=== PATIENT | female | born 1945 | race Caucasian/White ===

== ENCOUNTER → 2017-11-25 09:49 | Outpatient (CLI) | payer MEDICARE, SELFPAY ==
--- NOTE | 2017-11-25 | DI.MG.S_ITS ---
BILATERAL DIGITAL SCREENING MAMMOGRAM 3D/2D WITH CAD: 11/25/2017 CLINICAL: Routine screening. Comparison is made to exams dated: 11/10/2016 mammogram, 10/17/2015 mammogram, and 10/04/2014 mammogram - [facility]. The tissue of both breasts is heterogeneously dense. This may lower the sensitivity of mammography. Current study was also evaluated with a Computer Aided Detection (CAD) system. No significant masses, calcifications, or other findings are seen in either breast. There has been no significant interval change. IMPRESSION: NEGATIVE There is no mammographic evidence of malignancy. A 1 year screening mammogram is recommended. This exam was interpreted at Station ID: [id number]. NOTE: For mammograms, a report in lay terms will be sent to the patient. Approximately 15% of breast malignancies will not be visualized mammographically. In the management of a palpable breast mass, a negative mammogram must not discourage biopsy of a clinically suspicious lesion. Electronically Signed By: Prashanth lawrence/ashley:11/25/2017 10:53:22 letter sent: Normal Exam ACR BI-RADS Category 1: Negative [id number]
== END ==
PROVIDERS: PCP Family Medicine; Visit Provider Family Medicine
DX: Z12.31 Encounter for screening mammogram for malignant neoplasm of breast (principal)
CPT/HCPCS: 77063; 77067

== ENCOUNTER → 2018-03-14 18:38 | Outpatient (CLI) | payer MEDICARE, SELFPAY ==
--- NOTE | 2018-03-14 18:41 | DI.MRI.S_ITS ---
PROCEDURE: MR LUMBAR SPINE WO CON INDICATIONS: Back pain with sciatica TECHNIQUE: Noncontrast sagittal T1 spin echo and T2 fast echo, sagittal STIR, axial T1 and T2 fast spin echo through the lumbar spine. In cases with scoliosis, additional coronal T2 fast spin echo may be performed. COMPARISON: [facility], , L-SPINE WITHOUT CONTRAST, 03/12/2014, 18:11. FINDINGS: Image quality: Excellent. Alignment and Curvature: There is severe levoscoliosis with the apex at L4. There is grade 1 anterolisthesis of L5 on S1. Bone Marrow: Marrow is of normal overall signal. No acute vertebral body compression fractures. Spinal Cord: Conus medullaris terminates at the L1 at L2 level. Visualized cord demonstrates normal signal and size. Paraspinous Soft Tissues: No paravertebral masses. L1-L2: Moderate loss of disc height and disc desiccation. There is mild posterior disc bulge and left posterior lateral disc-osteophyte complex. The central canal is mildly narrowed. Moderate left foraminal stenosis, slightly increased from the last exam. No right foraminal stenosis. L2-L3: Moderate loss of disc height and disc desiccation. There is mild posterior disc bulge. Moderate left facet arthropathy The central canal is mildly narrowed. Moderate bilateral foraminal stenosis, slightly increased from the last exam. L3-L4: Mvoq-xn-vicadbuq loss of disc height and disc desiccation. There is diffuse posterior disc bulge and right posterolateral disc osteophyte complex. Moderate right facet arthropathy The central canal is gbly-qd-sloehxfyyp narrowed. Moderate right and mild left foraminal stenosis, unchanged from the last exam. L4-L5: Mild loss of disc height and disc desiccation. There is diffuse posterior disc bulge and disc osteophyte complex. Moderate right and mild left facet arthropathy The central canal is mildly narrowed. Severe right and mild left foraminal stenosis, increased from the last exam. L5-S1: Preserved disc height and disc desiccation. There is diffuse posterior disc bulge and disc osteophyte complex. Moderate right and moderate left facet arthropathy The central canal is mildly narrowed. Mild bilateral foraminal stenosis, unchanged from the last exam. IMPRESSION: 1. Multilevel degenerative disc disease and facet arthropathy as described. 2. Gaxy-oc-yivspfjo central canal stenosis at L3-L4, and mild central canal stenosis at other levels. 3. Multilevel foraminal stenosis, severe at L4-L5 on the right, moderate to mild at multiple other levels as described. 4. Severe scoliosis. Dictated by: Kit Martinez M.D. on 03/15/2018 at 9:32 Transcribed by: SARAH on 03/15/2018 at 9:49 Approved by: Kit Martinez M.D. on 03/15/2018 at 18:08
== END ==
PROVIDERS: PCP Family Medicine; Visit Provider Family Medicine
DX: M51.16 Intervertebral disc disorders with radiculopathy, lumbar region (principal); M48.061 Spinal stenosis, lumbar region without neurogenic claudication; M41.86 Other forms of scoliosis, lumbar region
CPT/HCPCS: 72148

== ENCOUNTER 2018-03-29 12:16 | Outpatient (CLI) | payer MEDICARE, SELFPAY ==
[2018-03-29] VITALS (8 sets, daily range): BP systolic 133–156; BP diastolic 78–91; PULSE 70–80; RESP 16–18; TEMP 36.2; O2SAT 97–100
--- NOTE | 2018-03-29 12:17 | DI.RAD.S_ITS ---
PROCEDURE: PAIN L/S TRANSFORAMINAL INJECT INDICATIONS: [id number] Right L3/4 Transforaminal Epidural Steroid Injection FINDINGS: Fluoroscopic spot filming was performed to verify placement of spinal needles at the L3-L4 level(s), as labeled on the films. Appropriate location(s) of the needle tip(s) was confirmed by injection of iodinated contrast. IMPRESSION: Fluoroscopy for pain management. Dictated by: Kit Martinez M.D. on 03/29/2018 at 13:38 Approved by: Kit Martinez M.D. on 03/29/2018 at 13:39
[2018-03-29] MEDS: MIDAZOLAM 5 MG/5 ML VIAL IV (13:07)
[2018-03-29] MEDS: IOPAMIDOL 15 ML VIAL 3 ML INJ (13:14)
[2018-03-29] MEDS: DEXAMETHASONE 10 MG/ML VIAL 20 MG INJ (13:15)
[2018-03-29] MEDS: methylPREDNISolone acetate 80 MG/ML VIAL INJ (13:15)
--- NOTE | 2018-03-29 13:25 | P.PCN_ITS ---
Procedures Date/Time Date of procedure: 03/29/18 Time of procedure: 13:24 General Procedure description: PROVIDER: Ramon Payton DO Operative Note PREOP DIAGNOSIS 1. FORAMINAL STENOSIS WITH LE SYMPTOMS, POST OP DIAGNOSIS 1. FORAMINAL STENOSIS WITH LE SYMPTOMS, PROCEDURES 1. FLUOROSCOPICALLY GUIDED CONTRAST CONTROLLED TRANSFORAMINAL EPIDURAL STEROID INJECTION - RIGHT L3/4 TFESI SURGEON: Ramon Payton DO INDICATIONS Naomi is referred by Dr. Pryor for treatment of Foraminal Stenosis with right LE Symptoms FINDINGS Foraminal Nerve Root Compression secondary to disc disease and facet hypertrophy DESCRIPTION OF PROCEDURE Following denial of allergy and review of potential side effects and complications, including, but not necessarily limited to, infection, allergic reaction, local tissue breakdown, stroke, temporary or permanent nerve injury, paralysis, and possible , the patient indicated that the patient understood and agreed to proceed. An informed consent document was signed by the patient, witnessed by a nurse, and placed in the patient's chart. Additionally, other treatment options including medications, modalities, and physical therapy were reviewed with the patient. After review of previous anaesthesic history and IV conscious sedation the patient was deemed safe to proceed with todays procedure with IV conscious sedation as ASA class II designation. Safety time-out was performed to confirm patient ID, procedure to be performed and site of procedure. IV sedation was accomplished with a combination of 3mg was administered by the RN after DO order , titrated to patient comfort during the course of the procedure while the patient remained responsive to all verbal commands In the prone position following sterile prep and drape of the lumbar region, the right L3/4 posterior neuroforamen was identified fluoroscopically. The skin was anesthetized via a 25-gauge 1.5-inch needle with 1% lidocaine solution. At this point, a 25-gauge 3.5-inch spinal needle was atraumatically introduced and advanced under fluoroscopic guidance through the posterior right L3/4 neuroforamen to approximately the anterior aspect of the canal. Depth was confirmed on lateral view. Following negative aspiration, injection of approximately 1.5 cc of Isovue 200 under live fluoroscopy in the AP view confirmed excellent flow along the nerve root, into the epidural space without vascular or intrathecal uptake observed Radiological data, including multiple fluoroscopic views of the lumbosacral spine, reveal a spinal needle at the right L3/4 posterior neuroforamen. Subsequent views show flow of contrast material flowing superiorly and inferiorly along the nerve root confirming epidural flow. Subsequently, a test dose of 1.5 cc of 1% lidocaine solution was administered and patient was observed for two minutes for signs or symptoms of complications , including abdominal pain, shortness of breath, bilateral upper or lower extremity weakness, nausea and vomiting, prior to steroid injection. At this point, a total of 3 cc or 20 mg of dexamethasone and 80mg Depo medrol was injected without incident. The patient tolerated the procedure well without signs or symptoms of complications prior to transfer to the recovery area continued monitoring without incident. The patient was then transferred to the recovery area where they were observed for an appropriate time after the injection. The patient reported a VAS score of 7 prior to the procedure and a post-procedure VAS of 0. Total Fluoroscopy Time: 24.2 seconds Total Conscious Sedation Time: 24min POST OP INSTRUCTIONS The patient was provided a Pain Log to continue to record their response to the target-specific procedure prior to follow-up visit with their referring physician. Additionally, specific post-injection care instructions and a contact number to our office were provided if concerns arise regarding possible complications associated with the procedure are suspected. Ramon Payton, Complications: none
== END 2018-03-29 14:50 | disposition home or self-care (01) ==
LOC: RAD 12:17
PROVIDERS: PCP Family Medicine; Visit Provider Physical Medicine & Rehabilitation
DX: M48.061 Spinal stenosis, lumbar region without neurogenic claudication (principal); M51.16 Intervertebral disc disorders with radiculopathy, lumbar region
CPT/HCPCS: 64483; 99152; J1040; J1100; J2250

== ENCOUNTER → 2018-05-02 10:37 | Outpatient (CLI) | payer MEDICARE, SELFPAY ==
[2018-05-02 11:34] LABS: Add Manual Diff / Slide Review NO; Basophils Percent Auto 0.6 % (0-2); Eosinophils Percent Auto 1.2 % (2-4); Hematocrit 44.2 % (36-46); Lymphocytes Percent Auto 24.1 % (25-40); Mean Corpuscular HGB Conc 33.9 % (30-36); Mean Corpuscular Hemoglobin 30.7 PG (26-34); Mean Corpuscular Volume 90.6 fL (80-100); Neutrophils Absolute Auto 3900 /uL (3000-5900); Neutrophils Percent Auto 67.1 % (50-75); Platelet Count 201 X10^3/uL (150-400); Red Blood Cell Count 4.87 X10^6/uL (4.0-5.2); White Blood Cell Count 5.8 X10^3/uL (4.5-11.0)
[2018-05-02 11:43] LABS: Alanine Aminotransferase 30 IU/L (9-52); Albumin 4.8 g/dL (3.5-5.0); Albumin Globulin Ratio 1.7 (1.0-2.8); Alkaline Phosphatase 78 U/L (38-126); Aspartate Aminotransferase 24 IU/L (14-36); Bilirubin Total 0.9 mg/dL (0.2-1.3); Blood Urea Nitrogen 15 mg/dL (7-17); Calcium 9.7 mg/dL (8.4-10.2); Carbon Dioxide 28 mmol/L (22-32); Chloride 105 mmol/L (98-107); Cholesterol 257 mg/dL (140-199); Estimated Glomerular Filt Rate 54.1 mL/min (>60); Globulin 2.9 g/dL (1.7-4.1); Glucose 113 mg/dL (80-110); HDL Cholesterol 101 mg/dL (40-60); HEMOLYSIS < 15 (0-50); LDL Cholesterol Calculated 111 mg/dL (<100); Potassium 4.3 mmol/L (3.4-5.1); Sodium 144 mmol/L (137-145); Total Protein 7.7 g/dL (6.3-8.2); Triglycerides 223 mg/dL (35-150)
[2018-05-02 12:24] LABS: TSH w/ Reflex to FT4 1.04 uIU/mL (0.47-4.68)
== END ==
PROVIDERS: PCP Family Medicine; Visit Provider Family Medicine
DX: E03.9 Hypothyroidism, unspecified (principal); E78.5 Hyperlipidemia, unspecified
CPT/HCPCS: 36415; 80053; 80061; 84443; 85025

== ENCOUNTER → 2018-05-04 11:03 | Outpatient (CLI) | payer MEDICARE, SELFPAY ==
[2018-05-04 11:37] LABS: INR 1.1 (0.9-1.3); Prothrombin Time 11.3 SECONDS (10.1-12.7)
[2018-05-04 11:44] LABS: Hemoglobin A1C% w Est Avg Glu 5.1 % (4.0-6.0)
== END ==
PROVIDERS: PCP Family Medicine; Visit Provider Family Medicine
DX: R23.8 Other skin changes (principal); R73.09 Other abnormal glucose
CPT/HCPCS: 36415; 83036; 85610

== ENCOUNTER 2018-06-07 10:30 | Outpatient (RCR) | payer MEDICARE, SELFPAY ==
--- NOTE | 2018-05-18 17:53 | PT.OIE ---
Current Diagnoses Scoliosis, unspecified (05/18/18) Spinal stenosis, lumbar region without neurogenic claudication (05/18/18) Difficulty in walking, not elsewhere classified (05/18/18) Abnormal posture (05/18/18) Weakness (05/18/18) Past Medical History (Last Reviewed 04/29/18 @ 10:01 by Ramon Payton DO) Actinic keratosis (Chronic) Constipation (Chronic) Depression (Chronic) Fibromyalgia (Chronic) Hemorrhoids (Chronic) Hyperlipidemia (Chronic) Hypothyroidism (Chronic) Osteoporosis (Chronic) Past Surgical History (Last Reviewed 04/29/18 @ 10:01 by Ramon Payton DO) Status post appendectomy (Resolved 1971) Status post delivery (Resolved 1970) Status post colonoscopy (Resolved 07/05/10) Status post hysterectomy with oophorectomy (Resolved 1995) Provider Visit Care Team Role Provider Type Nelsy Pryor DO Primary Care Provider Physician Specialty: Family Practice Address: [address] [place] [address] Email: [email or web address] Ramon Payton DO Attending Provider Physician Specialty: Physiatry Pain Management Address: [address] [place] [id number] Email: Physical Therapy Initial Evaluation PT-OP-A Visit Information Start: 05/18/18 09:11 Freq: Status: Active Protocol: Document 05/18/18 09:12 ML (Rec: 05/18/18 12:02 ML [id number]) Out-Patient Physical Therapy Visit Information Visit Information Visit Type Initial Evaluation Visit Start Time 09:00 Visit Stop Time 09:45 Total Visit Minutes 45 Visit Number 1 Number of COLD WATER MACHINE OPERATOR Visits 0 PT-OP-B Current Condition Start: 05/18/18 09:11 Freq: Status: Active Protocol: Document 05/18/18 09:12 ML (Rec: 05/18/18 12:02 ML [id number]) Current Condition History of Current Condition Current Complaints R leg pain/discomfort History of Current Condition Pt reports to PT with a diagnosis of a bulging disk, stenosis, and severe scoliosis that are significant factors in the pt's current pain. Pt's pain is due the impingement occurring from the pt's low back, where she indicates the origination from her R SI region. With PT, the patient will be able to improve her mobility, strength, and proper mechanics for her daily activities through neuromuscular re-education in order to eliminate pain that is elicited from her current diagnoses. Pt notes that the pain is 6-7/10 on average, and relieved with resting on her back and heat to about 4/10 pain. She also states that she uses an SI belt for times of activity and occasionally a knee brace on R as well. Pt notes that the pain is mostly noticed as soon as she stops activity. 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 but she has had high levels of pain and discomfort through these exercises. Pt states that she gets R leg pain when she is laying on either her L or R side, and finds relief on her back. Pt is able to reposition at night when she wakes from pain in either of those positions and returns to her back and can sleep again. Pt notes she moves in her sleep frequently but is getting better about sleeping on her back. Pt notes two abdominal surgeries and a signifcant fall about 10 years ago when she became unconscious and hit her head on the wall and fell hard to the ground. Pt notes feeling off on her R side when she walks. Her R leg pain also bothers her R knee at times. Pt notices the R leg pain throughout her entire thigh region, but states there's more tightness on the broad lateral surface. The pt inidicates the pain orginiating from her R SI region. 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 Prior Functional Status Baseline Function- ADL's Independent Baseline Function- Mobility Independent Baseline Function- Gait Antalgic PT-OP-C Subjective Start: 05/18/18 09:11 Freq: Status: Active Protocol: Document 05/18/18 09:12 ML (Rec: 05/18/18 12:25 ML [id number]) OP-PT Subjective Patient Comments Patient Comments Pt does not complain of inc pain throughout physical assessment. Pt is able to move through motions with maintaining average pain level . Patient Reported Progress Same Patient Questionnaires Oswestry Low Back Index Oswestry Score 13 Oswestry Impairment 20 to 39% Impaired (Score 20- 39) OP-PT Pain Assessment Location R leg Pain Location Details Lateral surface most, but globally though her R leg from the SI region Intensity 7 Scale Used Numeric (1 - 10) Description Aching Tightness With Movement Description- Other discomfort Frequency Constant Pain Duration always, but relieved some with supine and heat Pain Aggravating Factors ADL's Activity Exercise Walking Stair Climbing Bending Lifting Pain Alleviating Factors Heat Lying Supine PT-OP-G Mobility & Gait Start: 05/18/18 09:11 Freq: Status: Active Protocol: Document 05/18/18 09:12 [facility] (Rec: 05/18/18 10:02 [facility] [id number]) OP Gait Assessment Comments Gait Comments Pt has lat shear of body to L and has dec RUE arm swing. Pt overall uses leg motions & min pelvic rotations to propel herself with dec use of trunk. PT-OP-J Posture/Palpation/Skin Start: 05/18/18 09:11 Freq: Status: Active Protocol: Document 05/18/18 09:12 [facility] (Rec: 05/18/18 10:02 [facility] [id number]) Posture Evaluation [facility] Postural Classification System Kaley Postural Classifications Posterior/Posterior PT-OP-K Range of Motion Start: 05/18/18 09:11 Freq: Status: Active Protocol: Document 05/18/18 09:12 [facility] (Rec: 05/18/18 10:02 [facility] [id number]) Lumbar Spine Range of Motion Lumbar Spine Active Testing Position Standing Rotation Left 44 Rotation Right 40 Comments Tape measure used for flex: 18 in to 22 in; ext 18 in to 16. 5 in; SB R 7 in- pain returning to standing on R side, L 6.5 in; rotation in degrees PT-OP-L Special Tests Start: 05/18/18 09:11 Freq: Status: Active Protocol: Document 05/18/18 09:12 [facility] (Rec: 05/18/18 10:02 [facility] [id number]) Special Tests Lumbar Spine Special Tests Slump Test Results R positive Straight Leg Raise Test Results R ~ 65 deg HS stretch; L ~75 deg HS stretch PT-OP-M Strength Start: 05/18/18 09:11 Freq: Status: Active Protocol: Document 05/18/18 09:12 [facility] (Rec: 05/18/18 10:02 [facility] [id number]) Hip Strength Hip Manual Muscle Testing Right Flexion (L2) 4 Good Extension (S1) 4- Good- Abduction 4- Good- External Rotation 4 Good Internal Rotation 4 Good Left Flexion (L2) 4 Good Extension (S1) 4+ Good+ Abduction 4+ Good+ External Rotation 4 Good Internal Rotation 4+ Good+ Knee Strength Knee Manual Muscle Testing Right Flexion (S2) 5 Normal Extension (L3) 5 Normal Left Flexion (S2) 5 Normal Extension (L3) 5 Normal PT-OP-T Assessment and Plan Start: 05/18/18 09:11 Freq: Status: Active Protocol: Document 05/18/18 09:12 ML (Rec: 05/18/18 12:25 ML [id number]) Physical Therapy Assessment Rehab Potential Rehabilitation Potential Good Evaluation Complexity Number of Personal Factors/Comorbidities 3 or More Number of Body Systems Impaired 4 or More Clinical Presentation at Evaluation Stable Impairments Impairments Activity Tolerance Functional Activities Functional Mobility Gait Pain Posture ROM Soft Tissue Mobility Strength Goals 3 Impairment pain Short Term Goal (STG) Pt will be able to sleep at night not waking due to pain. STG Duration 06/17/18 Adzing And Boring Machine Operator Goal (LTG) Pt will be able to go throughout her daily activities with pain no greater than 4/10. LTG Duration 07/18/18 2 Impairment dec strength Short Term Goal (STG) Pt will be independent with HEP in order to inc strength for functional activities. STG Duration 06/17/18 Adzing And Boring Machine Operator Goal (LTG) Pt will have 5/5 strength for all LE strength in order to do IADLs like gardening, pilot supervisor, etc. LTG Duration 07/18/18 1 Impairment dec activity tolerance Adzing And Boring Machine Operator Goal (LTG) Pt's pain with walking will be no greater than 4/10. LTG Duration 07/18/18 Assessment Summary Assessment Pt's symptoms are consistent with neural impingement through her stenosis and disk bulge, but the descriptive words do not match solely neural symptoms and the location of the pain is not following a specific nerve distribution. The gross area in which the pain encompasses indicates that there is also additional components of postural and structural abnormalities of her joints through her lumbar spine, pelvis, and sacrum, as well as potentially her hip, that are contributing to this pain. Pt would benefit from PT to decrease these abnormalities as able, increase neural gliding, and allowing the pt to return to her functional activities with decreased pain through her R LE. Physical Therapy Plan Frequency and Duration Frequency of Treatment 2x/Week Duration of Treatment 2 months Plan of Care Start Date 05/18/18 Plan of Care End Date 07/18/18 Therapeutic Interventions Therapeutic Interventions Aquatic Therapy Gait Training Home Exercise Program Joint Mobilizations Manual Therapy Neuromuscular Re-education Patient/Caregiver Education Self-Care/Home Management Soft Tissue Mobilization Taping Therapeutic Activities Therapeutic Exercises Modalities Cold Pack/Ice Massage Electric Stimulation Hot Packs Infrared Therapy Iontophoresis Ultrasound Next Visit Focus/Plan Next Note Type Treatment Note Next Visit Plan HEP for posture, hip strength (ext/bridge and abd), PNF pelvis
--- NOTE | 2018-05-18 17:54 | PT.OPPOC ---
Current Diagnoses Scoliosis, unspecified (05/18/18) Spinal stenosis, lumbar region without neurogenic claudication (05/18/18) Difficulty in walking, not elsewhere classified (05/18/18) Abnormal posture (05/18/18) Weakness (05/18/18) Provider Visit Care Team Role Provider Type Nelsy Pryor DO Primary Care Provider Physician Specialty: Family Practice Address: [address] [place] [address], [id number] Email: [email or web address] Ramon Payton DO Attending Provider Physician Specialty: Physiatry Pain Management Address: [address] [place] [address], [id number] Email: Plan Of Care PT-OP-T Assessment and Plan Start: 05/18/18 09:11 Freq: Status: Active Protocol: Document 05/18/18 09:12 ML (Rec: 05/18/18 12:25 ML [id number]) Physical Therapy Assessment Rehab Potential Rehabilitation Potential Good Evaluation Complexity Number of Personal Factors/Comorbidities 3 or More Number of Body Systems Impaired 4 or More Clinical Presentation at Evaluation Stable Impairments Impairments Activity Tolerance Functional Activities Functional Mobility Gait Pain Posture ROM Soft Tissue Mobility Strength Goals 3 Impairment pain Short Term Goal (STG) Pt will be able to sleep at night not waking due to pain. STG Duration 06/17/18 Fence Erector Supervisor Goal (LTG) Pt will be able to go throughout her daily activities with pain no greater than 4/10. LTG Duration 07/18/18 2 Impairment dec strength Short Term Goal (STG) Pt will be independent with HEP in order to inc strength for functional activities. STG Duration 06/17/18 Fence Erector Supervisor Goal (LTG) Pt will have 5/5 strength for all LE strength in order to do IADLs like gardening, leguillon debeader, etc. LTG Duration 07/18/18 1 Impairment dec activity tolerance Fence Erector Supervisor Goal (LTG) Pt's pain with walking will be no greater than 4/10. LTG Duration 07/18/18 Assessment Summary Assessment Pt's symptoms are consistent with neural impingement through her stenosis and disk bulge, but the descriptive words do not match solely neural symptoms and the location of the pain is not following a specific nerve distribution. The gross area in which the pain encompasses indicates that there is also additional components of postural and structural abnormalities of her joints through her lumbar spine, pelvis, and sacrum, as well as potentially her hip, that are contributing to this pain. Pt would benefit from PT to decrease these abnormalities as able, increase neural gliding, and allowing the pt to return to her functional activities with decreased pain through her R LE. Physical Therapy Plan Frequency and Duration Frequency of Treatment 2x/Week Duration of Treatment 2 months Plan of Care Start Date 05/18/18 Plan of Care End Date 07/18/18 Therapeutic Interventions Therapeutic Interventions Aquatic Therapy Gait Training Home Exercise Program Joint Mobilizations Manual Therapy Neuromuscular Re-education Patient/Caregiver Education Self-Care/Home Management Soft Tissue Mobilization Taping Therapeutic Activities Therapeutic Exercises Modalities Cold Pack/Ice Massage Electric Stimulation Hot Packs Infrared Therapy Iontophoresis Ultrasound Next Visit Focus/Plan Next Note Type Treatment Note Next Visit Plan HEP for posture, hip strength (ext/bridge and abd), PNF pelvis Plan of Care Dates Plan of Care Start Date 05/18/18 Plan of Care End Date 07/18/18 Please Sign and Return: I have reviewed this Plan of Care and certify that the skilled therapy services above are required to meet the patient?s needs. Physician Signature Date Printed Name and Credentials Clinical Instructor Signature Printed Name and Credentials
--- NOTE | 2018-05-25 18:22 | PT.OTN ---
Current Diagnoses Scoliosis, unspecified (05/25/18) Spinal stenosis, lumbar region without neurogenic claudication (05/25/18) Physical Therapy Treatment Note PT-OP-A Visit Information Start: 05/18/18 09:11 Freq: Status: Active Protocol: Document 05/25/18 18:11 ML (Rec: 05/25/18 18:18 ML [id number]) Out-Patient Physical Therapy Visit Information Visit Information Visit Type Treatment Note Visit Start Time 16:00 Visit Stop Time 16:48 Total Visit Minutes 48 Visit Number 2/10 Number of POOL MANAGER Visits 0 PT-OP-B Current Condition Start: 05/18/18 09:11 Freq: Status: Active Protocol: Document 05/18/18 09:12 ML (Rec: 05/18/18 12:02 ML [id number]) Current Condition History of Current Condition Current Complaints R leg pain/discomfort History of Current Condition Pt reports to PT with a diagnosis of a bulging disk, stenosis, and severe scoliosis that are significant factors in the pt's current pain. Pt's pain is due the impingement occurring from the pt's low back, where she indicates the origination from her R SI region. With PT, the patient will be able to improve her mobility, strength, and proper mechanics for her daily activities through neuromuscular re-education in order to eliminate pain that is elicited from her current diagnoses. Pt notes that the pain is 6-7/10 on average, and relieved with resting on her back and heat to about 4/10 pain. She also states that she uses an SI belt for times of activity and occasionally a knee brace on R as well. Pt notes that the pain is mostly noticed as soon as she stops activity. Pt is still able to do activities such was walking , ambulating stairs, gardening , broom builder, etc. but she has had high levels of pain and discomfort through these exercises. Pt states that she gets R leg pain when she is laying on either her L or R side, and finds relief on her back. Pt is able to reposition at night when she wakes from pain in either of those positions and returns to her back and can sleep again. Pt notes she moves in her sleep frequently but is getting better about sleeping on her back. Pt notes two abdominal surgeries and a signifcant fall about 10 years ago when she became unconscious and hit her head on the wall and fell hard to the ground. Pt notes feeling off on her R side when she walks. Her R leg pain also bothers her R knee at times. Pt notices the R leg pain throughout her entire thigh region, but states there's more tightness on the broad lateral surface. The pt inidicates the pain orginiating from her R SI region. Developmental History Developmental History Severe scoliosis Treatment Goals Patient/Caregiver Goals Pt would like to participate in her usual activities such as gardening, broom builder , and walking without pain/ discomfort. Prior Functional Status Baseline Function- ADL's Independent Baseline Function- Mobility Independent Baseline Function- Gait Antalgic PT-OP-C Subjective Start: 05/18/18 09:11 Freq: Status: Active Protocol: Document 05/25/18 18:11 ML (Rec: 05/25/18 18:18 ML [id number]) OP-PT Subjective Patient Comments Patient Comments pt notes that she did a lot of activity yesterday and is in a good amount of pain today. PT-OP-G Mobility & Gait Start: 05/18/18 09:11 Freq: Status: Active Protocol: Document 05/18/18 09:12 [facility] (Rec: 05/18/18 10:02 [facility] [id number]) OP Gait Assessment Comments Gait Comments Pt has lat shear of body to L and has dec RUE arm swing. Pt overall uses leg motions & min pelvic rotations to propel herself with dec use of trunk. PT-OP-J Posture/Palpation/Skin Start: 05/18/18 09:11 Freq: Status: Active Protocol: Document 05/18/18 09:12 [facility] (Rec: 05/18/18 10:02 [facility] [id number]) Posture Evaluation Kaley Postural Classification System Kaley Postural Classifications Posterior/Posterior PT-OP-K Range of Motion Start: 05/18/18 09:11 Freq: Status: Active Protocol: Document 05/18/18 09:12 [facility] (Rec: 05/18/18 10:02 [facility] [id number]) Lumbar Spine Range of Motion Lumbar Spine Active Testing Position Standing Rotation Left 44 Rotation Right 40 Comments Tape measure used for flex: 18 in to 22 in; ext 18 in to 16. 5 in; SB R 7 in- pain returning to standing on R side, L 6.5 in; rotation in degrees PT-OP-L Special Tests Start: 05/18/18 09:11 Freq: Status: Active Protocol: Document 05/18/18 09:12 [facility] (Rec: 05/18/18 10:02 [facility] [id number]) Special Tests Lumbar Spine Special Tests Slump Test Results R positive Straight Leg Raise Test Results R ~ 65 deg HS stretch; L ~75 deg HS stretch PT-OP-M Strength Start: 05/18/18 09:11 Freq: Status: Active Protocol: Document 05/18/18 09:12 [facility] (Rec: 05/18/18 10:02 [facility] [id number]) Hip Strength Hip Manual Muscle Testing Right Flexion (L2) 4 Good Extension (S1) 4- Good- Abduction 4- Good- External Rotation 4 Good Internal Rotation 4 Good Left Flexion (L2) 4 Good Extension (S1) 4+ Good+ Abduction 4+ Good+ External Rotation 4 Good Internal Rotation 4+ Good+ Knee Strength Knee Manual Muscle Testing Right Flexion (S2) 5 Normal Extension (L3) 5 Normal Left Flexion (S2) 5 Normal Extension (L3) 5 Normal PT-OP-Q Treatments Start: 05/18/18 09:11 Freq: Status: Active Protocol: Document 05/25/18 18:11 ML (Rec: 05/25/18 18:18 ML [id number]) Therapeutic Exercises Supine Exercises bridge Side bilateral Comments HEP; cues for engaging core first Sidelying Exercises clamshells Resistance lvl 1 Comments HEP; cues for core engage first; towel and pillows for comfort hip abd Resistance lvl 1 Comments HEP; cues for core engage first; towel and pillows for comfort Manual Therapy Treatment Soft Tissue Mobilization IT band Body Location IT band distally Mobilization Type Myofascial Release Sustained Pressure Body Position Hooklying Comments active DF/PF; R Self-Care/Home Management Treatment Education Patient Education Joint Protection Pain Management Posture Other Education sleeping position in side lying; propping with pillows and towel; pt unable to lay on either side prior; pt also edu on standing and sitting posture for rib and neck position especially; also addressed the importance of ice and heat when aggravated or after manual treatment PT-OP-T Assessment and Plan Start: 05/18/18 09:11 Freq: Status: Active Protocol: Document 05/25/18 18:11 ML (Rec: 05/25/18 18:18 ML [id number]) Physical Therapy Assessment Goals 3 Impairment pain Short Term Goal (STG) Pt will be able to sleep at night not waking due to pain. STG Duration 06/17/18 Correction Goal (LTG) Pt will be able to go throughout her daily activities with pain no greater than 4/10. LTG Duration 07/18/18 2 Impairment dec strength Short Term Goal (STG) Pt will be independent with HEP in order to inc strength for functional activities. STG Duration 06/17/18 Slitter Operator Goal (LTG) Pt will have 5/5 strength for all LE strength in order to do IADLs like gardening, broom builder, etc. LTG Duration 07/18/18 1 Impairment dec activity tolerance Correction Goal (LTG) Pt's pain with walking will be no greater than 4/10. LTG Duration 07/18/18 Assessment Summary Assessment Pt showed ability to maintain improved posture through educational adjustments both verbally and with tactile cues . Pt was able to lay both on L and R which she was unable to do prior to treatment. pt was able to achieve all HEP exercises without pain and correct mechanics after instruction and maintaining supported side lying posture. Pt's IT band was very tight and was addressed manually. pt notes relief after treament. Physical Therapy Plan Frequency and Duration Frequency of Treatment 2x/Week Duration of Treatment 2 months Plan of Care Start Date 05/18/18 Plan of Care End Date 07/18/18 Next Visit Focus/Plan Next Note Type Treatment Note Next Visit Plan review HEP for posture, hip strength (ext/bridge and abd), PNF pelvis R; soft tissue prn ; heat
--- NOTE | 2018-05-31 16:08 | PT.OTN ---
Current Diagnoses Scoliosis, unspecified (05/31/18) Spinal stenosis, lumbar region without neurogenic claudication (05/31/18) Physical Therapy Treatment Note PT-OP-A Visit Information Start: 05/18/18 09:11 Freq: Status: Active Protocol: Document 05/31/18 15:54 SA (Rec: 05/31/18 16:08 SA [email or web address]) Out-Patient Physical Therapy Visit Information Visit Information Visit Type Treatment Note Visit Start Time 14:30 Visit Stop Time 15:18 Total Visit Minutes 48 Visit Number 3/10 Number of ROCK CRUSHING MACHINE OPERATOR Visits 1 PT-OP-B Current Condition Start: 05/18/18 09:11 Freq: Status: Active Protocol: Document 05/18/18 09:12 ML (Rec: 05/18/18 12:02 ML [id number]) Current Condition History of Current Condition Current Complaints R leg pain/discomfort History of Current Condition Pt reports to PT with a diagnosis of a bulging disk, stenosis, and severe scoliosis that are significant factors in the pt's current pain. Pt's pain is due the impingement occurring from the pt's low back, where she indicates the origination from her R SI region. With PT, the patient will be able to improve her mobility, strength, and proper mechanics for her daily activities through neuromuscular re-education in order to eliminate pain that is elicited from her current diagnoses. Pt notes that the pain is 6-7/10 on average, and relieved with resting on her back and heat to about 4/10 pain. She also states that she uses an SI belt for times of activity and occasionally a knee brace on R as well. Pt notes that the pain is mostly noticed as soon as she stops activity. Pt is still able to do activities such was walking , ambulating stairs, gardening , analytics leader, etc. but she has had high levels of pain and discomfort through these exercises. Pt states that she gets R leg pain when she is laying on either her L or R side, and finds relief on her back. Pt is able to reposition at night when she wakes from pain in either of those positions and returns to her back and can sleep again. Pt notes she moves in her sleep frequently but is getting better about sleeping on her back. Pt notes two abdominal surgeries and a signifcant fall about 10 years ago when she became unconscious and hit her head on the wall and fell hard to the ground. Pt notes feeling off on her R side when she walks. Her R leg pain also bothers her R knee at times. Pt notices the R leg pain throughout her entire thigh region, but states there's more tightness on the broad lateral surface. The pt inidicates the pain orginiating from her R SI region. Developmental History Developmental History Severe scoliosis Treatment Goals Patient/Caregiver Goals Pt would like to participate in her usual activities such as gardening, analytics leader , and walking without pain/ discomfort. Prior Functional Status Baseline Function- ADL's Independent Baseline Function- Mobility Independent Baseline Function- Gait Antalgic PT-OP-C Subjective Start: 05/18/18 09:11 Freq: Status: Active Protocol: Document 05/31/18 15:54 SA (Rec: 05/31/18 16:08 SA [email or web address]) OP-PT Subjective Patient Comments Patient Comments Pt with c/o pain at low back and R lateral knee and thigh. States she feels about the same as last time. PT-OP-G Mobility & Gait Start: 05/18/18 09:11 Freq: Status: Active Protocol: Document 05/18/18 09:12 [facility] (Rec: 05/18/18 10:02 [facility] [id number]) OP Gait Assessment Comments Gait Comments Pt has lat shear of body to L and has dec RUE arm swing. Pt overall uses leg motions & min pelvic rotations to propel herself with dec use of trunk. PT-OP-J Posture/Palpation/Skin Start: 05/18/18 09:11 Freq: Status: Active Protocol: Document 05/18/18 09:12 [facility] (Rec: 05/18/18 10:02 [facility] [id number]) Posture Evaluation Kaley Postural Classification System Kaley Postural Classifications Posterior/Posterior PT-OP-K Range of Motion Start: 05/18/18 09:11 Freq: Status: Active Protocol: Document 05/18/18 09:12 [facility] (Rec: 05/18/18 10:02 [facility] [id number]) Lumbar Spine Range of Motion Lumbar Spine Active Testing Position Standing Rotation Left 44 Rotation Right 40 Comments Tape measure used for flex: 18 in to 22 in; ext 18 in to 16. 5 in; SB R 7 in- pain returning to standing on R side, L 6.5 in; rotation in degrees PT-OP-L Special Tests Start: 05/18/18 09:11 Freq: Status: Active Protocol: Document 05/18/18 09:12 [facility] (Rec: 05/18/18 10:02 [facility] [id number]) Special Tests Lumbar Spine Special Tests Slump Test Results R positive Straight Leg Raise Test Results R ~ 65 deg HS stretch; L ~75 deg HS stretch PT-OP-M Strength Start: 05/18/18 09:11 Freq: Status: Active Protocol: Document 05/18/18 09:12 [facility] (Rec: 05/18/18 10:02 [facility] [id number]) Hip Strength Hip Manual Muscle Testing Right Flexion (L2) 4 Good Extension (S1) 4- Good- Abduction 4- Good- External Rotation 4 Good Internal Rotation 4 Good Left Flexion (L2) 4 Good Extension (S1) 4+ Good+ Abduction 4+ Good+ External Rotation 4 Good Internal Rotation 4+ Good+ Knee Strength Knee Manual Muscle Testing Right Flexion (S2) 5 Normal Extension (L3) 5 Normal Left Flexion (S2) 5 Normal Extension (L3) 5 Normal PT-OP-Q Treatments Start: 05/18/18 09:11 Freq: Status: Active Protocol: Document 05/31/18 15:54 SA (Rec: 05/31/18 16:08 [email or web address]) Therapeutic Exercises Supine Exercises Pelvic Tilts Reps/Minutes 15x bridge Side bilateral Comments HEP; cues for engaging core first Sidelying Exercises clamshells Resistance lvl 1 Comments HEP; cues for core engage first; towel and pillows for comfort hip abd Resistance lvl 1 Comments HEP; cues for core engage first; towel and pillows for comfort Manual Therapy Treatment Soft Tissue Mobilization IT band Body Location IT band distally Mobilization Type Myofascial Release Sustained Pressure Body Position Hooklying Comments active DF/PF; R PT-OP-R Modalities Start: 05/18/18 09:11 Freq: Status: Active Protocol: Document 05/31/18 15:54 SA (Rec: 05/31/18 16:08 SA [email or web address]) Hot Pack/Cold Pack Treatment Hot Pack Location R ITB Treatment Duration (minutes) 10 Comments Pt responded well to heat. PT-OP-T Assessment and Plan Start: 05/18/18 09:11 Freq: Status: Active Protocol: Document 05/31/18 15:54 SA (Rec: 05/31/18 16:08 [email or web address]) Physical Therapy Assessment Assessment Summary Assessment Recommended pt use a roller on R ITB, pt to purchase one and use prior to next visit. Physical Therapy Plan Next Visit Focus/Plan Next Note Type Treatment Note Next Visit Plan Progress hip strengthening core stability program as tolerated. Assess patients response to rolling R ITB.
--- NOTE | 2018-06-03 10:33 | PT.OTN ---
Current Diagnoses Scoliosis, unspecified (06/03/18) Spinal stenosis, lumbar region without neurogenic claudication (06/03/18) Physical Therapy Treatment Note PT-OP-A Visit Information Start: 05/18/18 09:11 Freq: Status: Active Protocol: Document 06/03/18 10:25 SA (Rec: 06/03/18 10:32 SA [email or web address]) Out-Patient Physical Therapy Visit Information Visit Information Visit Type Treatment Note Visit Start Time 09:00 Visit Stop Time 09:48 Total Visit Minutes 48 Visit Number 4/10 Number of PRETZEL PACKER Visits 2 PT-OP-B Current Condition Start: 05/18/18 09:11 Freq: Status: Active Protocol: Document 05/18/18 09:12 ML (Rec: 05/18/18 12:02 ML [id number]) Current Condition History of Current Condition Current Complaints R leg pain/discomfort History of Current Condition Pt reports to PT with a diagnosis of a bulging disk, stenosis, and severe scoliosis that are significant factors in the pt's current pain. Pt's pain is due the impingement occurring from the pt's low back, where she indicates the origination from her R SI region. With PT, the patient will be able to improve her mobility, strength, and proper mechanics for her daily activities through neuromuscular re-education in order to eliminate pain that is elicited from her current diagnoses. Pt notes that the pain is 6-7/10 on average, and relieved with resting on her back and heat to about 4/10 pain. She also states that she uses an SI belt for times of activity and occasionally a knee brace on R as well. Pt notes that the pain is mostly noticed as soon as she stops activity. Pt is still able to do activities such was walking , ambulating stairs, gardening , perfume and toilet water maker, etc. but she has had high levels of pain and discomfort through these exercises. Pt states that she gets R leg pain when she is laying on either her L or R side, and finds relief on her back. Pt is able to reposition at night when she wakes from pain in either of those positions and returns to her back and can sleep again. Pt notes she moves in her sleep frequently but is getting better about sleeping on her back. Pt notes two abdominal surgeries and a signifcant fall about 10 years ago when she became unconscious and hit her head on the wall and fell hard to the ground. Pt notes feeling off on her R side when she walks. Her R leg pain also bothers her R knee at times. Pt notices the R leg pain throughout her entire thigh region, but states there's more tightness on the broad lateral surface. The pt inidicates the pain orginiating from her R SI region. Developmental History Developmental History Severe scoliosis Treatment Goals Patient/Caregiver Goals Pt would like to participate in her usual activities such as gardening, perfume and toilet water maker , and walking without pain/ discomfort. Prior Functional Status Baseline Function- ADL's Independent Baseline Function- Mobility Independent Baseline Function- Gait Antalgic PT-OP-C Subjective Start: 05/18/18 09:11 Freq: Status: Active Protocol: Document 06/03/18 10:32 SA (Rec: 06/03/18 10:33 SA [email or web address]) OP-PT Subjective Patient Comments Patient Comments [place] some relief after last visit. Think the heat and STM helps Patient Reported Progress Improving PT-OP-G Mobility & Gait Start: 05/18/18 09:11 Freq: Status: Active Protocol: Document 05/18/18 09:12 [facility] (Rec: 05/18/18 10:02 [facility] [id number]) OP Gait Assessment Comments Gait Comments Pt has lat shear of body to L and has dec RUE arm swing. Pt overall uses leg motions & min pelvic rotations to propel herself with dec use of trunk. PT-OP-J Posture/Palpation/Skin Start: 05/18/18 09:11 Freq: Status: Active Protocol: Document 05/18/18 09:12 [facility] (Rec: 05/18/18 10:02 [facility] [id number]) Posture Evaluation Kaley Postural Classification System Kaley Postural Classifications Posterior/Posterior PT-OP-K Range of Motion Start: 05/18/18 09:11 Freq: Status: Active Protocol: Document 05/18/18 09:12 [facility] (Rec: 05/18/18 10:02 [facility] [id number]) Lumbar Spine Range of Motion Lumbar Spine Active Testing Position Standing Rotation Left 44 Rotation Right 40 Comments Tape measure used for flex: 18 in to 22 in; ext 18 in to 16. 5 in; SB R 7 in- pain returning to standing on R side, L 6.5 in; rotation in degrees PT-OP-L Special Tests Start: 05/18/18 09:11 Freq: Status: Active Protocol: Document 05/18/18 09:12 [facility] (Rec: 05/18/18 10:02 [facility] [id number]) Special Tests Lumbar Spine Special Tests Slump Test Results R positive Straight Leg Raise Test Results R ~ 65 deg HS stretch; L ~75 deg HS stretch PT-OP-M Strength Start: 05/18/18 09:11 Freq: Status: Active Protocol: Document 05/18/18 09:12 [facility] (Rec: 05/18/18 10:02 [facility] [id number]) Hip Strength Hip Manual Muscle Testing Right Flexion (L2) 4 Good Extension (S1) 4- Good- Abduction 4- Good- External Rotation 4 Good Internal Rotation 4 Good Left Flexion (L2) 4 Good Extension (S1) 4+ Good+ Abduction 4+ Good+ External Rotation 4 Good Internal Rotation 4+ Good+ Knee Strength Knee Manual Muscle Testing Right Flexion (S2) 5 Normal Extension (L3) 5 Normal Left Flexion (S2) 5 Normal Extension (L3) 5 Normal PT-OP-Q Treatments Start: 05/18/18 09:11 Freq: Status: Active Protocol: Document 06/03/18 10:25 SA (Rec: 06/03/18 10:32 SA [email or web address]) Therapeutic Exercises Supine Exercises Pelvic Tilts Reps/Minutes 20 bridge Side bilateral Comments HEP; cues for engaging core first Sidelying Exercises clamshells Resistance lvl 1 Comments HEP; cues for core engage first; towel and pillows for comfort hip abd Resistance lvl 1 Comments HEP; cues for core engage first; towel and pillows for comfort Manual Therapy Treatment Soft Tissue Mobilization IT band Body Location IT band distally Mobilization Type Myofascial Release Sustained Pressure Body Position Hooklying Comments active DF/PF; R Used roller on ITB also Manual Techniques SI muscle energy technique Body Position supine 90/90 Reps/Duration 10 holds 5x Comments Pain free to assist with level pelvis. PT-OP-R Modalities Start: 05/18/18 09:11 Freq: Status: Active Protocol: Document 06/03/18 10:32 SA (Rec: 06/03/18 10:33 SA [email or web address]) Hot Pack/Cold Pack Treatment Hot Pack Patient Position Hooklying Patient Tolerance Good Comments At end of session PT-OP-T Assessment and Plan Start: 05/18/18 09:11 Freq: Status: Active Protocol: Document 06/03/18 10:25 SA (Rec: 06/03/18 10:32 SA [email or web address]) Physical Therapy Assessment Assessment Summary Assessment Pt purchased roller to use on R ITB at home. Applied slight heel lift to R shoe for trial, pt educated to remove if it increases irritation. Physical Therapy Plan Next Visit Focus/Plan Next Note Type Treatment Note Next Visit Plan Assess heel lift and use of roller. Progress stability program.
--- NOTE | 2018-06-07 11:43 | PT.OTN ---
Current Diagnoses Scoliosis, unspecified (06/07/18) Spinal stenosis, lumbar region without neurogenic claudication (06/07/18) Physical Therapy Treatment Note PT-OP-A Visit Information Start: 05/18/18 09:11 Freq: Status: Active Protocol: Document 06/07/18 11:32 SA (Rec: 06/07/18 11:43 SA [email or web address]) Out-Patient Physical Therapy Visit Information Visit Information Visit Type Treatment Note Visit Start Time 10:30 Visit Stop Time 11:15 Total Visit Minutes 45 Visit Number 11/11 PT-OP-B Current Condition Start: 05/18/18 09:11 Freq: Status: Active Protocol: Document 05/18/18 09:12 ML (Rec: 05/18/18 12:02 ML [id number]) Current Condition History of Current Condition Current Complaints R leg pain/discomfort History of Current Condition Pt reports to PT with a diagnosis of a bulging disk, stenosis, and severe scoliosis that are significant factors in the pt's current pain. Pt's pain is due the impingement occurring from the pt's low back, where she indicates the origination from her R SI region. With PT, the patient will be able to improve her mobility, strength, and proper mechanics for her daily activities through neuromuscular re-education in order to eliminate pain that is elicited from her current diagnoses. Pt notes that the pain is 6-7/10 on average, and relieved with resting on her back and heat to about 4/10 pain. She also states that she uses an SI belt for times of activity and occasionally a knee brace on R as well. Pt notes that the pain is mostly noticed as soon as she stops activity. 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 but she has had high levels of pain and discomfort through these exercises. Pt states that she gets R leg pain when she is laying on either her L or R side, and finds relief on her back. Pt is able to reposition at night when she wakes from pain in either of those positions and returns to her back and can sleep again. Pt notes she moves in her sleep frequently but is getting better about sleeping on her back. Pt notes two abdominal surgeries and a signifcant fall about 10 years ago when she became unconscious and hit her head on the wall and fell hard to the ground. Pt notes feeling off on her R side when she walks. Her R leg pain also bothers her R knee at times. Pt notices the R leg pain throughout her entire thigh region, but states there's more tightness on the broad lateral surface. The pt inidicates the pain orginiating from her R SI region. 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 Prior Functional Status Baseline Function- ADL's Independent Baseline Function- Mobility Independent Baseline Function- Gait Antalgic PT-OP-C Subjective Start: 05/18/18 09:11 Freq: Status: Active Protocol: Document 06/07/18 11:32 SA (Rec: 06/07/18 11:43 SA [id number]) OP-PT Subjective Patient Comments Patient Comments Pt expressed frustration with continued symptoms in R buttock and ITB, although today is better than yesterday . Patient Reported Progress Same PT-OP-G Mobility & Gait Start: 05/18/18 09:11 Freq: Status: Active Protocol: Document 05/18/18 09:12 [facility] (Rec: 05/18/18 10:02 [facility] [id number]) OP Gait Assessment Comments Gait Comments Pt has lat shear of body to L and has dec RUE arm swing. Pt overall uses leg motions & min pelvic rotations to propel herself with dec use of trunk. PT-OP-J Posture/Palpation/Skin Start: 05/18/18 09:11 Freq: Status: Active Protocol: Document 05/18/18 09:12 [facility] (Rec: 05/18/18 10:02 [facility] [id number]) Posture Evaluation Kaley Postural Classification System Kaley Postural Classifications Posterior/Posterior PT-OP-K Range of Motion Start: 05/18/18 09:11 Freq: Status: Active Protocol: Document 05/18/18 09:12 [facility] (Rec: 05/18/18 10:02 [facility] [id number]) Lumbar Spine Range of Motion Lumbar Spine Active Testing Position Standing Rotation Left 44 Rotation Right 40 Comments Tape measure used for flex: 18 in to 22 in; ext 18 in to 16. 5 in; SB R 7 in- pain returning to standing on R side, L 6.5 in; rotation in degrees PT-OP-L Special Tests Start: 05/18/18 09:11 Freq: Status: Active Protocol: Document 05/18/18 09:12 [facility] (Rec: 05/18/18 10:02 [facility] [id number]) Special Tests Lumbar Spine Special Tests Slump Test Results R positive Straight Leg Raise Test Results R ~ 65 deg HS stretch; L ~75 deg HS stretch PT-OP-M Strength Start: 05/18/18 09:11 Freq: Status: Active Protocol: Document 05/18/18 09:12 [facility] (Rec: 05/18/18 10:02 [facility] [id number]) Hip Strength Hip Manual Muscle Testing Right Flexion (L2) 4 Good Extension (S1) 4- Good- Abduction 4- Good- External Rotation 4 Good Internal Rotation 4 Good Left Flexion (L2) 4 Good Extension (S1) 4+ Good+ Abduction 4+ Good+ External Rotation 4 Good Internal Rotation 4+ Good+ Knee Strength Knee Manual Muscle Testing Right Flexion (S2) 5 Normal Extension (L3) 5 Normal Left Flexion (S2) 5 Normal Extension (L3) 5 Normal PT-OP-Q Treatments Start: 05/18/18 09:11 Freq: Status: Active Protocol: Document 06/07/18 11:32 SA (Rec: 06/07/18 11:43 SA [email or web address]) Therapeutic Exercises Supine Exercises SL slide outs with pelvic tilt Reps/Minutes 15 x each Comments focus on slow, controlled LE movement Pelvic Tilts Reps/Minutes 20x bridge Side bilateral Equipment Used Progressed to Red PT ball Reps/Minutes 15x Sidelying Exercises clamshells Resistance 2# Comments HEP; cues for core engage first; towel and pillows for comfort hip abd Resistance 2# Comments HEP; cues for core engage first; towel and pillows for comfort Sitting Exercises Piriformis stretch Reps/Minutes 2 x 20 each Manual Therapy Treatment Soft Tissue Mobilization Lumbar paraspinals and R sacral area Mobilization Type Myofascial Release Rolling Strumming Intensity/Depth Moderate Body Position Hooklying Comments Point tender piriformis IT band Body Location /proximally Mobilization Type Myofascial Release Sustained Pressure Body Position Hooklying Comments active DF/PF; R Used roller on ITB also Manual Techniques SI muscle energy technique Body Position supine 90/90 Reps/Duration 10 holds 5x Comments Pain free to assist with level pelvis. PT-OP-R Modalities Start: 05/18/18 09:11 Freq: Status: Active Protocol: Document 06/07/18 11:32 SA (Rec: 06/07/18 11:43 SA [email or web address]) Hot Pack/Cold Pack Treatment Hot Pack Location R ITB Patient Position Hooklying Patient Tolerance Good Comments At end of session PT-OP-T Assessment and Plan Start: 05/18/18 09:11 Freq: Status: Active Protocol: Document 06/07/18 11:32 SA (Rec: 06/07/18 11:43 SA [email or web address]) Physical Therapy Assessment Assessment Summary Assessment Pt with continued buttock and lateral R leg pain, using roller on ITB but irregularly. To attempt consistency with HEP and rolling and assess next visit. Physical Therapy Plan Next Visit Focus/Plan Next Note Type Treatment Note Next Visit Plan Progress lumbar stabilization as able and use of roller, d/c heel lift in shoe.
--- NOTE | 2018-06-30 07:55 | PT.OPDS ---
Current Diagnoses Scoliosis, unspecified (06/07/18) Spinal stenosis, lumbar region without neurogenic claudication (06/07/18) Provider Visit Care Team Role Provider Type Nelsy Pryor DO Primary Care Provider Physician Specialty: Family Practice Address: [address] [place] [address], [id number] Email: [email or web address] Payton DO Attending Provider Physician Specialty: Physiatry Pain Management Address: [address] [place] [address], [id number] Email: Visit Number Visit Number 11/11 Discharge Summary PT-OP-B Current Condition Start: 05/18/18 09:11 Freq: Status: Active Protocol: Document 05/18/18 09:12 ML (Rec: 05/18/18 12:02 ML [id number]) Current Condition History of Current Condition Current Complaints R leg pain/discomfort History of Current Condition Pt reports to PT with a diagnosis of a bulging disk, stenosis, and severe scoliosis that are significant factors in the pt's current pain. Pt's pain is due the impingement occurring from the pt's low back, where she indicates the origination from her R SI region. With PT, the patient will be able to improve her mobility, strength, and proper mechanics for her daily activities through neuromuscular re-education in order to eliminate pain that is elicited from her current diagnoses. Pt notes that the pain is 6-7/10 on average, and relieved with resting on her back and heat to about 4/10 pain. She also states that she uses an SI belt for times of activity and occasionally a knee brace on R as well. Pt notes that the pain is mostly noticed as soon as she stops activity. 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 but she has had high levels of pain and discomfort through these exercises. Pt states that she gets R leg pain when she is laying on either her L or R side, and finds relief on her back. Pt is able to reposition at night when she wakes from pain in either of those positions and returns to her back and can sleep again. Pt notes she moves in her sleep frequently but is getting better about sleeping on her back. Pt notes two abdominal surgeries and a signifcant fall about 10 years ago when she became unconscious and hit her head on the wall and fell hard to the ground. Pt notes feeling off on her R side when she walks. Her R leg pain also bothers her R knee at times. Pt notices the R leg pain throughout her entire thigh region, but states there's more tightness on the broad lateral surface. The pt inidicates the pain orginiating from her R SI region. 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 Prior Functional Status Baseline Function- ADL's Independent Baseline Function- Mobility Independent Baseline Function- Gait Antalgic PT-OP-C Subjective Start: 05/18/18 09:11 Freq: Status: Active Protocol: Document 06/07/18 11:32 SA (Rec: 06/07/18 11:43 SA [id number]) OP-PT Subjective Patient Comments Patient Comments Pt expressed frustration with continued symptoms in R buttock and ITB, although today is better than yesterday . Patient Reported Progress Same PT-OP-G Mobility & Gait Start: 05/18/18 09:11 Freq: Status: Active Protocol: Document 05/18/18 09:12 [facility] (Rec: 05/18/18 10:02 [facility] [id number]) OP Gait Assessment Comments Gait Comments Pt has lat shear of body to L and has dec RUE arm swing. Pt overall uses leg motions & min pelvic rotations to propel herself with dec use of trunk. PT-OP-J Posture/Palpation/Skin Start: 05/18/18 09:11 Freq: Status: Active Protocol: Document 05/18/18 09:12 [facility] (Rec: 05/18/18 10:02 [facility] [id number]) Posture Evaluation Kaley Postural Classification System Kaley Postural Classifications Posterior/Posterior PT-OP-K Range of Motion Start: 05/18/18 09:11 Freq: Status: Active Protocol: Document 05/18/18 09:12 [facility] (Rec: 05/18/18 10:02 [facility] [id number]) Lumbar Spine Range of Motion Lumbar Spine Active Testing Position Standing Rotation Left 44 Rotation Right 40 Comments Tape measure used for flex: 18 in to 22 in; ext 18 in to 16. 5 in; SB R 7 in- pain returning to standing on R side, L 6.5 in; rotation in degrees PT-OP-L Special Tests Start: 05/18/18 09:11 Freq: Status: Active Protocol: Document 05/18/18 09:12 [facility] (Rec: 05/18/18 10:02 [facility] [id number]) Special Tests Lumbar Spine Special Tests Slump Test Results R positive Straight Leg Raise Test Results R ~ 65 deg HS stretch; L ~75 deg HS stretch PT-OP-M Strength Start: 05/18/18 09:11 Freq: Status: Active Protocol: Document 05/18/18 09:12 [facility] (Rec: 05/18/18 10:02 [facility] [id number]) Hip Strength Hip Manual Muscle Testing Right Flexion (L2) 4 Good Extension (S1) 4- Good- Abduction 4- Good- External Rotation 4 Good Internal Rotation 4 Good Left Flexion (L2) 4 Good Extension (S1) 4+ Good+ Abduction 4+ Good+ External Rotation 4 Good Internal Rotation 4+ Good+ Knee Strength Knee Manual Muscle Testing Right Flexion (S2) 5 Normal Extension (L3) 5 Normal Left Flexion (S2) 5 Normal Extension (L3) 5 Normal PT-OP-T Assessment and Plan Start: 05/18/18 09:11 Freq: Status: Active Protocol: Document 06/30/18 07:54 [facility] (Rec: 06/30/18 07:55 [facility] [id number]) Physical Therapy Plan Discharge Physical Therapy Discharge Reasons Change in Medical Status Discharge Comments Pt had fall and fractured pelvis. Cancelled all appointments and pt waiting to follow up with ortho.
== END 2018-07-11 15:51 ==
LOC: PHYS 10:30
PROVIDERS: PCP Family Medicine; Visit Provider Physical Medicine & Rehabilitation
DX: M41.9 Scoliosis, unspecified (principal); M48.061 Spinal stenosis, lumbar region without neurogenic claudication
CPT/HCPCS: 97110; 97140; 97161; 97535

== ENCOUNTER 2018-06-12 10:52 | Emergency (ER) | payer MEDICARE, SELFPAY ==
[2018-06-12 11:00] VITALS: BP 147/80; PULSE 83; RESP 16; TEMP 36.6; O2SAT 100; BMI 21.9
--- NOTE | 2018-06-12 11:09 | DI.RAD.S_ITS ---
PROCEDURE: XR HIP W PEL IF DONE LT 2V INDICATIONS: fall yesterday can't walk TECHNIQUE: 2 views of the hip were acquired. COMPARISON: None. FINDINGS: Bones: There is a relatively nondisplaced fracture of the left superior pubic ramus adjacent to the pubic symphysis. A small linear lucency is noted in the right sacral alar region which may be artifactual but a fracture cannot be excluded. No definite femoral neck fracture identified. There is degenerative disc disease and facet arthropathy in the size lower lumbar spine. Soft tissues: No suspicious soft tissue calcifications or masses. IMPRESSION: 1. Left superior pubic ramus fracture at. Additional pelvic ring fractures cannot be excluded. Consider further evaluation with CT. Dictated by: Prashanth Rosa M.D. on 06/12/2018 at 11:39 Approved by: Prashanth Rosa M.D. on 06/12/2018 at 11:43
--- NOTE | 2018-06-12 11:35 | ED.LOWEXIN ---
HPI - Extremity Injury (Lower) General Chief Complaint: Extremity Injury, Lower Stated Complaint: Fall yesterday, pain groin area Time Seen by Provider: 06/12/18 11:04 Source: patient Mode of arrival: ambulatory Limitations: no limitations History of Present Illness HPI Narrative: Patient is a 73-year-old female presents with left hip pain. She is at [place] at the transition yesterday when she tripped and fell. She initially was ambulatory but as time went on pain got significantly worse and she is unable to weightbear. She has no knee pain no back pain, which she is having some left-sided groin pain. She denies numbness or tingling no head injury. MD complaint: hip injury Onset (ago): day(s) (1) Type of Injury: blunt Place: other Severity: moderate Relieving factors: nothing Exacerbating factors: weight bearing Context: fall, direct blow and walking Related Data Home Medications Medication Instructions Recorded Confirmed MULTIVITAMIN 1 cap PO Q DAY #0 12/29/11 05/04/18 Calcium/Vitamin D (#CALCIUM + D 1 tab PO BID #0 01/02/12 05/04/18 600 MG-200 IU) cholecalciferol (vitamin D3) 2,000 unit PO QDAY #0 07/31/16 05/04/18 [Vitamin D3] Previous Rx's Medication Instructions Recorded hydroxyzine pamoate 25 mg capsule See Label Instructions PO Q6-8H 02/18/18 PRN #60 cap gabapentin 300 mg capsule 300 mg PO TID #90 cap 03/24/18 simvastatin 40 mg tablet 40 mg PO HS #90 tab 05/19/18 levothyroxine 150 mcg tablet 150 mcg PO QAM #90 tab 05/23/18 sertraline 100 mg tablet 100 mg PO QDAY #90 tab 05/23/18 tramadol 50 mg PO Q6H PRN #14 tab 06/12/18 Allergies Allergy/AdvReac Type Severity Reaction Status Date / Time No Known Drug Allergies Allergy Verified 06/12/18 10:59 Review of Systems Review of Systems All systems reviewed & are unremarkable except as noted in HPI and below Constitutional Denies chills, Denies fever(s), Denies lethargy and Denies weakness Cardiovascular Denies chest pain, Denies irregular heart rhythm, Denies lightheadedness, Denies palpitations, Denies dyspnea, Denies dyspnea on exertion and Denies orthopnea Respiratory Denies cough, Denies dyspnea, Denies dyspnea on exertion and Denies wheezing Gastrointestinal Gastrointestinal: Denies abdominal pain, Denies change in bowel habits, Denies diarrhea, Denies nausea and Denies vomiting Musculoskeletal Reports as per HPI Integumentary/Breasts Denies pruritus, Denies erythema, Denies rash and Denies wounds Neurologic Denies weakness Endocrine Denies palpitations Allergic/Immunologic Denies wheezing [facility] Medical History Actinic keratosis (Chronic) Constipation (Chronic) Depression (Chronic) Fibromyalgia (Chronic) Hemorrhoids (Chronic) Hyperlipidemia (Chronic) Hypothyroidism (Chronic) Osteoporosis (Chronic) Surgical History Status post appendectomy (Resolved 1971) Status post delivery (Resolved 1970) Status post colonoscopy (Resolved 07/05/10) Status post hysterectomy with oophorectomy (Resolved 1995) Family History Father CVA (cerebral infarction) [place] (myocardial infarction) Hypertension Alcohol abuse Obesity Mother Osteoporosis, Onset Age: 94 Tobacco use Hip fracture Son No problems noted. Social History household members: spouse Smoking Status: Never smoker Exam Initial Vital Signs Initial Vital Signs: Vital Signs Temperature 98 F 06/12/18 11:00 Pulse Rate 83 06/12/18 11:00 Respiratory Rate 16 06/12/18 11:00 Blood Pressure 147/80 H 06/12/18 11:00 Pulse Oximetry 100 06/12/18 11:00 Const General: cooperative and healthy appearing Nutritional Appearance: average body habitus Orientation: alert, awake and oriented x3 HENMT Head: normocephalic and atraumatic Ears: external ears normal and TM's normal bilaterally Nose: external nose normal and No nasal discharge Face and sinus: sinuses nontender, face symmetric, no sinus tenderness and No dry mucous membranes Mouth: oral mucosae normal and moist mucous membranes Teeth and gingiva: dentition normal Throat: tonsils normal and uvula midline Course Orders Ordered: ED Orders 06/12/18 11:09 XR hip w pel if done LT 2V Stat 06/12/18 11:54 CT pelvis wo con Stat 06/12/18 13:00 Consult to Physical Therapy Evaluate & Treat Discontinued Medications Morphine Sulfate (Morphine) 4 mg SUBCUT NOW ONE Stop: 06/12/18 11:55 Last Admin: 06/12/18 11:59 Dose: 4 mg Vital Signs - 8 hr 06/12/18 11:00 06/12/18 13:42 Temperature 98 F Pulse Rate 83 80 Respiratory Rate 16 14 Blood Pressure 147/80 H Blood Pressure [Right Arm] 122/78 Pulse Oximetry 100 99 MDM - Extremity Injury (Lower) Imaging Data Bright hip x-ray: Radiologist's impression: Patient: Naomi Ramirez [facility]#: [id number] : [id number]:[id number] Age/Sex: 73 / FDate of Service: 06/12/18 Loc: ED Accession Number: [id number] Procedure: XR hip w pel if done LT 2V Ordering Provider: Ashley Watts D.O. PROCEDURE: XR HIP W PEL IF DONE LT 2V INDICATIONS: fall yesterday can't walk TECHNIQUE: 2 views of the hip were acquired. COMPARISON: None. FINDINGS: Bones: There is a relatively nondisplaced fracture of the left superior pubic ramus adjacent to the pubic symphysis. A small linear lucency is noted in the right sacral alar region which may be artifactual but a fracture cannot be excluded. No definite femoral neck fracture identified. There is degenerative disc disease and facet arthropathy in the size lower lumbar spine. Soft tissues: No suspicious soft tissue calcifications or masses. IMPRESSION: 1. Left superior pubic ramus fracture at. Additional pelvic ring fractures cannot be excluded. Consider further evaluation with CT. Dictated by: Prashanth Rosa M.D. on 06/12/2018 at 11:[address]: Radiologist's impression: PROCEDURE: CT PEL WO CON INDICATIONS: left hip pain and fall, pubic rami fracture TECHNIQUE: Noncontrast 3 mm axial sections acquired through the bony pelvis, with coronal and sagittal reformatting. COMPARISON: [facility], XR HIP W PEL IF DONE LT 2V, 06/12/2018, 11:18. FINDINGS: Image quality: Excellent. Bones: There is a mildly displaced fracture of the left superior pubic ramus adjacent to the pubic symphysis. In addition, there is a suspected right the parasymphyseal fracture of the right superior ramus. There is a slightly impacted fracture of the left superior acetabulum at its junction with the superior pubic ramus. The visualized proximal femora appear intact. There is mild grade 1 anterolisthesis at the lumbosacral junction. Mild degenerative disc disease and moderate facet arthropathy are noted in the visualized lower lumbar spine. Soft tissues: No discrete hematoma collections. No free fluid within the visualized pelvis. The visualized musculature demonstrates preserved bulk. Colonic diverticulosis is demonstrated in the pelvis without acute diverticulitis. IMPRESSION: 1. Bilateral pubic rami fractures along the symphysis as well as a slightly impacted fracture of the left superior ramus at its junction with the acetabulum. Dictated by: Prashanth Rosa M.D. on 06/12/2018 at 12:32 Approved by: Prashanth Rosa M.D. on 06/12/2018 at 12:39 [facility] Narrative Medical decision making narrative: I called and spoke with Dr. Hines who was reviewed the CT and x-ray. He recommends weight-bearing as tolerated. May follow up in outpatient if needed however no surgery indicated at this time will likely heal with conservative measures only. Patient seen evaluated by physical therapy. Patient is given walker in the ED. She feels ready and able to go home. Discharge Plan Departure Patient Disposition: Home Clinical Impression: Bilateral fracture of pubic rami Discharge Date/Time: 06/12/18 13:45 Interventions: ED Discharge Assessment Last Done: 06/12/18 13:44 Instructions: Pelvic Fracture Activity Restrictions/Additional Instructions: *You have been diagnosed with a bilateral superior pubic rami fracture *What to do: Weight bear as tolerated. Recommend using a walker as needed while this heals. *Continue to take medications as directed Tramadol 1-2 tablets every 6-8 hours if needed for severe pain Tylenol 650 mg every 4-6 hours if needed for mild pain do not exceed more than 3 g in 1 day *Follow up with your primary care provider in 2-3 days, you may follow up with Orthopedics needed-call next week to schedule appointment at this time no surgery indicated *Return to ER if you should have numbness, tingling, weakness, uncontrolled pain or any new, worsening or concerning symptoms CONTROLLED SUBSTANCE DISCHARGE (Narcotoic/benzodiazepine/Flexeril/Phenergan) 1. You have been prescribed narcotic medications, you're specifically does not have extra Tylenol and 2. Please understand that we cannot provide further refills of narcotics, benzodiazepines or controlled substances through the ED and her pain management will need to be through your provider. 3. While on these medications you cannot drive or operate heavy machinery. 4. You cannot sign legal documents or perform any duties such as this. 5. As long as you're taking opiate pain medications he should also be taking a stool softener such as Colace, Dulcolax, MiraLAX or prune juice, to help avoid constipation. Prescriptions: New tramadol 50 mg tablet 50 mg PO Q6H PRN (Reason: pain) Qty: 14 RF: 0 No Action MULTIVITAMIN 1 cap PO Q DAY Qty: 0 RF: 0 Calcium/Vitamin D (#CALCIUM + D 600 MG-200 IU) 1 tab PO BID Qty: 0 RF: 0 cholecalciferol (vitamin D3) [Vitamin D3] 2,000 UNIT capsule 2,000 unit PO QDAY Qty: 0 RF: 0 simvastatin 40 mg tablet 40 mg PO HS Qty: 90 RF: 3 levothyroxine [Synthroid] 150 mcg tablet 150 mcg PO QAM Qty: 90 RF: 1 sertraline 100 mg tablet 100 mg PO QDAY Qty: 90 RF: 3 hydroxyzine pamoate 25 mg capsule See Label Instructions PO Q6-8H PRN (Reason: itching) Qty: 60 RF: 0 gabapentin 300 mg capsule 300 mg PO TID Qty: 90 RF: 2 Referrals: [facility] [Provider Group] Nelsy Pryor DO [Primary Care Provider] -
--- NOTE | 2018-06-12 11:54 | DI.CT.S_ITS ---
PROCEDURE: CT PEL WO CON INDICATIONS: left hip pain and fall, pubic rami fracture TECHNIQUE: Noncontrast 3 mm axial sections acquired through the bony pelvis, with coronal and sagittal reformatting. COMPARISON: [facility], CR, XR HIP W PEL IF DONE LT 2V, 06/12/2018, 11:18. FINDINGS: Image quality: Excellent. Bones: There is a mildly displaced fracture of the left superior pubic ramus adjacent to the pubic symphysis. In addition, there is a suspected right the parasymphyseal fracture of the right superior ramus. There is a slightly impacted fracture of the left superior acetabulum at its junction with the superior pubic ramus. The visualized proximal femora appear intact. There is mild grade 1 anterolisthesis at the lumbosacral junction. Mild degenerative disc disease and moderate facet arthropathy are noted in the visualized lower lumbar spine. Soft tissues: No discrete hematoma collections. No free fluid within the visualized pelvis. The visualized musculature demonstrates preserved bulk. Colonic diverticulosis is demonstrated in the pelvis without acute diverticulitis. IMPRESSION: 1. Bilateral pubic rami fractures along the symphysis as well as a slightly impacted fracture of the left superior ramus at its junction with the acetabulum. Dictated by: Prashanth Rosa M.D. on 06/12/2018 at 12:32 Approved by: Prashanth Rosa M.D. on 06/12/2018 at 12:39
[2018-06-12] MEDS: MORPHINE 4 MG/ML INJ SUBCUT (11:59)
--- NOTE | 2018-06-12 13:21 | PC.NURSE ---
PT here to work with pt and to use of walker. Walker dispensed from ED
--- NOTE | 2018-06-12 13:41 | PT.IIE ---
Surgical History (Last Reviewed 06/12/18 @ 11:38 by Ashley Watts DO) Status post appendectomy (Resolved 1971) Status post delivery (Resolved 1970) Status post colonoscopy (Resolved 07/05/10) Status post hysterectomy with oophorectomy (Resolved 1995) Medical History (Last Reviewed 06/12/18 @ 11:38 by Ashley Watts DO) Actinic keratosis (Chronic) Constipation (Chronic) Depression (Chronic) Fibromyalgia (Chronic) Hemorrhoids (Chronic) Hyperlipidemia (Chronic) Hypothyroidism (Chronic) Osteoporosis (Chronic) Physical Therapy Inpatient Evaluation/Re-Eval M1 PT/OT-IP Prior Functional Status Start: 06/12/18 13:41 Freq: Status: Active Protocol: Document 06/12/18 13:41 RCC (Rec: 06/12/18 13:50 [facility] [id number]) Medical Review Prior Functional Status Medical History Reviewed Yes Mobility and Gait indep. gait without AD Activities of Daily Living and IADL's indep. I/ADLs Social History Household Members spouse Living Arrangements House Number of Floors (Floors) Two Floors Number of Stairs To Enter/Railing? 2 SE rail on R ascending; can stay on main level if needed intially Home Environment Standard Height Toilet Walk in Shower Additional Social History Comment Imaging found bilateral pubic rami fx along with symphysis and slightly impacted fx of the L superior ramus at its junction with acetabulum. M2 PT-IP Current Condition Start: 06/12/18 13:41 Freq: Status: Active Protocol: Document 06/12/18 13:41 RCC (Rec: 06/12/18 13:50 [facility] [id number]) Physical Therapy Current Condition Current Condition Evaluation Date 06/12/18 Treatment Diagnosis GLF, pevlic fxs, impaired gait Weight Bearing Status Weight Bearing Status Weight Bear as Tolerated M3 PT-IP Subjective Start: 06/12/18 13:41 Freq: Status: Active Protocol: Document 06/12/18 13:41 RCC (Rec: 06/12/18 13:50 [facility] [id number]) Subjective Physical Therapy Visit Type Type Initial Evaluation Visit Start Time 13:22 Visit Stop Time 13:43 Total Visit Minutes 21 Notes spouse present during session Number of [employer] Visits 0 Physical Therapy Visit Comments Patient Comments pt wanting to go home today, notes LLE pain > R. Patient Goals go home Therapy Pain Assessment Location Left Groin Pain Behaviors Facial Grimacing M4 PT-IP Mobility and Gait Start: 06/12/18 13:41 Freq: Status: Active Protocol: Document 06/12/18 13:41 [facility] (Rec: 06/12/18 13:50 [facility] [id number]) Bed Transfer Assessment Specific Evaluation Sit to Stand Bed Transfer Ability Standby Assistance Stand to Sit Bed Transfer Ability Standby Assistance Comments Factors Limiting Bed Transfer Pain Gait Assessment Gait Gait Assistance Required: Standby Assistance Distance (Feet) 25 Assistive Devices Assistive Device Gait Belt Front Wheeled Walker Gait Deviations General Gait Pattern Antalgic Decreased Stride Length Decreased Feet Clearance Step-to Gait Factors Limiting Gait Function Factors Limiting Gait Function Decreased Activity Tolerance Decreased Strength Pain Comments Gait Comments VC for sequencing, demonstrated don/doff gait belt to pt and S.O. Stair Climbing Assessment Comments Stair Climbing Comments pt and spouse with no concerns with stairs, did not want to perform this session; educated on sequencing. PT-Balance Assessment Sitting Balance and Reactions Static Sitting Balance Ability Normal Dynamic Sitting Balance Ability Normal Standing Balance and Reactions Static Standing Balance Ability Good Dynamic Standing Balance Ability Good Device Used FWW M5 PT-IP Objective Assessments Start: 06/12/18 13:41 Freq: Status: Active Protocol: Document 06/12/18 13:41 [facility] (Rec: 06/12/18 13:50 [facility] [id number]) Orientation Orientation/Cognition Level of Alertness Alert Strength Lower Extremity Strength Assessment Bilaterally Impaired Comments Strength Comments limited by pain Coordination Assessment Gross Coordination Gross Coordination WNL Sensation Assessment Sensation Gross Sensation WNL Muscle Tone Muscle Tone WNL Yes M6 PT-IP Treatment Start: 06/12/18 13:41 Freq: Status: Active Protocol: Document 06/12/18 13:41 [facility] (Rec: 06/12/18 13:50 [facility] [id number]) Physical Therapy Treatment Education Education Provided Weight Bearing Status Safety M7 PT-IP Assessment and Plan Start: 06/12/18 13:41 Freq: Status: Active Protocol: Document 06/12/18 13:41 [facility] (Rec: 06/12/18 13:50 [facility] [id number]) PT Summary Assessment and Plan Potential Rehabilitation Potential Good Status of Condition at Evaluation Evolving Summary Impairments Pain Strength Balance Gait Activity Tolerance Progress Towards Goals Safe For Discharge Assessment Summary Pt and spouse both comfortable with pt returning home at this point. She is able to use a FWW with cuing and SBA. FWW was adjusted to pt's height, RN to have pt fill out DME paperwork. Pt deferred stairs this date, spouse verbalized that they would be able to help her do them and did them yesterday and today to get back from [place] and then to ER. Recommend pt follow up with PCP and potential OP PT when medically ready. Pt and spouse were comfortable with d /c home today. Frequency of Treatment Frequency Of Treatment Discharge Recommendations To Nursing Amount of Assist Needed Standby Assistance Discharge Recommendations PT Discharge Recommendations Home with Assistance Outpatient PT Equipment Needed for Home Before FWW Discharge
[2018-06-12 13:42] VITALS: BP 122/78; PULSE 80; RESP 14; O2SAT 99
== END 2018-06-12 13:45 | disposition home or self-care (01) ==
PROVIDERS: Emergency Provider Emergency Medicine; PCP Family Medicine
DX: S32.591A Other specified fracture of right pubis, initial encounter for closed fracture (principal); S32.592A Other specified fracture of left pubis, initial encounter for closed fracture; W01.0XXA Fall on same level from slipping, tripping and stumbling without subsequent striking against object, initial encounter
CPT/HCPCS: 72192; 73502; 97162; 99283; 99284; J2270

== ENCOUNTER → 2018-07-08 16:08 | Outpatient (CLI) | payer MEDICARE, SELFPAY ==
--- NOTE | 2018-07-08 16:10 | DI.RAD.S_ITS ---
PROCEDURE: XR PELVIS 1-2V INDICATIONS: Pelvic fracture TECHNIQUE: Single view(s) of the pelvis acquired. COMPARISON: [facility], CT, CT PEL WO CON, 06/12/2018, 12:05. FINDINGS: Bones: Subtle fractures involving bilateral pubic rami near symphysis pubis is again seen. No gross new fracture or dislocation. No suspicious bony lesions. Right worse than left bilateral hip joint osteophytic changes are seen. No evidence of avascular necrosis. Osteoarthritic changes also seen involving bilateral sacroiliac joints and symphysis pubis. Soft tissues: Visualized bowel gas pattern is normal. No suspicious soft tissue calcifications. IMPRESSION: Osteoarthritis throughout the pelvis. Minimally displaced fracture involving bilateral pubic rami and evaluated on previous CT of pelvis study. No new fracture or dislocation. Dictated by: Hans Avila M.D. on 07/08/2018 at 16:43 Approved by: Hans Avila M.D. on 07/08/2018 at 16:45
== END ==
PROVIDERS: PCP Family Medicine; Visit Provider Family Medicine
DX: S32.502A Unspecified fracture of left pubis, initial encounter for closed fracture (principal); S32.501A Unspecified fracture of right pubis, initial encounter for closed fracture; M47.818 Spondylosis without myelopathy or radiculopathy, sacral and sacrococcygeal region; M16.0 Bilateral primary osteoarthritis of hip
CPT/HCPCS: 72170

== ENCOUNTER → 2018-09-20 10:39 | Outpatient (CLI) | payer MEDICARE, SELFPAY | PROVIDERS: PCP Family Medicine; Visit Provider Physician Assistant | DX: R68.89 Other general symptoms and signs (principal) | CPT/HCPCS: 87400 ==

== ENCOUNTER → 2018-10-07 11:22 | Outpatient (CLI) | payer MEDICARE, SELFPAY ==
[2018-10-07 12:05] LABS: Add Manual Diff / Slide Review NO; Basophils Absolute Auto 0 /uL (0-100); Basophils Percent Auto 0.6 % (0-2); Eosinophils Absolute Auto 100 /uL (0-450); Eosinophils Percent Auto 1.6 % (2-4); Hematocrit 44.6 % (36-46); Hemoglobin 14.8 g/dL (12.0-16.0); Lymphocytes Absolute Auto 1800 /uL (1100-4500); Lymphocytes Percent Auto 24.8 % (25-40); Mean Corpuscular HGB Conc 33.2 % (30-36); Mean Corpuscular Hemoglobin 29.2 PG (26-34); Monocytes Absolute Auto 600 /uL (0-900); Monocytes Percent Auto 7.8 % (3-14); Neutrophils Absolute Auto 4600 /uL (1500-7000); Neutrophils Percent Auto 65.2 % (50-75); Platelet Count 292 X10^3/uL (150-400); Red Blood Cell Count 5.06 X10^6/uL (4.0-5.2); Red Cell Distribution Width 13.6 % (11.6-14.8); White Blood Cell Count 7.1 X10^3/uL (4.5-11.0)
[2018-10-07 12:16] LABS: Alanine Aminotransferase 20 IU/L (9-52); Albumin 4.7 g/dL (3.5-5.0); Albumin Globulin Ratio 1.6 (1.0-2.8); Alkaline Phosphatase 120 U/L (38-126); Aspartate Aminotransferase 20 IU/L (14-36); BUN Creatinine Ratio 22.2 (6-22); Bilirubin Total 0.6 mg/dL (0.2-1.3); Blood Urea Nitrogen 20 mg/dL (7-17); Carbon Dioxide 27 mmol/L (22-32); Chloride 104 mmol/L (98-107); Estimated Glomerular Filt Rate > 60.0 mL/min (>60); Glucose 95 mg/dL (80-110); HEMOLYSIS < 15 (0-50); Potassium 4.5 mmol/L (3.4-5.1); Sodium 142 mmol/L (137-145); Total Protein 7.7 g/dL (6.3-8.2)
[2018-10-07 13:02] LABS: Vitamin B12 426 pg/mL (239-931)
== END ==
PROVIDERS: PCP Family Medicine; Visit Provider Hospitalist
DX: R53.83 Other fatigue (principal); R11.0 Nausea
CPT/HCPCS: 36415; 80053; 82607; 85025

== ENCOUNTER → 2019-05-04 09:22 | Outpatient (CLI) | payer MEDICARE, SELFPAY ==
[2019-05-04 11:50] LABS: Alanine Aminotransferase 16 IU/L (9-52); Albumin 4.6 g/dL (3.5-5.0); Albumin Globulin Ratio 1.6 (1.0-2.8); Alkaline Phosphatase 99 U/L (38-126); Aspartate Aminotransferase 24 IU/L (14-36); Bilirubin Total 0.6 mg/dL (0.2-1.3); Blood Urea Nitrogen 21 mg/dL (7-17); Calcium 9.5 mg/dL (8.4-10.2); Carbon Dioxide 29 mmol/L (22-32); Chloride 103 mmol/L (98-107); Cholesterol 267 mg/dL (140-199); Estimated Glomerular Filt Rate 53.9 mL/min (>60); Globulin 2.9 g/dL (1.7-4.1); Glucose 105 mg/dL (80-110); HDL Cholesterol 97 mg/dL (40-60); HEMOLYSIS < 15 (0-50); LDL Cholesterol Calculated 142 mg/dL (<100); Potassium 4.1 mmol/L (3.4-5.1); Sodium 141 mmol/L (137-145); Total Protein 7.5 g/dL (6.3-8.2); Triglycerides 138 mg/dL (35-150)
[2019-05-04 12:01] LABS: Free T3, Triiodothyronine Free 3.65 pg/mL (2.77-5.27); Free T4, Direct Thyroxine 1.16 ng/dL (0.78-2.19)
[2019-05-04 12:03] LABS: Vitamin D 25 Hydroxy (D3) 34.1 ng/mL (30.0-100.0)
[2019-05-04 12:14] LABS: Thyroid Stimulating Hormone 0.33 uIU/mL (0.47-4.68)
[2019-05-06 17:23] LABS: Thyroid Peroxidase Antibodies 1 IU/mL (< 9)
[2019-05-09 10:55] LABS: Triiodothyronine T3 Reverse 24 ng/dL (8-25)
== END ==
PROVIDERS: PCP Family Medicine; Visit Provider Family Medicine
DX: E78.5 Hyperlipidemia, unspecified (principal); R73.01 Impaired fasting glucose; E03.9 Hypothyroidism, unspecified; M81.0 Age-related osteoporosis without current pathological fracture
CPT/HCPCS: 36415; 80053; 80061; 82306; 84439; 84443; 84481; 84482; 86376

== ENCOUNTER → 2019-09-04 08:03 | Outpatient (CLI) | payer MEDICARE, SELFPAY ==
[2019-09-04 09:41] LABS: Free T3, Triiodothyronine Free 2.88 pg/mL (2.77-5.27)
[2019-09-04 09:43] LABS: Vitamin D 25 Hydroxy (D3) 40.4 ng/mL (30.0-100.0)
[2019-09-04 09:55] LABS: Thyroid Stimulating Hormone 0.65 uIU/mL (0.47-4.68)
== END ==
PROVIDERS: PCP Family Medicine; Referring Provider Family Medicine; Visit Provider Family Medicine
DX: E03.9 Hypothyroidism, unspecified (principal); M81.8 Other osteoporosis without current pathological fracture
CPT/HCPCS: 36415; 82306; 84439; 84443; 84481

== ENCOUNTER → 2020-01-25 14:36 | Outpatient (CLI) | payer MEDICARE, SELFPAY | PROVIDERS: PCP Family Medicine; Referring Provider Family Medicine; Visit Provider Family Medicine | DX: M81.0 Age-related osteoporosis without current pathological fracture (principal); Z78.0 Asymptomatic menopausal state; E07.9 Disorder of thyroid, unspecified; Z90.722 Acquired absence of ovaries, bilateral; Z82.62 Family history of osteoporosis; Z87.891 Personal history of nicotine dependence | CPT/HCPCS: 77080 ==

== ENCOUNTER → 2020-02-06 11:29 | Outpatient (CLI) | payer MEDICARE, SELFPAY ==
--- NOTE | 2020-02-06 | DI.MG.S_ITS ---
BILATERAL DIGITAL SCREENING MAMMOGRAM 3D/2D WITH CAD: 02/06/2020 CLINICAL: Routine screening. Comparison is made to exams dated: 11/25/2017 mammogram, 11/10/2016 mammogram, 10/17/2015 mammogram, 10/04/2014 mammogram, 09/19/2013 mammogram, and 09/08/2012 mammogram - [facility]. The tissue of both breasts is heterogeneously dense. This may lower the sensitivity of mammography. Current study was also evaluated with a Computer Aided Detection (CAD) system. No significant masses, calcifications, or other findings are seen in either breast. There has been no significant interval change. IMPRESSION: NEGATIVE There is no mammographic evidence of malignancy. A 1 year screening mammogram is recommended. This exam was interpreted at Station ID: [id number]. NOTE: For mammograms, a report in lay terms will be sent to the patient. Approximately 15% of breast malignancies will not be visualized mammographically. In the management of a palpable breast mass, a negative mammogram must not discourage biopsy of a clinically suspicious lesion. Electronically Signed By: Juventino kaye/ashley:02/06/2020 13:49:06 letter sent: Normal Exam ACR BI-RADS Category 1: Negative [id number]
== END ==
PROVIDERS: PCP Family Medicine; Referring Provider Family Medicine; Visit Provider Family Medicine
DX: Z12.31 Encounter for screening mammogram for malignant neoplasm of breast (principal)
CPT/HCPCS: 77063; 77067

== ENCOUNTER → 2020-02-28 14:09 | Outpatient (CLI) | payer MEDICARE, SELFPAY ==
--- NOTE | 2020-02-28 | DI.US.S_ITS ---
PROCEDURE: US PERIPH VENOUS LOW EXTREM RT INDICATIONS: RT LEG SWELLING TECHNIQUE: Real-time imaging, as well as color and pulse Doppler interrogation, were performed of the lower extremity deep veins from the inguinal ligament to the popliteal fossa. COMPARISON: None. FINDINGS: The common femoral, femoral and popliteal veins are normally compressible, and free of intraluminal thrombus. Color and pulse Doppler demonstrate normal phasic intraluminal flow. There is normal augmentation response to distal compression maneuver. A Del Toro's cyst is seen that measures 4.4 x 0.9 x 3.2 centimeters. IMPRESSION: Negative for deep venous thrombosis. Dictated by: Dale Munoz M.D. on 02/28/2020 at 14:02 Approved by: Dale Munoz M.D. on 02/28/2020 at 14:03
== END ==
PROVIDERS: PCP Family Medicine; Referring Provider Family Medicine; Visit Provider Family Medicine
DX: M79.89 Other specified soft tissue disorders (principal); M71.21 Synovial cyst of popliteal space [Baker], right knee
CPT/HCPCS: 93971

== ENCOUNTER → 2020-06-17 10:18 | Outpatient (CLI) | payer MEDICARE, SELFPAY ==
[2020-06-17 10:30] LABS: Bacteria Urine None Seen; RBC Urine None Seen (0-5/HPF)
[2020-06-17 11:29] LABS: Squamous Epithelial Cell Urine 5-10 /HPF (0-5/HPF); WBC Urine 5-10/HPF (0-5/HPF)
[2020-06-17 11:30] LABS: Culture Indicated Urine Cult Not Indicated; Mucus Urine 2+ (Negative)
[2020-06-17 12:27] LABS: Alanine Aminotransferase 19 IU/L (<35); Albumin 4.7 g/dL (3.5-5.0); Albumin Globulin Ratio 1.7 (1.0-2.8); Alkaline Phosphatase 83 U/L (38-126); Aspartate Aminotransferase 23 IU/L (14-36); Bilirubin Total 0.6 mg/dL (0.2-1.3); Blood Urea Nitrogen 24 mg/dL (7-17); Calcium 10.1 mg/dL (8.4-10.2); Carbon Dioxide 30 mmol/L (22-32); Chloride 104 mmol/L (98-107); Cholesterol 254 mg/dL (140-199); Estimated Glomerular Filt Rate > 60.0 mL/min (>60); Globulin 2.8 g/dL (1.7-4.1); Glucose 110 mg/dL (80-110); HDL Cholesterol 93 mg/dL (40-60); HEMOLYSIS < 15 (0-50); LDL Cholesterol Calculated 130 mg/dL (<100); Potassium 5.1 mmol/L (3.4-5.1); Sodium 141 mmol/L (137-145); Total Protein 7.5 g/dL (6.3-8.2); Triglycerides 155 mg/dL (35-150)
[2020-06-17 12:48] LABS: TSH w/ Reflex to FT4 0.09 uIU/mL (0.47-4.68)
[2020-06-17 13:34] LABS: Free T4, Direct Thyroxine 1.96 ng/dL (0.78-2.19)
[2020-06-17 16:51] LABS: Calcium Urine Random 19.4 mg/dL
== END ==
PROVIDERS: PCP Family Medicine; Referring Provider Family Medicine; Visit Provider Family Medicine
DX: E03.9 Hypothyroidism, unspecified (principal); R73.01 Impaired fasting glucose; E78.5 Hyperlipidemia, unspecified; M81.0 Age-related osteoporosis without current pathological fracture; M81.8 Other osteoporosis without current pathological fracture; Z87.39 Personal history of other diseases of the musculoskeletal system and connective tissue
CPT/HCPCS: 36415; 80053; 80061; 81015; 82306; 82340; 84439; 84443

== ENCOUNTER → 2020-06-20 15:58 | Outpatient (CLI) | payer MEDICARE, SELFPAY ==
[2020-06-22 00:31] LABS: Creatinine Urine Random 207.7 mg/dL
== END ==
PROVIDERS: PCP Family Medicine; Visit Provider Family Medicine
DX: M81.8 Other osteoporosis without current pathological fracture (principal); Z87.39 Personal history of other diseases of the musculoskeletal system and connective tissue
CPT/HCPCS: 82570

== ENCOUNTER → 2020-10-10 08:47 | Outpatient (CLI) | payer MEDICARE, SELFPAY ==
[2020-10-10] MEDS: COVID-19 VACC, Ad26(JANSSEN)/PF 0.5 ML IM (08:54)
== END ==
PROVIDERS: PCP Family Medicine; Visit Provider Internal Medicine
DX: Z23 Encounter for immunization (principal)
CPT/HCPCS: 0031A; 91303

== ENCOUNTER → 2020-10-11 09:07 | Outpatient (CLI) | payer MEDICARE, SELFPAY ==
[2020-10-11 10:21] LABS: Free T3, Triiodothyronine Free 3.13 pg/mL (2.77-5.27); Free T4, Direct Thyroxine 1.08 ng/dL (0.78-2.19)
== END ==
PROVIDERS: PCP Family Medicine; Referring Provider Physician Assistant; Visit Provider Physician Assistant
DX: Z01.812 Encounter for preprocedural laboratory examination (principal); E03.9 Hypothyroidism, unspecified
CPT/HCPCS: 36415; 84439; 84443; 84481

== ENCOUNTER → 2021-09-05 15:19 | Outpatient (CLI) | payer MEDICARE, SELFPAY ==
[2021-09-05 16:03] LABS: Add Manual Diff / Slide Review NO; Basophils Absolute Auto 0 /uL (0-100); Basophils Percent Auto 0.7 % (0-2); Eosinophils Absolute Auto 100 /uL (0-450); Eosinophils Percent Auto 1.1 % (2-4); Hematocrit 42.7 % (36-46); Hemoglobin 14.3 g/dL (12.0-16.0); Lymphocytes Absolute Auto 1300 /uL (1100-4500); Lymphocytes Percent Auto 24.5 % (25-40); Mean Corpuscular HGB Conc 33.5 % (30-36); Mean Corpuscular Volume 92.6 fL (80-100); Monocytes Absolute Auto 400 /uL (0-900); Monocytes Percent Auto 7.1 % (3-14); Neutrophils Absolute Auto 3600 /uL (1500-7000); Neutrophils Percent Auto 66.6 % (50-75); Platelet Count 175 X10^3/uL (150-400); Red Blood Cell Count 4.61 X10^6/uL (4.0-5.2); Red Cell Distribution Width 13.8 % (11.6-14.8); White Blood Cell Count 5.3 X10^3/uL (4.5-11.0)
[2021-09-05 16:23] LABS: Erythrocyte Sedimentation Rate 5 MM/HR (0-20)
[2021-09-05 16:35] LABS: Alanine Aminotransferase 29 IU/L (<35); Albumin 4.8 g/dL (3.5-5.0); Albumin Globulin Ratio 1.7 (1.0-2.8); Alkaline Phosphatase 88 U/L (38-126); Aspartate Aminotransferase 32 IU/L (14-36); BUN Creatinine Ratio 20.7 (6-22); Bilirubin Total 0.7 mg/dL (0.2-1.3); Blood Urea Nitrogen 17 mg/dL (7-17); C-Reactive Protein Quant < 0.5 mg/dL (<1.0); Calcium 9.7 mg/dL (8.4-10.2); Carbon Dioxide 27 mmol/L (22-32); Chloride 105 mmol/L (98-107); Estimated Glomerular Filt Rate > 60.0 mL/min (>60); Globulin 2.9 g/dL (1.7-4.1); Glucose 94 mg/dL (80-110); HEMOLYSIS < 15 (0-50); Potassium 4.2 mmol/L (3.4-5.1); Sodium 138 mmol/L (137-145); Total Protein 7.7 g/dL (6.3-8.2)
[2021-09-05 16:49] LABS: Free T3, Triiodothyronine Free 3.18 pg/mL (2.77-5.27); Free T4, Direct Thyroxine 1.34 ng/dL (0.78-2.19)
[2021-09-05 17:02] LABS: Thyroid Stimulating Hormone 0.114 uIU/mL (0.47-4.68)
[2021-09-08 14:38] LABS: ANA Screen, IFA Negative (.)
== END ==
PROVIDERS: PCP Family Medicine; Referring Provider Family Medicine; Visit Provider Family Medicine
DX: E03.9 Hypothyroidism, unspecified (principal); K21.9 Gastro-esophageal reflux disease without esophagitis; M25.50 Pain in unspecified joint; M81.0 Age-related osteoporosis without current pathological fracture; R21 Rash and other nonspecific skin eruption
CPT/HCPCS: 36415; 80053; 84439; 84443; 84481; 85025; 85651; 86038; 86140

== ENCOUNTER → 2022-04-10 10:34 | Outpatient (CLI) | payer MEDICARE, SELFPAY ==
--- NOTE | 2022-04-10 10:36 | DI.MG.S_ITS ---
BILATERAL DIGITAL SCREENING MAMMOGRAM 3D/2D WITH CAD: 04/10/2022 CLINICAL: Routine screening. Comparison is made to exams dated: 02/06/2020 mammogram, 11/25/2017 mammogram, and 11/10/2016 mammogram - [facility]. Both breasts are heterogeneously dense, which may obscure small masses (category c / 51-75% glandular tissue). Current study was also evaluated with a Computer Aided Detection (CAD) system. No significant masses, calcifications, or other findings are seen in either breast. There has been no significant interval change. IMPRESSION: NEGATIVE There is no mammographic evidence of malignancy. A 1 year screening mammogram is recommended. Based on the Tyrer Cuzick model (a risk assessment model) the patient's lifetime risk is 2.8% and her 10 year risk is 0.0%. According to the ACR, ACS, and NCCN guidelines, an annual breast MRI exam along with mammogram is recommended if the patient's lifetime risk is 20% or greater. This exam was interpreted at Station ID: [id number]. NOTE: For mammograms, a report in lay terms will be sent to the patient. Approximately 15% of breast malignancies will not be visualized mammographically. In the management of a palpable breast mass, a negative mammogram must not discourage biopsy of a clinically suspicious lesion. Electronically Signed By: Del rock/ashley:04/10/2022 15:16:13 letter sent: Normal Exam ACR BI-RADS Category 1: Negative [id number]
== END ==
PROVIDERS: PCP Family Medicine; Referring Provider Family Medicine; Visit Provider Family Medicine
DX: Z12.31 Encounter for screening mammogram for malignant neoplasm of breast (principal); M81.0 Age-related osteoporosis without current pathological fracture; Z78.0 Asymptomatic menopausal state; Z90.710 Acquired absence of both cervix and uterus
CPT/HCPCS: 77063; 77067; 77080

== ENCOUNTER → 2022-05-15 09:29 | Outpatient (CLI) | payer MEDICARE, SELFPAY ==
[2022-05-15 12:01] LABS: Blood Urea Nitrogen 19 mg/dL (7-17); Calcium 9.4 mg/dL (8.4-10.2); Carbon Dioxide 26 mmol/L (22-32); Chloride 103 mmol/L (98-107); Cholesterol 224 mg/dL (140-199); Estimated Glomerular Filt Rate > 60 mL/min (>60); Glucose 102 mg/dL (80-110); HDL Cholesterol 83 mg/dL (40-60); HEMOLYSIS < 15 (0-50); LDL Cholesterol Calculated 119 mg/dL (<100); Sodium 142 mmol/L (137-145); Triglycerides 112 mg/dL (35-150)
[2022-05-15 12:05] LABS: Free T3, Triiodothyronine Free 2.97 pg/mL (2.77-5.27); Free T4, Direct Thyroxine 1.22 ng/dL (0.78-2.19)
[2022-05-15 12:19] LABS: TSH w/ Reflex to FT4 0.17 uIU/mL (0.47-4.68)
== END ==
PROVIDERS: PCP Family Medicine; Referring Provider Family Medicine; Visit Provider Family Medicine
DX: E03.9 Hypothyroidism, unspecified (principal); E78.5 Hyperlipidemia, unspecified; M79.7 Fibromyalgia; R73.01 Impaired fasting glucose; Z87.39 Personal history of other diseases of the musculoskeletal system and connective tissue
CPT/HCPCS: 36415; 80048; 80061; 84439; 84443; 84481

== ENCOUNTER 2022-08-10 10:23 | Day surgery (SDC) | payer MEDICARE, SELFPAY ==
[2022-08-10] VITALS (7 sets, daily range): BP systolic 136–167; BP diastolic 80–99; PULSE 80–97; RESP 12–18; TEMP 36.1–36.9; O2SAT 95–98; BMI 21.6
[2022-08-10] MEDS: LACTATED RINGERS 1,000 ML 42 ML IV (10:55)
--- NOTE | 2022-08-10 11:06 | PM.HP.1 ---
History of Present Illness History of Present Illness Date Patient Seen: 08/10/22 Time Patient Seen: 11:06 Chief complaint: EGD Narrative: Refractory GERD symptoms despite b.i.d. famotidine Patient History Medical History Actinic keratosis Constipation Depression Environmental allergies Fibromyalgia Hemorrhoids Hyperlipidemia Hypothyroidism Nausea Nonscarring hair loss Osteopenia Osteoporosis Pelvic fracture Spasm of thoracic back muscle Surgical History Status post appendectomy (1971) Status post delivery (1970) Status post colonoscopy (07/05/10) Status post hysterectomy with oophorectomy (1995) Family & Social History Family History Father CVA (cerebral infarction) VA (myocardial infarction) Hypertension Alcohol abuse Obesity Mother Osteoporosis Tobacco use Hip fracture Son No problems noted. Social History: household members spouse Tobacco & Substance use: Smoking Status Never smoker alcohol intake current alcohol intake frequency 0-2 drinks per day Substance Use Type does not use Meds Home Medications and Allergies Home Medications Medication Instructions Recorded Confirmed Type Calcium/Vitamin D (#CALCIUM + D 1 tab PO BID ##0 01/02/12 05/15/22 History 600 MG-200 IU) famotidine 20 mg tablet (Pepcid) 20 mg PO BID 03/19/21 08/10/22 History tacrolimus 0.1 % topical ointment topical 07/14/21 05/15/22 History levothyroxine 125 mcg tablet 125 mcg PO DAILY #90 tabs 10/13/21 08/10/22 Rx fluticasone propionate 50 1 spray intranasal BID #16 grams 12/08/21 08/10/22 Rx mcg/actuation nasal spray,suspension (Flonase Allergy Relief) ondansetron HCl 4 mg tablet 4 mg PO Q8-12H PRN nausea and 12/08/21 08/10/22 Rx vomiting #30 tabs cyclobenzaprine 10 mg tablet See Rx Instructions PO TID PRN 03/03/22 08/10/22 Rx muscle spasm #30 tabs sertraline 100 mg tablet 150 mg PO QDAY #135 tabs 05/06/22 08/10/22 Rx simvastatin 40 mg tablet 40 mg PO DAILY 08/10/22 08/10/22 History Allergies Allergy/AdvReac Type Severity Reaction Status Date / Time No Known Drug Allergies Allergy Verified 08/10/22 10:41 Review of Systems Review of Systems ROS: Yes All systems reviewed with the patient and are negative except as otherwise documented Exam Vital Signs (past 8 hours): - 08/10/22 10:45 Temperature 97.4 F L Pulse Rate 80 Respiratory Rate 12 Blood Pressure 155/95 H Pulse Oximetry 98 Oxygen Delivery Method Room Air Oxygen Delivery Method Room Air Const General: cooperative HENMT Head: normal to inspection Eyes General: appearance normal, both eyes and all related structures Neck Neck: normal visual inspection Chest Chest: normal inspection of the chest Resp Effort & Inspection: normal respiratory effort Cardio Rate: regular rate GI Inspection: normal to inspection Skin General: no rashes or lesions noted Neuro General: patient alert and patient awake Extrem General: normal to inspection and no pedal edema Psych Appearance: grossly normal Assessment & Plan Assessment & Plan narrative: 77 refractory GERD. EGD is pursued today. Time Spent With Patient Critical Care time: I spent a total of [] minutes of critical care time on this patient's care today; this time is exclusive of procedural time.
--- NOTE | 2022-08-10 11:30 | PM.PREOP ---
Pre-operative Note Interval Note History & Physical reviewed/Exam performed by Physician: Yes Changes to H&P: No ASA Class (for procedural sedation): II
--- NOTE | 2022-08-10 12:00 | P.OP.EGD_ITS ---
Operative Date/Time/Diagnoses Date of procedure: 08/10/22 Time of procedure: 12:00 Pre-op diagnosis: Refractory GERD. Post-op diagnosis: same Procedure & Clinicians Study performed: EGD Same procedure as scheduled: Yes Indications: Refractory GERD Surgeon: Bryan Kothari Procedure Notes SCOAP/Timeout: Done Procedure in detail: After the risks and benefits were explained, written and verbal informed consent was obtained. The patient was brought into the procedure room and placed into the left lateral decubitus position. Please see anesthesia notes for sedation details. The scope was introduced into the mouth through the bite block and advanced under direct visualization to the 2nd portion of the duodenum. The scope was slowly withdrawn carefully examining the mucosa for any defects or lesions. Retroflexed views were accomplished in the stomach. The stomach was decompressed, the scope was then removed from the patient who tolerated the procedure well. Sedation minutes: 7 Specimen(s): none sent Complications: none Impression: 1. Duodenum: This was normal from the bulb through the 2nd portion. 2. Stomach: No outlet obstruction no ulcers no mass lesions no obvious gastropathy. Retroflexed views of the LES disclosed a small subtle sliding hiatal hernia 3. Esophagus: The GEJ was at approximately 38 cm from the incisors. Subtle sliding hiatal hernia was again noted. The patient had evidence of LA grade C erosive esophagitis. There were at least 4 linear erosions at around the GE junction the longest being almost a cm in length. No strictures no mass lesions throughout the remainder of the esophagus. Endoscopic diagnosis 1. LA grade C erosive esophagitis 2. Subtle sliding hiatal hernia Post-procedure Plan for aftercare: 1. Despite osteoporosis diagnosis, a change in anti-reflux therapy would be appropriate. I recommend a trial of omeprazole 20 mg once daily taken about 30- 60 minutes before the 1st meal of the day on an empty stomach. This should replace famotidine. 2. Repeat EGD to confirm mucosal healing in 8 weeks. Disposition: PACU
== END 2022-08-10 12:30 | disposition home or self-care (01) ==
PROVIDERS: PCP Family Medicine; Referring Provider Internal Medicine Gastroenterology; Visit Provider Internal Medicine Gastroenterology
PROC: 0DJ08ZZ Inspection of Upper Intestinal Tract, Via Natural or Artificial Opening Endoscopic (ICD-10-PCS; CPT 43235; principal; 2022-08-10 11:30)
DX: K21.00 Gastro-esophageal reflux disease with esophagitis, without bleeding (principal); K44.9 Diaphragmatic hernia without obstruction or gangrene
CPT/HCPCS: 43235; J2704

== ENCOUNTER → 2022-08-27 12:21 | Outpatient (CLI) | payer MEDICARE, SELFPAY ==
--- NOTE | 2022-08-27 12:23 | DI.RAD.S_ITS ---
PROCEDURE: XR RIBS RT MIN 3V W CXR 1V INDICATIONS: Rib pain TECHNIQUE: 2 views of the right ribs were acquired, along with a single view chest. COMPARISON: None. FINDINGS: Surgical changes and devices: None. Bones and chest wall: Slightly displaced fractures are seen involving right posterior lateral 6th through 9th ribs. No suspicious bony lesions. Overlying soft tissues appear unremarkable. Lungs and pleura: No pleural effusions or pneumothorax. Lungs appear clear. Mediastinum: Mediastinal contours appear normal. Heart size is normal. IMPRESSION: Slightly displaced right posterior lateral 6th through 9th rib fractures. No focal infiltrate, pleural effusion or pneumothorax. Dictated by: Hans Avila M.D. on 08/27/2022 at 16:15 Approved by: Hans Avila M.D. on 08/27/2022 at 16:15
== END ==
PROVIDERS: PCP Family Medicine; Referring Provider Nurse Practitioner Family; Visit Provider Nurse Practitioner Family
DX: S22.41XA Multiple fractures of ribs, right side, initial encounter for closed fracture (principal); R07.81 Pleurodynia
CPT/HCPCS: 71101

== ENCOUNTER → 2022-11-04 08:00 | Outpatient (CLI) | payer MEDICARE, SELFPAY ==
--- NOTE | 2022-11-04 08:01 | DI.RAD.S_ITS ---
PROCEDURE: XR LUMBAR SPINE MIN 4V INDICATIONS: low back pain TECHNIQUE: 5 views of the lumbar spine were acquired, including bilateral oblique views. COMPARISON: None. FINDINGS: Bones: 5 nonrib-bearing vertebrae are present. Diffuse demineralization. Moderately severe rightward curvature of the lumbar spine with the apex at the L2 level. Multilevel trace retrolisthesis, specifically L2-3, L3-4. Grade 1 anterolisthesis L5-S1. Severe L5-S1 facet arthropathy. Multilevel disc height loss and mild endplate osteophytes. No vertebral body compression fractures. No suspicious bony lesions. Soft tissues: Overlying bowel gas pattern is normal. No suspicious soft tissue calcifications. Oblique images: Limited due to patient body habitus and mineralization. No visible pars defects. IMPRESSION: 1. Severe L5-S1 facet arthropathy and grade 1 anterolisthesis. Pars defects at this level could not be seen due to demineralized osseous structures and patient body habitus. 2. Moderately severe dextroscoliosis and multilevel trace retrolisthesis. Dictated by: Linda Barnett M.D. on 11/04/2022 at 12:37 Approved by: Linda Barnett M.D. on 11/04/2022 at 12:39
== END ==
PROVIDERS: PCP Family Medicine; Referring Provider Anesthesiology; Visit Provider Anesthesiology
DX: M47.26 Other spondylosis with radiculopathy, lumbar region (principal); M47.27 Other spondylosis with radiculopathy, lumbosacral region; M41.9 Scoliosis, unspecified; M43.17 Spondylolisthesis, lumbosacral region; S22.41XA Multiple fractures of ribs, right side, initial encounter for closed fracture; M62.830 Muscle spasm of back; M79.7 Fibromyalgia; M54.31 Sciatica, right side; M81.8 Other osteoporosis without current pathological fracture; G58.8 Other specified mononeuropathies
CPT/HCPCS: 72110; 99214

== ENCOUNTER → 2022-11-13 10:41 | Outpatient (CLI) | payer MEDICARE, SELFPAY ==
--- NOTE | 2022-11-13 10:43 | DI.MRI.S_ITS ---
PROCEDURE: MR THORACIC SPINE WO CON INDICATIONS: Please evaluate thoracic radiculopathy TECHNIQUE: Noncontrast sagittal T1 spine echo and T2 fast spin echo, sagittal STIR, and T2 fast spin echo through the thoracic spine. COMPARISON: [facility], CR, XR LUMBAR SPINE MIN 4V, 11/04/2022, 7:59. [facility], CR, XR RIBS RT MIN 3V W CXR 1V, 08/27/2022, 12:24. FINDINGS: Image quality: This examination is limited by involuntary motion artifact. Alignment and Curvature: Mild levoconvex scoliotic curvature is noted. Accentuated thoracic kyphosis is seen. Mild retrolisthesis can be seen at the T12-L1 and the L1-L2 levels. Bone Marrow: Marrow is of normal overall signal. No acute vertebral body compression fractures. Remote T1 anterior wedge deformity can be seen, with approximately 40% loss of height anteriorly. Scattered foci are seen, which are hyperintense on T1-weighted and T2-weighted imaging, which are most consistent with benign vertebral body hemangiomas. Spinal Cord: Visualized spinal cord is normal in size and signal. Paraspinous Soft Tissues: No paravertebral masses. Miscellaneous: At the T7-T8 level, there is mild central disc, with no significant central canal narrowing or mass effect upon the ventral spinal cord. No significant neural foraminal narrowing can be seen. Moderate neural foraminal narrowing can be seen on both sides at T9-T10 and T10-T11. At the T10-T11 level, there is a mild disc bulge seen, which is eccentric to the left. Mild central canal narrowing is seen, without significant mass effect upon the spinal cord. Milder degenerative changes are seen elsewhere. IMPRESSION: Multiple levels of thoracic spine degenerative change are seen. Accentuated thoracic kyphosis is seen. Dictated by: Dale Munoz M.D. on 11/13/2022 at 13:58 Approved by: Dale Munoz M.D. on 11/13/2022 at 14:01
--- NOTE | 2022-11-13 10:43 | DI.MRI.S_ITS ---
PROCEDURE: MR LUMBAR SPINE WO CON INDICATIONS: Lumbar radiculopathy TECHNIQUE: Noncontrast sagittal T1 spin echo and T2 fast echo, sagittal STIR, and T2 fast spin echo through the lumbar spine. In cases with scoliosis, additional coronal T2 fast spin echo may be performed. COMPARISON: [facility], MR, L-SPINE WITHOUT CONTRAST, 03/12/2014, 18:11. [facility], MR, MR THORACIC SPINE WO CON, 11/13/2022, 10:53. [facility], CR, XR LUMBAR SPINE MIN 4V, 11/04/2022, 7:59. [facility], MR, MR LUMBAR SPINE WO CON, 03/14/2018, 18:53. FINDINGS: Image quality: This examination is limited by involuntary motion artifact. Alignment and Curvature: S shaped scoliosis is seen, with a primary dextroconvex thoracolumbar curvature. Mild retrolisthesis can be seen at T12-L1 and L1-L2, with minimal retrolisthesis at L2-L3 and L3-L4. Mild anterolisthesis is seen at the L5-S1 level, without sriram associated pars defects. Bone Marrow: Marrow is of normal overall signal. No acute vertebral body compression fractures. Spinal Cord: Conus medullaris terminates at the L1 level. Visualized cord demonstrates normal signal and size. Paraspinous Soft Tissues: No paravertebral masses. T12-L1: Moderate loss of disc height and disc signal can be seen on the left. Mild to moderate disc bulge is seen. There is a superimposed central disc protrusion. Mild facet joint hypertrophy is seen. There is soey-kz-jlzxespi left-sided and no right-sided neural foraminal narrowing. Mild central canal narrowing is seen. When comparison is made with the prior images, these findings are similar. L1-L2: There is at least moderate left-sided loss of disc height. Loss of disc signal is seen. Moderate disc bulge is seen, which is eccentric to the left. There is moderate left-sided and no right-sided neural foraminal narrowing. No central canal narrowing is seen. When comparison is made with the prior images, these findings are similar. L2-L3: Mild loss of disc height is seen. Loss of disc signal is seen. Moderate generalized disc bulge is seen. At least moderate facet hypertrophy is seen. There is smuu-ag-jkbpbruz right-sided and moderate left-sided neural foraminal narrowing. Moderate central canal narrowing is seen. These imaging findings have progressed compared to the prior study. L3-L4: Mild loss of disc height and disc signal can be seen on the right side. Mild to moderate disc bulge is seen, with a central disc protrusion. There is at least moderate right-sided and adnl-qn-jclzzdfl left-sided facet hypertrophy. There is moderate to severe right-sided neural foraminal narrowing, with a degree of compression upon the exiting right L3 nerve root. Mild left-sided neural foraminal narrowing is seen. At least moderate central canal narrowing is seen. These imaging findings have progressed compared to the prior study. L4-L5: Elbu-xd-hynhueap loss of disc height and disc signal can be seen on the right side. Mild to moderate disc bulge is seen, which is eccentric to the right. There is at least moderate right-sided and moderate left-sided facet hypertrophy. There is at least moderate right-sided neural foraminal narrowing, with a degree of compression upon the exiting right L4 nerve root. No left-sided neural foraminal narrowing is seen. Mild to moderate central canal narrowing is seen. When comparison is made with the prior images, these findings are similar. L5-S1: The disc height and disk signal are relatively well-preserved. Mild to moderate disc bulge is seen. Prominent facet hypertrophy is seen. There is at least moderate bilateral neural foraminal narrowing, right worse than left. There is a degree of compression seen upon the exiting nerve roots. Moderate central canal narrowing is seen. These imaging findings have progressed compared to the prior study. IMPRESSION: Multiple levels of significant lumbar spine degenerative change can be seen, which are progressed head several levels compared to 2018. S shaped scoliosis, with a primary dextroconvex thoracolumbar scoliosis. Dictated by: Dale Munoz M.D. on 11/13/2022 at 14:01 Approved by: Dale Munoz M.D. on 11/13/2022 at 14:08
== END ==
PROVIDERS: PCP Family Medicine; Referring Provider Anesthesiology; Visit Provider Anesthesiology
DX: M40.204 Unspecified kyphosis, thoracic region (principal); M47.24 Other spondylosis with radiculopathy, thoracic region; M47.26 Other spondylosis with radiculopathy, lumbar region; M47.27 Other spondylosis with radiculopathy, lumbosacral region; G58.8 Other specified mononeuropathies
CPT/HCPCS: 72146; 72148

== ENCOUNTER 2022-11-25 12:31 | Outpatient (CLI) | payer MEDICARE, SELFPAY ==
--- NOTE | 2022-11-25 12:32 | DI.RAD.S_ITS ---
PROCEDURE: PAIN L/S TRANSFORAMINAL INJECT INDICATIONS: SPONDYLOSIS COMPARISON: [facility], , PAIN L/S TRANSFORAMINAL INJECT, 03/29/2018, 13:13. FINDINGS: Fluoroscopic spot filming was performed to verify placement of spinal needles at the right L4-5 and L5-S1 level(s), as labeled on the films. Appropriate location(s) of the needle tip(s) was confirmed by injection of iodinated contrast. IMPRESSION: Images demonstrate right transforaminal L4-5 and L5-S1 injection. Dictated by: Jabier Garcia M.D. on 11/25/2022 at 15:16 Approved by: Jabier Garcia M.D. on 11/25/2022 at 15:16
[2022-11-25 13:00] VITALS: BP 171/97; PULSE 82; RESP 18; TEMP 36.4; O2SAT 97
[2022-11-25 13:38] VITALS: BP 186/91; PULSE 74; RESP 20; O2SAT 99
[2022-11-25 13:40] VITALS: BP 200/93; PULSE 71; RESP 12; O2SAT 100
[2022-11-25] MEDS: DEXAMETHASONE 10 MG/ML VIAL 20 MG INJ (13:43)
[2022-11-25] MEDS: IOPAMIDOL 15 ML VIAL 3 ML INJ (13:44)
[2022-11-25 13:45] VITALS: BP 194/90; PULSE 80; RESP 24; O2SAT 100
[2022-11-25 13:50] VITALS: BP 185/96; PULSE 76; RESP 29; O2SAT 99
[2022-11-25 13:55] VITALS: BP 186/95; PULSE 85; RESP 18; O2SAT 97
--- NOTE | 2022-11-25 14:58 | P.PCN_ITS ---
Date/Time/Diagnoses Date of procedure: 11/25/22 Time of procedure: 13:30 Procedure Notes Physician: Abraham Pang Total Fluoroscopy time (seconds): 24 Total sedation minutes: 0 Procedure in detail & Post-procedure care: Right L4-5 and L5-S1 Transforaminal Epidural Steroid Injection Indications: Louise is presenting for treatment of lumbar radiculopathy with low back and leg pain. Preoperative diagnosis: Right lumbar radiculopathy Postoperative diagnosis: Same Focused Examination: Ax3 Mood and affect are normal Vital Signs: VSS Consent: Following review of allergies and potential side effects/complications, including, but not necessarily limited to, infection, allergic reaction, local tissue breakdown, stroke, temporary or permanent nerve injury, paralysis, and possible , the patient indicated that they understood and agreed to proceed.? An informed consent document was signed by the patient, witnessed by a nurse and placed in the patient's chart.? Additionally, other treatment options including medications and physical therapy were reviewed with the patient. All questions were answered. Site was then marked. Anesthesia: Local Position: Prone Monitoring: NIBP, Pulse oximetry, 3 lead EKG Needle used: 22G 3.5 inch spinal needle Contrast: Isovue 300M Injectate: 10 mg Dexamethasone mixed with 1% lidocaine 1 ml and Normal Saline 1 ml per site Technique: The skin was prepped with chloraprep and draped in a sterile fashion. Time out was performed as per protocol. Oxygen applied via NC. Skin and subcutaneous structures of the needle entry site were infiltrated with 3mL of lidocaine 1%. Under fluoroscopic guidance, using an ipsilateral oblique view,?a 22 gauge 3.5 inch needle was advanced to the base of the right L4?pedicle.? The needle was advanced to the superio-posterior aspect of the neural foramen under lateral view.? Oblique and AP views were rechecked. No paresthesias noted by the patient during needle placement. In AP view and utilizing real-time digital subtraction fluoroscopy, 2 ml contrast was slowly injected. Epidural spread was observed without evidence for intravascular nor intrathecal uptake. Contrast spread was seen craniocaudally. The above injectate was then administered, and the needle was subsequently withdrawn. Skin and subcutaneous structures of the needle entry site were infiltrated with 3mL of lidocaine 1%. Under fluoroscopic guidance, using an ipsilateral oblique view,?a 22 gauge 3.5 inch needle was advanced to the base of the right L5? pedicle.? The needle was advanced to the superio-posterior aspect of the neural foramen under lateral view.? Oblique and AP views were rechecked. No paresthesias noted by the patient during needle placement. In AP view and utilizing real-time digital subtraction fluoroscopy, 2 ml contrast was slowly injected. Epidural spread was observed without evidence for intravascular nor intrathecal uptake. Contrast spread was seen craniocaudally. The above injectate was then administered, and the needle was subsequently withdrawn. Band-Aids applied to injection sites. EBL: less than 1 ml Complications: None Post Procedure: Patient was taken to the recovery and monitored. The patient was provided a Pain Log to continue to record the patient's response to the target- specific procedure prior to the patient's follow-up visit with the referring physician. Patient was stable upon discharge. Detailed post procedure instructions were provided. Patient was asked to call in the event of worsening pain, fever, weakness, numbness or bladder or bowel incontinence.
== END 2022-11-25 14:12 | disposition home or self-care (01) ==
LOC: RAD 12:32
PROVIDERS: PCP Family Medicine; Referring Provider Anesthesiology; Visit Provider Anesthesiology
DX: M54.16 Radiculopathy, lumbar region (principal)
CPT/HCPCS: 64483; 64484; J1100

== ENCOUNTER → 2022-12-22 09:48 | Outpatient (CLI) | payer MEDICARE, SELFPAY ==
--- NOTE | 2022-12-22 09:50 | DI.RAD.S_ITS ---
PROCEDURE: XR KNEE RT 3V INDICATIONS: Right knee pain TECHNIQUE: 3 views of the knee were acquired. COMPARISON: [facility], , KNEE 3V RIGHT, 03/15/2017, 15:05. FINDINGS: Bones: Moderate degenerative changes, with osteophytes and joint space loss. Soft tissues: No significant knee joint effusion. Chondrocalcinosis is present. IMPRESSION: Moderate degenerative changes. Chondrocalcinosis. If there is high concern for further derangement, consider MRI evaluation. Dictated by: Reji Diallo M.D. on 12/22/2022 at 11:39 Approved by: Reji Diallo M.D. on 12/22/2022 at 11:39
== END ==
PROVIDERS: PCP Family Medicine; Referring Provider Anesthesiology; Visit Provider Anesthesiology
DX: M25.561 Pain in right knee (principal); M11.261 Other chondrocalcinosis, right knee; M54.16 Radiculopathy, lumbar region
CPT/HCPCS: 73562; 99213

== ENCOUNTER → 2023-03-09 09:51 | Outpatient (CLI) | payer MEDICARE, SELFPAY ==
[2023-03-09 11:03] LABS: Blood Urea Nitrogen 18 mg/dL (7-17); Calcium 9.3 mg/dL (8.4-10.2); Carbon Dioxide 26 mmol/L (22-32); Chloride 106 mmol/L (98-107); Estimated Glomerular Filt Rate > 60 mL/min (>60); Glucose 113 mg/dL (80-110); HEMOLYSIS < 15 (0-50); Potassium 4.4 mmol/L (3.4-5.1); Sodium 140 mmol/L (137-145)
== END ==
PROVIDERS: Family Provider Family Medicine; PCP Family Medicine; Referring Provider Family Medicine; Visit Provider Family Medicine
DX: K21.9 Gastro-esophageal reflux disease without esophagitis (principal); M81.0 Age-related osteoporosis without current pathological fracture
CPT/HCPCS: 80048

== ENCOUNTER 2023-05-20 09:45 | Outpatient (RCR) | payer MEDICARE, SELFPAY ==
--- NOTE | 2023-03-24 15:06 | PT.OIE ---
Current Diagnoses Radiculopathy, lumbar region (03/24/23) Other abnormalities of gait and mobility (03/24/23) Abnormal posture (03/24/23) Weakness (03/24/23) Past Medical History (Last Updated 02/02/23 @ 09:44 by Abraham Pang MD) Actinic keratosis Balance problem Constipation Depression Dorsalgia Environmental allergies Fibromyalgia Hemorrhoids Hyperlipidemia Hypothyroidism Intercostal neuralgia Lumbar radiculopathy Lumbar spondylosis Nausea Nonscarring hair loss Osteoarthritis of right knee Osteopenia Osteoporosis Pelvic fracture Ribs, multiple fractures Right knee pain Spasm of thoracic back muscle Thoracic radiculopathy Past Surgical History (Last Reviewed 02/02/23 @ 09:39 by Abraham Pang MD) Status post appendectomy (1971) Status post delivery (1970) Status post colonoscopy (07/05/10) Status post hysterectomy with oophorectomy (1995) Visit Care Team Role Provider Type Shannon Keene DO Family Provider Physician Primary Care Provider Specialty: Medical Address: [address] [place] [address], [address], [place], [address] Email: [email or web address] Abraham Pang MD Attending Provider Physician Referring Provider Specialty: Anesthesiology Interventional Radiology Pain Management Address: [address] [place], [address] Email: [email or web address] Initial Evaluation PT-OP-A Visit Information Start: 03/23/23 15:55 Freq: Status: Active Protocol: Document 03/24/23 09:33 SAK (Rec: 03/24/23 10:28 [facility] [id number]) Out-Patient Physical Therapy Visit Information Visit Information Visit Type Initial Evaluation Visit Start Time 09:33 Visit Stop Time 10:30 Total Visit Minutes 57 Visit Number 1 Evaluation Information Evaluation Date 03/24/23 PT-OP-B Current Condition Start: 03/23/23 15:55 Freq: Status: Active Protocol: Document 03/24/23 09:33 SAK (Rec: 03/24/23 10:28 SAK [id number]) Current Condition History of Current Condition Onset Date 6-7 yrs Current Complaints hip and buttock pain with radiation right LE, difficulty walking History of Current Condition Gradual worsening of right sided LB, hip and posterior LE pain over the years. If really bad takes Ibuprofen or Alleve. Uses heat most of the time, minimal use of ice. Has had PT for pain. Also c/o unsteadiness with gait. Has seen pain doctor, had steroid injection. History of occasional falls. Occasional numbness right LE into foot; feeling of heaviness. No regular exercise routine; I'm always moving. Saw chiropractor. Reports fractured pelvis 2 years ago. Treatment Goals Patient/Caregiver Goals Decrease pain, improve activity tolerance and balance . Prior Functional Status Baseline Function- ADL's Independent Baseline Function- Mobility Independent Baseline Function- Recreation/Hobbies walking, gardening Current Functional Impairments (Reported) Functional Limitations- ADL's painful Functional Limitations- Mobility/Gait painful and limited Functional Limitations- Recreation/ walking, hiking Hobbies PT-OP-C Subjective Start: 03/23/23 15:55 Freq: Status: Active Protocol: Document 03/24/23 09:33 SAK (Rec: 03/24/23 15:05 [facility] [id number]) OP-PT Pain Assessment Pain Assessment Grid Paper Pain Assessment Grid Completed Yes Location R leg Pain Location Details right l/s, buttock, posterior right LE Intensity 8 PT-OP-D Balance Start: 03/23/23 15:55 Freq: Status: Active Protocol: Document 03/24/23 09:33 SAK (Rec: 03/24/23 15:05 [facility] [id number]) OP-PT Balance Assessment Sitting Balance Static Sitting Balance Ability Normal Dynamic Sitting Balance Ability Normal Standing Balance Static Standing Balance Ability Fair Dynamic Standing Balance Ability Fair Balance Tests Single Limb Standing Single Limb- Right 0 Single Limb- Left 0 Tandem Tandem Standing 8 Puente Fall Scale Copyright Permission PT-OP-H Neuro Start: 03/23/23 15:55 Freq: Status: Active Protocol: Document 03/24/23 09:33 SAK (Rec: 03/24/23 15:05 [facility] [id number]) Sensation Evaluation Gross Sensation Gross Sensation WNL PT-OP-J Posture/Palpation/Skin Start: 03/23/23 15:55 Freq: Status: Active Protocol: Document 03/24/23 09:33 SAK (Rec: 03/24/23 15:05 [facility] [id number]) Palpation Assessment Location buttock Palpation Location right Palpation Findings Soft Tissue Tightness,Muscle Guarding,Tenderness paraspinals Palpation Location right Palpation Findings Muscle Guarding,Tenderness PT-OP-K Range of Motion Start: 03/23/23 15:55 Freq: Status: Active Protocol: Document 03/24/23 09:33 [facility] (Rec: 03/24/23 15:05 [facility] [id number]) Lumbar Spine Range of Motion Lumbar Spine Active Testing Position Standing Flexion 40 Extension 15 Rotation Left 30 Rotation Right 30 Lateral Flexion Left 20 Lateral Flexion Right 30 ROM Limitations Soft Tissue Tightness Hip Goniometric Range of Motion Hip Right Flexion w/Knee Flexed 95 Straight Leg Raise 60 Extension 0 Abduction 40 Internal Rotation 30 External Rotation 50 Left Flexion w/Knee Flexed 95 Straight Leg Raise 55 Extension 0 Abduction 40 Internal Rotation 30 External Rotation 50 PT-OP-M Strength Start: 03/23/23 15:55 Freq: Status: Active Protocol: Document 03/24/23 09:33 [facility] (Rec: 03/24/23 15:05 [facility] [id number]) Trunk Strength Trunk Manual Muscle Testing Flexion 3+ Fair+ Extension 3+ Fair+ Core Stabilization poor Hip Strength Hip Manual Muscle Testing Right Flexion (L2) 4+ Good+ Extension (S1) 4- Good- Abduction 4- Good- External Rotation 3+ Fair+ Internal Rotation 3+ Fair+ Left Flexion (L2) 4+ Good+ Extension (S1) 4- Good- Abduction 4- Good- External Rotation 3+ Fair+ Internal Rotation 4- Good- Knee Strength Knee Manual Muscle Testing Right Flexion (S2) 4+ Good+ Extension (L3) 4 Good Left Flexion (S2) 5 Normal Extension (L3) 5 Normal Ankle/Foot Strength Ankle and Foot Manual Muscle Testing Right Dorsiflexion (L4) 4 Good Plantarflexion (S1) 4 Good Left Dorsiflexion (L4) 4+ Good+ Plantarflexion (S1) 4+ Good+ PT-OP-Q Treatments Start: 03/23/23 15:55 Freq: Status: Active Protocol: Document 03/24/23 09:33 [facility] (Rec: 03/24/23 15:05 [facility] [id number]) Self-Care/Home Management Treatment Education Patient Education Home Exercise Program,Pain Management,Posture Other Education bed positioning sidelying with pillows and towel under side; issued written handout PT-OP-R Modalities Start: 03/23/23 15:55 Freq: Status: Active Protocol: Document 03/24/23 09:33 [facility] (Rec: 03/24/23 15:05 [facility] [id number]) Electric Stimulation Electric Stimulation Interferential Current (IFC) Body Location tae l/s Duration (Minutes) 15 Intensity 34 Target/Sweep Sweep Patient Position Hooklying Combined With Heat/Cold Hot Pack PT-OP-T Assessment and Plan Start: 03/23/23 15:55 Freq: Status: Active Protocol: Document 03/24/23 09:33 [facility] (Rec: 03/24/23 10:28 [facility] [id number]) Physical Therapy Assessment Rehab Potential Rehabilitation Potential Good Evaluation Complexity Number of Personal Factors/Comorbidities 1-2 Number of Body Systems Impaired 3 Clinical Presentation at Evaluation Evolving Impairments Impairments Balance,Pain,Posture,Strength Goals Four Impairment balance dysfunction Impairment at medium risk for falls, SLS 0, tandem standing bal 8 sec Short Term Goal (STG) Improve SLS to 10 sec tae and tandem standing balance to 30 sec STG Duration 05/11/23 Lumber Bearer Goal (LTG) Improve SLS to 15 sec tae and tandem standing bal to 45 sec to allow her to do all usual activities with decreased risk of falls. LTG Duration 06/23/23 Three Impairment muscle imbalances throughout spine, pelvis, and hips Short Term Goal (STG) Patient to be educated in progressive, individualized HEP for purposes of strengthening, flexbility, and postural stabilization STG Duration 05/11/23 Group Home Goal (LTG) Patient to be independent and compliant with HEP and demonstrate strength at least 4+/5 throughout and flexibility WNL LTG Duration 06/23/23 Two Impairment Oswestry disability index score 57% Short Term Goal (STG) decrease Oswestery score to no greater than 45% STG Duration 05/11/23 Group Home Goal (LTG) decrease Oswestry score to no greater than 25% as measure of improved activity tolerance and quality of life LTG Duration 06/23/23 One Impairment function-limiting pain right l /s, buttock, posterior right LE Impairment pain level 3-8/10 Short Term Goal (STG) Decrease pain to no greater than 4/10 with all usual activities STG Duration 05/11/23 Lumber Bearer Goal (LTG) Decrease pain to no greater than 2/10 with all usual activities LTG Duration 06/23/23 Assessment Summary Assessment Patient presents to PT with pain right hip and buttock with radicular symptoms posterior right LE. Additionally noting some unsteadiness on her feet but denies recent fall. Signs and symptoms positive for nerve root irritation with postural dysfunction and muscle imbalances throughout spine, pelvis, and hips. Patient doesn't do any regular exercise routine. Patient reports pelvic fracture 2 years ago. In standing right hip lower, scoliosis right thoracic left lumbar, sidebent right. Manual muscle testing reveals gluteal and hip rotator weakness, core muscle weakness. Feel patient would benefit from PT for strengtheing, core stabilization, postural correction. Modalities and manual therapy PRN. Physical Therapy Plan Frequency and Duration Frequency of Treatment 1x/Week Duration of treatment (weeks) 12 Plan of Care Start Date 03/24/23 Plan of Care End Date 06/23/23 Therapeutic Interventions Therapeutic Interventions Home Exercise Program,Manual Therapy,Neuromuscular Re- education,Self-Care/Home Management,Soft Tissue Mobilization,Taping, Therapeutic Activities, Therapeutic Exercises Modalities Cold Pack/Ice Massage,Electric Stimulation,Hot Packs, Infrared Therapy,Traction- Mechanical,Ultrasound Next Visit Focus/Plan Next Note Type Treatment Note Next Visit Plan Review HEP, instruction in neutral posture and postural correction with automatic core engagement activities. Modalities and manual therapy PRN.
--- NOTE | 2023-03-24 15:06 | PT.OPPOC ---
Physical, Occupational & Speech Therapy At [facility] Current Diagnoses Radiculopathy, lumbar region (03/24/23) Other abnormalities of gait and mobility (03/24/23) Abnormal posture (03/24/23) Weakness (03/24/23) Visit Care Team Role Provider Type Shannon Keene DO Family Provider Physician Primary Care Provider Specialty: Medical Address: [address] [place] [address], [address], [place], [address] Email: [email or web address] Abraham Pang MD Attending Provider Physician Referring Provider Specialty: Anesthesiology Interventional Radiology Pain Management Address: [address] [place], [address] Email: [email or web address] Plan Of Care PT-OP-T Assessment and Plan Start: 03/23/23 15:55 Freq: Status: Active Protocol: Document 03/24/23 09:33 [facility] (Rec: 03/24/23 10:28 [facility] [id number]) Physical Therapy Assessment Rehab Potential Rehabilitation Potential Good Evaluation Complexity Number of Personal Factors/Comorbidities 1-2 Number of Body Systems Impaired 3 Clinical Presentation at Evaluation Evolving Impairments Impairments Balance,Pain,Posture,Strength Goals Four Impairment balance dysfunction Impairment at medium risk for falls, SLS 0, tandem standing bal 8 sec Short Term Goal (STG) Improve SLS to 10 sec tae and tandem standing balance to 30 sec STG Duration 05/11/23 Longterm Goal (LTG) Improve SLS to 15 sec tae and tandem standing bal to 45 sec to allow her to do all usual activities with decreased risk of falls. LTG Duration 06/23/23 Three Impairment muscle imbalances throughout spine, pelvis, and hips Short Term Goal (STG) Patient to be educated in progressive, individualized HEP for purposes of strengthening, flexbility, and postural stabilization STG Duration 05/11/23 Chaplaincy Goal (LTG) Patient to be independent and compliant with HEP and demonstrate strength at least 4+/5 throughout and flexibility WNL LTG Duration 06/23/23 Two Impairment Oswestry disability index score 57% Short Term Goal (STG) decrease Oswestery score to no greater than 45% STG Duration 05/11/23 Chaplaincy Goal (LTG) decrease Oswestry score to no greater than 25% as measure of improved activity tolerance and quality of life LTG Duration 06/23/23 One Impairment function-limiting pain right l /s, buttock, posterior right LE Impairment pain level 3-8/10 Short Term Goal (STG) Decrease pain to no greater than 4/10 with all usual activities STG Duration 05/11/23 Longterm Goal (LTG) Decrease pain to no greater than 2/10 with all usual activities LTG Duration 06/23/23 Assessment Summary Assessment Patient presents to PT with pain right hip and buttock with radicular symptoms posterior right LE. Additionally noting some unsteadiness on her feet but denies recent fall. Signs and symptoms positive for nerve root irritation with postural dysfunction and muscle imbalances throughout spine, pelvis, and hips. Patient doesn't do any regular exercise routine. Patient reports pelvic fracture 2 years ago. In standing right hip lower, scoliosis right thoracic left lumbar, sidebent right. Manual muscle testing reveals gluteal and hip rotator weakness, core muscle weakness. Feel patient would benefit from PT for strengtheing, core stabilization, postural correction. Modalities and manual therapy PRN. Physical Therapy Plan Frequency and Duration Frequency of Treatment 1x/Week Duration of treatment (weeks) 12 Plan of Care Start Date 03/24/23 Plan of Care End Date 06/23/23 Therapeutic Interventions Therapeutic Interventions Home Exercise Program,Manual Therapy,Neuromuscular Re- education,Self-Care/Home Management,Soft Tissue Mobilization,Taping, Therapeutic Activities, Therapeutic Exercises Modalities Cold Pack/Ice Massage,Electric Stimulation,Hot Packs, Infrared Therapy,Traction- Mechanical,Ultrasound Next Visit Focus/Plan Next Note Type Treatment Note Next Visit Plan Review HEP, instruction in neutral posture and postural correction with automatic core engagement activities. Modalities and manual therapy PRN. Plan of Care Dates Plan of Care Start Date 03/24/23 Plan of Care End Date 06/23/23 Electronically Signed by: Scarlet Mcginnis, PT 03/24/23 1497 If you are in agreement with this Plan of Care, please return a signed and dated copy. I have reviewed this Plan of Care and certify that the skilled therapy services above are required to meet the patient?s needs. Physician Signature Date Printed Name and Credentials Clinical Instructor Signature Printed Name and Credentials
--- NOTE | 2023-03-29 13:31 | PT.OTN ---
Current Diagnoses Radiculopathy, lumbar region (03/29/23) Other abnormalities of gait and mobility (03/29/23) Abnormal posture (03/29/23) Weakness (03/29/23) Physical Therapy Treatment Note PT-OP-A Visit Information Start: 03/23/23 15:55 Freq: Status: Active Protocol: Document 03/29/23 09:34 [facility] (Rec: 03/29/23 10:21 [facility] [id number]) Out-Patient Physical Therapy Visit Information Visit Information Visit Type Treatment Note Visit Start Time 09:34 Visit Stop Time 10:30 Total Visit Minutes 56 Visit Number 2 Evaluation Information Evaluation Date 03/24/23 PT-OP-B Current Condition Start: 03/23/23 15:55 Freq: Status: Active Protocol: Document 03/29/23 09:34 [facility] (Rec: 03/29/23 10:21 SAK [id number]) Current Condition History of Current Condition Onset Date 6-7 yrs Current Complaints hip and buttock pain with radiation right LE, difficulty walking History of Current Condition Gradual worsening of right sided LB, hip and posterior LE pain over the years. If really bad takes Ibuprofen or Alleve. Uses heat most of the time, minimal use of ice. Has had PT for pain. Also c/o unsteadiness with gait. Has seen pain doctor, had steroid injection. History of occasional falls. Occasional numbness right LE into foot; feeling of heaviness. No regular exercise routine; I'm always moving. Saw chiropractor. Reports fractured pelvis 2 years ago. Treatment Goals Patient/Caregiver Goals Decrease pain, improve activity tolerance and balance . Prior Functional Status Baseline Function- ADL's Independent Baseline Function- Mobility Independent Baseline Function- Recreation/Hobbies walking, gardening PT-OP-C Subjective Start: 03/23/23 15:55 Freq: Status: Active Protocol: Document 03/29/23 09:34 [facility] (Rec: 03/29/23 10:21 [facility] [id number]) OP-PT Subjective Patient Comments Patient Comments Reports did her exercises, some pain under left arm with reach overhead, but otherwise felt less pain. States increase in pain when doing things around the house. When she is going to do more physical activities around the house she uses a back brace. Also uses heating pad. Asking if there is a way to make it easier for her to get up from the ground. PT-OP-D Balance Start: 03/23/23 15:55 Freq: Status: Active Protocol: Document 03/24/23 09:33 [facility]AK (Rec: 03/24/23 15:05 [facility] [id number]) OP-PT Balance Assessment Sitting Balance Static Sitting Balance Ability Normal Dynamic Sitting Balance Ability Normal Standing Balance Static Standing Balance Ability Fair Dynamic Standing Balance Ability Fair Balance Tests Single Limb Standing Single Limb- Right 0 Single Limb- Left 0 Tandem Tandem Standing 8 Puente Fall Scale Copyright Permission PT-OP-H Neuro Start: 03/23/23 15:55 Freq: Status: Active Protocol: Document 03/24/23 09:33 [facility]AK (Rec: 03/24/23 15:05 [facility] [id number]) Sensation Evaluation Gross Sensation Gross Sensation WNL PT-OP-J Posture/Palpation/Skin Start: 03/23/23 15:55 Freq: Status: Active Protocol: Document 03/24/23 09:33 [facility]AK (Rec: 03/24/23 15:05 [facility] [id number]) Palpation Assessment Location buttock Palpation Location right Palpation Findings Soft Tissue Tightness,Muscle Guarding,Tenderness paraspinals Palpation Location right Palpation Findings Muscle Guarding,Tenderness PT-OP-K Range of Motion Start: 03/23/23 15:55 Freq: Status: Active Protocol: Document 03/24/23 09:33 [facility]AK (Rec: 03/24/23 15:05 [facility] [id number]) Lumbar Spine Range of Motion Lumbar Spine Active Testing Position Standing Flexion 40 Extension 15 Rotation Left 30 Rotation Right 30 Lateral Flexion Left 20 Lateral Flexion Right 30 ROM Limitations Soft Tissue Tightness Hip Goniometric Range of Motion Hip Right Flexion w/Knee Flexed 95 Straight Leg Raise 60 Extension 0 Abduction 40 Internal Rotation 30 External Rotation 50 Left Flexion w/Knee Flexed 95 Straight Leg Raise 55 Extension 0 Abduction 40 Internal Rotation 30 External Rotation 50 PT-OP-M Strength Start: 03/23/23 15:55 Freq: Status: Active Protocol: Document 03/24/23 09:33 [facility]AK (Rec: 03/24/23 15:05 [facility] [id number]) Trunk Strength Trunk Manual Muscle Testing Flexion 3+ Fair+ Extension 3+ Fair+ Core Stabilization poor Hip Strength Hip Manual Muscle Testing Right Flexion (L2) 4+ Good+ Extension (S1) 4- Good- Abduction 4- Good- External Rotation 3+ Fair+ Internal Rotation 3+ Fair+ Left Flexion (L2) 4+ Good+ Extension (S1) 4- Good- Abduction 4- Good- External Rotation 3+ Fair+ Internal Rotation 4- Good- Knee Strength Knee Manual Muscle Testing Right Flexion (S2) 4+ Good+ Extension (L3) 4 Good Left Flexion (S2) 5 Normal Extension (L3) 5 Normal Ankle/Foot Strength Ankle and Foot Manual Muscle Testing Right Dorsiflexion (L4) 4 Good Plantarflexion (S1) 4 Good Left Dorsiflexion (L4) 4+ Good+ Plantarflexion (S1) 4+ Good+ PT-OP-Q Treatments Start: 03/23/23 15:55 Freq: Status: Active Protocol: Document 03/29/23 09:34 [facility] (Rec: 03/29/23 10:21 [facility] [id number]) Cardio Equipment Recumbent Stepper (Sci-Fit) Duration (Minutes) 5 Resistance 1.5 Seat Position 8 Other cues for upright posture, neutral LEs, push through heels Bicycle (Upright) Duration (Minutes) 3 Resistance 3 Seat Position 4 Therapeutic Exercises Supine Exercises SLR Reps/Minutes 10x Bridge Reps/Minutes 2x10 Figure 4 Reps/Minutes 2x30 piriformis stretch Supine Exercise Name knee to opposite shoulder Reps/Minutes 2x30 hamstring stretch Reps/Minutes 2x30 overhead stretch Reps/Minutes 5x10 Sidelying Exercises hip abduction Reps/Minutes 10x Standing Exercises split squats Comments next session squats Comments next session Self-Care/Home Management Treatment Education Patient Education Home Exercise Program,Pain Management,Posture Other Education bed positioning sidelying with pillows and towel under side; issued written handout PT-OP-R Modalities Start: 03/23/23 15:55 Freq: Status: Active Protocol: Document 03/29/23 09:34 [facility] (Rec: 03/29/23 10:21 [facility] [id number]) Electric Stimulation Electric Stimulation Interferential Current (IFC) Body Location tae l/s Duration (Minutes) 15 Intensity 34 Target/Sweep Sweep Patient Position Hooklying Combined With Heat/Cold Hot Pack PT-OP-T Assessment and Plan Start: 03/23/23 15:55 Freq: Status: Active Protocol: Document 03/29/23 09:34 [facility] (Rec: 03/29/23 10:21 [facility] [id number]) Physical Therapy Assessment Goals Four Impairment balance dysfunction Impairment at medium risk for falls, SLS 0, tandem standing bal 8 sec Short Term Goal (STG) Improve SLS to 10 sec tae and tandem standing balance to 30 sec STG Duration 05/11/23 Group Home Goal (LTG) Improve SLS to 15 sec tae and tandem standing bal to 45 sec to allow her to do all usual activities with decreased risk of falls. LTG Duration 06/23/23 Three Impairment muscle imbalances throughout spine, pelvis, and hips Short Term Goal (STG) Patient to be educated in progressive, individualized HEP for purposes of strengthening, flexbility, and postural stabilization STG Duration 05/11/23 [employer] Goal (LTG) Patient to be independent and compliant with HEP and demonstrate strength at least 4+/5 throughout and flexibility WNL LTG Duration 06/23/23 Two Impairment Oswestry disability index score 57% Short Term Goal (STG) decrease Oswestery score to no greater than 45% STG Duration 05/11/23 Group Home Goal (LTG) decrease Oswestry score to no greater than 25% as measure of improved activity tolerance and quality of life LTG Duration 06/23/23 One Impairment function-limiting pain right l /s, buttock, posterior right LE Impairment pain level 3-8/10 Short Term Goal (STG) Decrease pain to no greater than 4/10 with all usual activities STG Duration 05/11/23 [employer] Goal (LTG) Decrease pain to no greater than 2/10 with all usual activities LTG Duration 06/23/23 Assessment Summary Assessment Good tolerance for ther ex, good compliance to HEP. Reports dec pain with ex. Some education on body mechanics today with fair understanding. Need education with functional household tasks. Physical Therapy Plan Frequency and Duration Frequency of Treatment 1x/Week Duration of treatment (weeks) 12 Plan of Care Start Date 03/24/23 Plan of Care End Date 06/23/23 Therapeutic Interventions Therapeutic Interventions Home Exercise Program,Manual Therapy,Neuromuscular Re- education,Self-Care/Home Management,Soft Tissue Mobilization,Taping, Therapeutic Activities, Therapeutic Exercises Modalities Cold Pack/Ice Massage,Electric Stimulation,Hot Packs, Infrared Therapy,Traction- Mechanical,Ultrasound Next Visit Focus/Plan Next Note Type Treatment Note Next Visit Plan Continue progression of ther ex, initiate body mechanics education simulating vacuuming , lifting.
--- NOTE | 2023-04-01 14:22 | PT.OTN ---
Current Diagnoses Radiculopathy, lumbar region (04/01/23) Other abnormalities of gait and mobility (04/01/23) Abnormal posture (04/01/23) Weakness (04/01/23) Physical Therapy Treatment Note PT-OP-A Visit Information Start: 03/23/23 15:55 Freq: Status: Active Protocol: Document 04/01/23 08:42 [facility] (Rec: 04/01/23 09:31 [facility] [id number]) Out-Patient Physical Therapy Visit Information Visit Information Visit Type Treatment Note Visit Start Time 08:45 Visit Stop Time 09:40 Total Visit Minutes 55 Visit Number 3 Evaluation Information Evaluation Date 03/24/23 PT-OP-B Current Condition Start: 03/23/23 15:55 Freq: Status: Active Protocol: Document 04/01/23 08:42 [facility] (Rec: 04/01/23 09:31 [facility]AK [id number]) Current Condition History of Current Condition Onset Date 6-7 yrs Current Complaints hip and buttock pain with radiation right LE, difficulty walking History of Current Condition Gradual worsening of right sided LB, hip and posterior LE pain over the years. If really bad takes Ibuprofen or Alleve. Uses heat most of the time, minimal use of ice. Has had PT for pain. Also c/o unsteadiness with gait. Has seen pain doctor, had steroid injection. History of occasional falls. Occasional numbness right LE into foot; feeling of heaviness. No regular exercise routine; I'm always moving. Saw chiropractor. Reports fractured pelvis 2 years ago. Treatment Goals Patient/Caregiver Goals Decrease pain, improve activity tolerance and balance . Prior Functional Status Baseline Function- ADL's Independent Baseline Function- Mobility Independent Baseline Function- Recreation/Hobbies walking, gardening PT-OP-C Subjective Start: 03/23/23 15:55 Freq: Status: Active Protocol: Document 04/01/23 08:42 [facility] (Rec: 04/01/23 09:31 [facility] [id number]) OP-PT Subjective Patient Comments Patient Comments Had some muscle soreness on Wednesday but overall improving pain. PT-OP-D Balance Start: 03/23/23 15:55 Freq: Status: Active Protocol: Document 03/24/23 09:33 [facility] (Rec: 03/24/23 15:05 [facility]AK [id number]) OP-PT Balance Assessment Sitting Balance Static Sitting Balance Ability Normal Dynamic Sitting Balance Ability Normal Standing Balance Static Standing Balance Ability Fair Dynamic Standing Balance Ability Fair Balance Tests Single Limb Standing Single Limb- Right 0 Single Limb- Left 0 Tandem Tandem Standing 8 Puente Fall Scale Copyright Permission PT-OP-H Neuro Start: 03/23/23 15:55 Freq: Status: Active Protocol: Document 03/24/23 09:33 [facility] (Rec: 03/24/23 15:05 [facility]AK [id number]) Sensation Evaluation Gross Sensation Gross Sensation WNL PT-OP-J Posture/Palpation/Skin Start: 03/23/23 15:55 Freq: Status: Active Protocol: Document 03/24/23 09:33 [facility] (Rec: 03/24/23 15:05 [facility] [id number]) Palpation Assessment Location buttock Palpation Location right Palpation Findings Soft Tissue Tightness,Muscle Guarding,Tenderness paraspinals Palpation Location right Palpation Findings Muscle Guarding,Tenderness PT-OP-K Range of Motion Start: 03/23/23 15:55 Freq: Status: Active Protocol: Document 03/24/23 09:33 [facility]AK (Rec: 03/24/23 15:05 [facility] [id number]) Lumbar Spine Range of Motion Lumbar Spine Active Testing Position Standing Flexion 40 Extension 15 Rotation Left 30 Rotation Right 30 Lateral Flexion Left 20 Lateral Flexion Right 30 ROM Limitations Soft Tissue Tightness Hip Goniometric Range of Motion Hip Right Flexion w/Knee Flexed 95 Straight Leg Raise 60 Extension 0 Abduction 40 Internal Rotation 30 External Rotation 50 Left Flexion w/Knee Flexed 95 Straight Leg Raise 55 Extension 0 Abduction 40 Internal Rotation 30 External Rotation 50 PT-OP-M Strength Start: 03/23/23 15:55 Freq: Status: Active Protocol: Document 03/24/23 09:33 [facility]AK (Rec: 03/24/23 15:05 [facility] [id number]) Trunk Strength Trunk Manual Muscle Testing Flexion 3+ Fair+ Extension 3+ Fair+ Core Stabilization poor Hip Strength Hip Manual Muscle Testing Right Flexion (L2) 4+ Good+ Extension (S1) 4- Good- Abduction 4- Good- External Rotation 3+ Fair+ Internal Rotation 3+ Fair+ Left Flexion (L2) 4+ Good+ Extension (S1) 4- Good- Abduction 4- Good- External Rotation 3+ Fair+ Internal Rotation 4- Good- Knee Strength Knee Manual Muscle Testing Right Flexion (S2) 4+ Good+ Extension (L3) 4 Good Left Flexion (S2) 5 Normal Extension (L3) 5 Normal Ankle/Foot Strength Ankle and Foot Manual Muscle Testing Right Dorsiflexion (L4) 4 Good Plantarflexion (S1) 4 Good Left Dorsiflexion (L4) 4+ Good+ Plantarflexion (S1) 4+ Good+ PT-OP-Q Treatments Start: 03/23/23 15:55 Freq: Status: Active Protocol: Document 04/01/23 08:42 [facility] (Rec: 04/01/23 09:31 [facility] [id number]) Cardio Equipment Bicycle (Upright) Duration (Minutes) 8 Resistance 4 Seat Position 4 Other cues for upright posture Gym Equipment Shuttle Recovery Unilateral Squats Reps/Time next session Bilateral Squats Reps/Time next session Therapeutic Exercises Supine Exercises IT band stretch Equipment Used strap Reps/Minutes 2x30 Bridge Supine Exercise Name cues for segmental Reps/Minutes 2x10 Figure 4 Reps/Minutes 2x30 piriformis stretch Supine Exercise Name knee to opposite shoulder Reps/Minutes 2x30 hamstring stretch Equipment Used strap Reps/Minutes 2x30 overhead stretch Reps/Minutes 5x10 Comments cues for lengthening sides Sidelying Exercises hip abduction Reps/Minutes 10x Comments mod cues alignment and core stab Standing Exercises SLS Reps/Minutes 2x30 split squats Equipment Used mirror Reps/Minutes 10x Comments mod cues alignment and gluteal activation squats Equipment Used mirror Reps/Minutes 10x Comments mod cues alignment and gluteal activation Self-Care/Home Management Treatment Education Patient Education Home Exercise Program,Pain Management,Posture PT-OP-R Modalities Start: 03/23/23 15:55 Freq: Status: Active Protocol: Document 04/01/23 08:42 [facility] (Rec: 04/01/23 09:31 [facility] [id number]) Electric Stimulation Electric Stimulation Interferential Current (IFC) Body Location tae l/s Duration (Minutes) 15 Intensity 34 Target/Sweep Sweep Patient Position Hooklying Combined With Heat/Cold Hot Pack PT-OP-T Assessment and Plan Start: 03/23/23 15:55 Freq: Status: Active Protocol: Document 04/01/23 08:42 [facility] (Rec: 04/01/23 09:31 [facility] [id number]) Physical Therapy Assessment Impairments Impairments Balance,Pain,Posture,Strength Goals Four Impairment balance dysfunction Impairment at medium risk for falls, SLS 0, tandem standing bal 8 sec Short Term Goal (STG) Improve SLS to 10 sec tae and tandem standing balance to 30 sec STG Duration 05/11/23 [employer] Goal (LTG) Improve SLS to 15 sec tae and tandem standing bal to 45 sec to allow her to do all usual activities with decreased risk of falls. LTG Duration 06/23/23 Three Impairment muscle imbalances throughout spine, pelvis, and hips Short Term Goal (STG) Patient to be educated in progressive, individualized HEP for purposes of strengthening, flexbility, and postural stabilization STG Duration 05/11/23 [facility] Goal (LTG) Patient to be independent and compliant with HEP and demonstrate strength at least 4+/5 throughout and flexibility WNL LTG Duration 06/23/23 Two Impairment Oswestry disability index score 57% Short Term Goal (STG) decrease Oswestery score to no greater than 45% STG Duration 05/11/23 [employer] Goal (LTG) decrease Oswestry score to no greater than 25% as measure of improved activity tolerance and quality of life LTG Duration 06/23/23 One Impairment function-limiting pain right l /s, buttock, posterior right LE Impairment pain level 3-8/10 Short Term Goal (STG) Decrease pain to no greater than 4/10 with all usual activities STG Duration 05/11/23 [facility] Goal (LTG) Decrease pain to no greater than 2/10 with all usual activities LTG Duration 06/23/23 Progress Towards Goals Progress Towards Goals Progressing Toward Goals Assessment Summary Assessment Able to progress ther ex today, mod cues for alignment and core stab. Patient tendency to stand with hyperextension at knees, posterior thoracic positioning ; patient ed for correction, will need further ed. Physical Therapy Plan Frequency and Duration Frequency of Treatment 1x/Week Duration of treatment (weeks) 12 Plan of Care Start Date 03/24/23 Plan of Care End Date 06/23/23 Therapeutic Interventions Therapeutic Interventions Home Exercise Program,Manual Therapy,Neuromuscular Re- education,Self-Care/Home Management,Soft Tissue Mobilization,Taping, Therapeutic Activities, Therapeutic Exercises Modalities Cold Pack/Ice Massage,Electric Stimulation,Hot Packs, Infrared Therapy,Traction- Mechanical,Ultrasound Next Visit Focus/Plan Next Note Type Treatment Note Next Visit Plan Continue progression of ther ex, initiate body mechanics education simulating vacuuming , lifting. Continue strengthening and progression toward floor transfers
--- NOTE | 2023-04-05 15:01 | PT.OTN ---
Current Diagnoses Radiculopathy, lumbar region (04/05/23) Other abnormalities of gait and mobility (04/05/23) Abnormal posture (04/05/23) Weakness (04/05/23) Physical Therapy Treatment Note PT-OP-A Visit Information Start: 03/23/23 15:55 Freq: Status: Active Protocol: Document 04/05/23 08:49 SAK (Rec: 04/05/23 09:32 SAK [id number]) Out-Patient Physical Therapy Visit Information Visit Information Visit Type Treatment Note Visit Start Time 08:45 Visit Stop Time 09:40 Total Visit Minutes 55 Visit Number 4 Evaluation Information Evaluation Date 03/24/23 PT-OP-B Current Condition Start: 03/23/23 15:55 Freq: Status: Active Protocol: Document 04/05/23 08:49 SAK (Rec: 04/05/23 09:32 SAK [id number]) Current Condition History of Current Condition Onset Date 6-7 yrs Current Complaints hip and buttock pain with radiation right LE, difficulty walking History of Current Condition Gradual worsening of right sided LB, hip and posterior LE pain over the years. If really bad takes Ibuprofen or Alleve. Uses heat most of the time, minimal use of ice. Has had PT for pain. Also c/o unsteadiness with gait. Has seen pain doctor, had steroid injection. History of occasional falls. Occasional numbness right LE into foot; feeling of heaviness. No regular exercise routine; I'm always moving. Saw chiropractor. Reports fractured pelvis 2 years ago. PT-OP-C Subjective Start: 03/23/23 15:55 Freq: Status: Active Protocol: Document 04/05/23 08:49 SAK (Rec: 04/05/23 09:32 SAK [id number]) OP-PT Subjective Patient Comments Patient Comments Reports had soreness last Wednesday, went away by the next day. PT-OP-D Balance Start: 03/23/23 15:55 Freq: Status: Active Protocol: Document 03/24/23 09:33 SAK (Rec: 03/24/23 15:05 SAK [id number]) OP-PT Balance Assessment Sitting Balance Static Sitting Balance Ability Normal Dynamic Sitting Balance Ability Normal Standing Balance Static Standing Balance Ability Fair Dynamic Standing Balance Ability Fair Balance Tests Single Limb Standing Single Limb- Right 0 Single Limb- Left 0 Tandem Tandem Standing 8 Puente Fall Scale Copyright Permission PT-OP-H Neuro Start: 03/23/23 15:55 Freq: Status: Active Protocol: Document 03/24/23 09:33 SAK (Rec: 03/24/23 15:05 [facility] [id number]) Sensation Evaluation Gross Sensation Gross Sensation WNL PT-OP-J Posture/Palpation/Skin Start: 03/23/23 15:55 Freq: Status: Active Protocol: Document 03/24/23 09:33 SAK (Rec: 03/24/23 15:05 [facility] [id number]) Palpation Assessment Location buttock Palpation Location right Palpation Findings Soft Tissue Tightness,Muscle Guarding,Tenderness paraspinals Palpation Location right Palpation Findings Muscle Guarding,Tenderness PT-OP-K Range of Motion Start: 03/23/23 15:55 Freq: Status: Active Protocol: Document 03/24/23 09:33 SAK (Rec: 03/24/23 15:05 [facility] [id number]) Lumbar Spine Range of Motion Lumbar Spine Active Testing Position Standing Flexion 40 Extension 15 Rotation Left 30 Rotation Right 30 Lateral Flexion Left 20 Lateral Flexion Right 30 ROM Limitations Soft Tissue Tightness Hip Goniometric Range of Motion Hip Right Flexion w/Knee Flexed 95 Straight Leg Raise 60 Extension 0 Abduction 40 Internal Rotation 30 External Rotation 50 Left Flexion w/Knee Flexed 95 Straight Leg Raise 55 Extension 0 Abduction 40 Internal Rotation 30 External Rotation 50 PT-OP-M Strength Start: 03/23/23 15:55 Freq: Status: Active Protocol: Document 03/24/23 09:33 SAK (Rec: 03/24/23 15:05 [facility] [id number]) Trunk Strength Trunk Manual Muscle Testing Flexion 3+ Fair+ Extension 3+ Fair+ Core Stabilization poor Hip Strength Hip Manual Muscle Testing Right Flexion (L2) 4+ Good+ Extension (S1) 4- Good- Abduction 4- Good- External Rotation 3+ Fair+ Internal Rotation 3+ Fair+ Left Flexion (L2) 4+ Good+ Extension (S1) 4- Good- Abduction 4- Good- External Rotation 3+ Fair+ Internal Rotation 4- Good- Knee Strength Knee Manual Muscle Testing Right Flexion (S2) 4+ Good+ Extension (L3) 4 Good Left Flexion (S2) 5 Normal Extension (L3) 5 Normal Ankle/Foot Strength Ankle and Foot Manual Muscle Testing Right Dorsiflexion (L4) 4 Good Plantarflexion (S1) 4 Good Left Dorsiflexion (L4) 4+ Good+ Plantarflexion (S1) 4+ Good+ PT-OP-Q Treatments Start: 03/23/23 15:55 Freq: Status: Active Protocol: Document 04/05/23 08:49 [facility] (Rec: 04/05/23 09:32 [facility] [id number]) Cardio Equipment Recumbent Stepper (Sci-Fit) Duration (Minutes) 6 Resistance 2.0 Seat Position 8 Other cues for upright posture, neutral LEs, push through heels Therapeutic Exercises Standing Exercises resisted sidestepping Equipment Used yellow band Reps/Minutes 10 ft tae Comments postural cues row, shld ext Equipment Used L1 TB Reps/Minutes 10x split squats Equipment Used mirror Reps/Minutes 10x Comments mod cues alignment and gluteal activation squats Equipment Used mirror Reps/Minutes 10x Comments mod cues alignment and gluteal activation Other Exercises child's pose Reps/Minutes 2x30 cat/cow Reps/Minutes 5x bird dog Reps/Minutes 5x Self-Care/Home Management Treatment Education Patient Education Home Exercise Program,Pain Management,Posture PT-OP-R Modalities Start: 03/23/23 15:55 Freq: Status: Active Protocol: Document 04/05/23 08:49 [facility] (Rec: 04/05/23 09:32 [facility] [id number]) Electric Stimulation Electric Stimulation Interferential Current (IFC) Body Location tae l/s Duration (Minutes) 15 Intensity 34 Target/Sweep Sweep Patient Position Hooklying Combined With Heat/Cold Hot Pack PT-OP-T Assessment and Plan Start: 03/23/23 15:55 Freq: Status: Active Protocol: Document 04/05/23 08:49 [facility] (Rec: 04/05/23 09:32 [facility] [id number]) Physical Therapy Assessment Impairments Impairments Balance,Pain,Posture,Strength Goals Four Impairment balance dysfunction Impairment at medium risk for falls, SLS 0, tandem standing bal 8 sec Short Term Goal (STG) Improve SLS to 10 sec tae and tandem standing balance to 30 sec STG Duration 05/11/23 Senior Front End Developer Goal (LTG) Improve SLS to 15 sec tae and tandem standing bal to 45 sec to allow her to do all usual activities with decreased risk of falls. LTG Duration 06/23/23 Three Impairment muscle imbalances throughout spine, pelvis, and hips Short Term Goal (STG) Patient to be educated in progressive, individualized HEP for purposes of strengthening, flexbility, and postural stabilization STG Duration 05/11/23 Nursing Home Goal (LTG) Patient to be independent and compliant with HEP and demonstrate strength at least 4+/5 throughout and flexibility WNL LTG Duration 06/23/23 Two Impairment Oswestry disability index score 57% Short Term Goal (STG) decrease Oswestery score to no greater than 45% STG Duration 05/11/23 Nursing Home Goal (LTG) decrease Oswestry score to no greater than 25% as measure of improved activity tolerance and quality of life LTG Duration 06/23/23 One Impairment function-limiting pain right l /s, buttock, posterior right LE Impairment pain level 3-8/10 Short Term Goal (STG) Decrease pain to no greater than 4/10 with all usual activities STG Duration 05/11/23 Nursing Home Goal (LTG) Decrease pain to no greater than 2/10 with all usual activities LTG Duration 06/23/23 Progress Towards Goals Progress Towards Goals Progressing Toward Goals Assessment Summary Assessment Patient with improving tolerance for ther ex with progression today adding bird dog, child's pose, cat/cow, standing row and shoulder ext Mod cues for alignment, core stab with all. Physical Therapy Plan Frequency and Duration Frequency of Treatment 1x/Week Duration of treatment (weeks) 12 Plan of Care Start Date 03/24/23 Plan of Care End Date 06/23/23 Therapeutic Interventions Therapeutic Interventions Home Exercise Program,Manual Therapy,Neuromuscular Re- education,Self-Care/Home Management,Soft Tissue Mobilization,Taping, Therapeutic Activities, Therapeutic Exercises Modalities Cold Pack/Ice Massage,Electric Stimulation,Hot Packs, Infrared Therapy,Traction- Mechanical,Ultrasound Next Visit Focus/Plan Next Note Type Treatment Note Next Visit Plan Continue progression of ther ex, initiate body mechanics education simulating vacuuming , lifting. Continue strengthening and progression toward floor transfers
--- NOTE | 2023-04-08 09:45 | PT.OTN ---
Current Diagnoses Radiculopathy, lumbar region (04/08/23) Other abnormalities of gait and mobility (04/08/23) Abnormal posture (04/08/23) Weakness (04/08/23) Physical Therapy Treatment Note PT-OP-A Visit Information Start: 03/23/23 15:55 Freq: Status: Active Protocol: Document 04/08/23 09:06 SP (Rec: 04/08/23 09:52 SP [id number]) Out-Patient Physical Therapy Visit Information Visit Information Visit Type Treatment Note Visit Start Time 09:06 Visit Stop Time 09:45 Total Visit Minutes 39 Visit Number 5 Number of MEDICAL BILLING ASSOCIATE Visits 1 Evaluation Information Evaluation Date 03/24/23 PT-OP-B Current Condition Start: 03/23/23 15:55 Freq: Status: Active Protocol: Document 04/05/23 08:49 SAK (Rec: 04/05/23 09:32 SAK [id number]) Current Condition History of Current Condition Onset Date 6-7 yrs Current Complaints hip and buttock pain with radiation right LE, difficulty walking History of Current Condition Gradual worsening of right sided LB, hip and posterior LE pain over the years. If really bad takes Ibuprofen or Alleve. Uses heat most of the time, minimal use of ice. Has had PT for pain. Also c/o unsteadiness with gait. Has seen pain doctor, had steroid injection. History of occasional falls. Occasional numbness right LE into foot; feeling of heaviness. No regular exercise routine; I'm always moving. Saw chiropractor. Reports fractured pelvis 2 years ago. PT-OP-C Subjective Start: 03/23/23 15:55 Freq: Status: Active Protocol: Document 04/08/23 09:06 SP (Rec: 04/08/23 09:52 SP [id number]) OP-PT Subjective Patient Comments Patient Comments Pt reports wanted to review exercises did last tx and if can get a band to do at home with pictures to follow. PT-OP-D Balance Start: 03/23/23 15:55 Freq: Status: Active Protocol: Document 03/24/23 09:33 SAK (Rec: 03/24/23 15:05 SAK [id number]) OP-PT Balance Assessment Sitting Balance Static Sitting Balance Ability Normal Dynamic Sitting Balance Ability Normal Standing Balance Static Standing Balance Ability Fair Dynamic Standing Balance Ability Fair Balance Tests Single Limb Standing Single Limb- Right 0 Single Limb- Left 0 Tandem Tandem Standing 8 Puente Fall Scale Copyright Permission PT-OP-H Neuro Start: 03/23/23 15:55 Freq: Status: Active Protocol: Document 03/24/23 09:33 SAK (Rec: 03/24/23 15:05 [facility] [id number]) Sensation Evaluation Gross Sensation Gross Sensation WNL PT-OP-J Posture/Palpation/Skin Start: 03/23/23 15:55 Freq: Status: Active Protocol: Document 03/24/23 09:33 SAK (Rec: 03/24/23 15:05 [facility] [id number]) Palpation Assessment Location buttock Palpation Location right Palpation Findings Soft Tissue Tightness,Muscle Guarding,Tenderness paraspinals Palpation Location right Palpation Findings Muscle Guarding,Tenderness PT-OP-K Range of Motion Start: 03/23/23 15:55 Freq: Status: Active Protocol: Document 03/24/23 09:33 SAK (Rec: 03/24/23 15:05 [facility] [id number]) Lumbar Spine Range of Motion Lumbar Spine Active Testing Position Standing Flexion 40 Extension 15 Rotation Left 30 Rotation Right 30 Lateral Flexion Left 20 Lateral Flexion Right 30 ROM Limitations Soft Tissue Tightness Hip Goniometric Range of Motion Hip Right Flexion w/Knee Flexed 95 Straight Leg Raise 60 Extension 0 Abduction 40 Internal Rotation 30 External Rotation 50 Left Flexion w/Knee Flexed 95 Straight Leg Raise 55 Extension 0 Abduction 40 Internal Rotation 30 External Rotation 50 PT-OP-M Strength Start: 03/23/23 15:55 Freq: Status: Active Protocol: Document 03/24/23 09:33 SAK (Rec: 03/24/23 15:05 [facility] [id number]) Trunk Strength Trunk Manual Muscle Testing Flexion 3+ Fair+ Extension 3+ Fair+ Core Stabilization poor Hip Strength Hip Manual Muscle Testing Right Flexion (L2) 4+ Good+ Extension (S1) 4- Good- Abduction 4- Good- External Rotation 3+ Fair+ Internal Rotation 3+ Fair+ Left Flexion (L2) 4+ Good+ Extension (S1) 4- Good- Abduction 4- Good- External Rotation 3+ Fair+ Internal Rotation 4- Good- Knee Strength Knee Manual Muscle Testing Right Flexion (S2) 4+ Good+ Extension (L3) 4 Good Left Flexion (S2) 5 Normal Extension (L3) 5 Normal Ankle/Foot Strength Ankle and Foot Manual Muscle Testing Right Dorsiflexion (L4) 4 Good Plantarflexion (S1) 4 Good Left Dorsiflexion (L4) 4+ Good+ Plantarflexion (S1) 4+ Good+ PT-OP-Q Treatments Start: 03/23/23 15:55 Freq: Status: Active Protocol: Document 04/08/23 09:06 SP (Rec: 04/08/23 09:52 SP [id number]) Cardio Equipment Recumbent Elliptical (Biodex) Duration (Minutes) 5 Resistance 3>2 Seat Position 6 Other UEs/LEs, 40-50 RPMs, 644 steps Therapeutic Exercises Standing Exercises resisted sidestepping Standing Exercise Name added to HEP Side bilateral Resistance orange band Reps/Minutes 10 ft x2.5 laps Comments cued central postural, clearance and slow eccentric trialing LE row, shld ext Standing Exercise Name added to HEP Equipment Used L1 TB Reps/Minutes 10x squats Standing Exercise Name 1. STS 2. eccentric squat taps Equipment Used mirror Reps/Minutes 1. x10 2. x4 reps Comments mod cues scoot fwd, feet back, hip hinge asc/descend no UE - good lat 2 rep PT-OP-R Modalities Start: 03/23/23 15:55 Freq: Status: Active Protocol: Document 04/05/23 08:49 SAK (Rec: 04/05/23 09:32 SAK [id number]) Electric Stimulation Electric Stimulation Interferential Current (IFC) Body Location tae l/s Duration (Minutes) 15 Intensity 34 Target/Sweep Sweep Patient Position Hooklying Combined With Heat/Cold Hot Pack PT-OP-T Assessment and Plan Start: 03/23/23 15:55 Freq: Status: Active Protocol: Document 04/08/23 09:06 SP (Rec: 04/08/23 09:52 SP [id number]) Physical Therapy Assessment Goals Four Impairment balance dysfunction Impairment at medium risk for falls, SLS 0, tandem standing bal 8 sec Short Term Goal (STG) Improve SLS to 10 sec tae and tandem standing balance to 30 sec STG Duration 05/11/23 Brand Marketing Coordinator Goal (LTG) Improve SLS to 15 sec tae and tandem standing bal to 45 sec to allow her to do all usual activities with decreased risk of falls. LTG Duration 06/23/23 Three Impairment muscle imbalances throughout spine, pelvis, and hips Short Term Goal (STG) Patient to be educated in progressive, individualized HEP for purposes of strengthening, flexbility, and postural stabilization STG Duration 05/11/23 Brand Marketing Coordinator Goal (LTG) Patient to be independent and compliant with HEP and demonstrate strength at least 4+/5 throughout and flexibility WNL LTG Duration 06/23/23 Two Impairment Oswestry disability index score 57% Short Term Goal (STG) decrease Oswestery score to no greater than 45% STG Duration 05/11/23 Brand Marketing Coordinator Goal (LTG) decrease Oswestry score to no greater than 25% as measure of improved activity tolerance and quality of life LTG Duration 06/23/23 One Impairment function-limiting pain right l /s, buttock, posterior right LE Impairment pain level 3-8/10 Short Term Goal (STG) Decrease pain to no greater than 4/10 with all usual activities STG Duration 05/11/23 Group Home Goal (LTG) Decrease pain to no greater than 2/10 with all usual activities LTG Duration 06/23/23 Assessment Summary Assessment Tx focused on resisted HEP shld ext/rows/ side stepping, reported no back pain post cues for PPT corrections. Good carryover with standing posture and form end tx. Provided HOs and bands for self performance at home to progress strengthening. Physical Therapy Plan Frequency and Duration Frequency of Treatment 1x/Week Duration of treatment (weeks) 12 Plan of Care Start Date 03/24/23 Plan of Care End Date 06/23/23 Therapeutic Interventions Therapeutic Interventions Home Exercise Program,Manual Therapy,Neuromuscular Re- education,Self-Care/Home Management,Soft Tissue Mobilization,Taping, Therapeutic Activities, Therapeutic Exercises Modalities Cold Pack/Ice Massage,Electric Stimulation,Hot Packs, Infrared Therapy,Traction- Mechanical,Ultrasound Next Visit Focus/Plan Next Note Type Treatment Note Next Visit Plan Continue progression of ther ex, initiate body mechanics education simulating vacuuming , lifting. Continue strengthening and progression toward floor transfers
--- NOTE | 2023-04-14 10:27 | PT.OTN ---
Current Diagnoses Radiculopathy, lumbar region (04/14/23) Other abnormalities of gait and mobility (04/14/23) Abnormal posture (04/14/23) Weakness (04/14/23) Physical Therapy Treatment Note PT-OP-A Visit Information Start: 03/23/23 15:55 Freq: Status: Active Protocol: Document 04/14/23 09:34 SAK (Rec: 04/14/23 10:27 SAK [id number]) Out-Patient Physical Therapy Visit Information Visit Information Visit Type Treatment Note Visit Start Time 09:34 Visit Stop Time 10:15 Total Visit Minutes 41 Visit Number 6 Number of SALVAGE GRINDER Visits 0 Evaluation Information Evaluation Date 03/24/23 PT-OP-B Current Condition Start: 03/23/23 15:55 Freq: Status: Active Protocol: Document 04/14/23 09:34 SAK (Rec: 04/14/23 10:27 SAK [id number]) Current Condition History of Current Condition Onset Date 6-7 yrs Current Complaints hip and buttock pain with radiation right LE, difficulty walking History of Current Condition Gradual worsening of right sided LB, hip and posterior LE pain over the years. If really bad takes Ibuprofen or Alleve. Uses heat most of the time, minimal use of ice. Has had PT for pain. Also c/o unsteadiness with gait. Has seen pain doctor, had steroid injection. History of occasional falls. Occasional numbness right LE into foot; feeling of heaviness. No regular exercise routine; I'm always moving. Saw chiropractor. Reports fractured pelvis 2 years ago. PT-OP-C Subjective Start: 03/23/23 15:55 Freq: Status: Active Protocol: Document 04/08/23 09:06 SP (Rec: 04/08/23 09:52 SP [id number]) OP-PT Subjective Patient Comments Patient Comments Pt reports wanted to review exercises did last tx and if can get a band to do at home with pictures to follow. PT-OP-D Balance Start: 03/23/23 15:55 Freq: Status: Active Protocol: Document 03/24/23 09:33 SAK (Rec: 03/24/23 15:05 SAK [id number]) OP-PT Balance Assessment Sitting Balance Static Sitting Balance Ability Normal Dynamic Sitting Balance Ability Normal Standing Balance Static Standing Balance Ability Fair Dynamic Standing Balance Ability Fair Balance Tests Single Limb Standing Single Limb- Right 0 Single Limb- Left 0 Tandem Tandem Standing 8 Puente Fall Scale Copyright Permission PT-OP-H Neuro Start: 03/23/23 15:55 Freq: Status: Active Protocol: Document 03/24/23 09:33 SAK (Rec: 03/24/23 15:05 [facility] [id number]) Sensation Evaluation Gross Sensation Gross Sensation WNL PT-OP-J Posture/Palpation/Skin Start: 03/23/23 15:55 Freq: Status: Active Protocol: Document 03/24/23 09:33 SAK (Rec: 03/24/23 15:05 [facility] [id number]) Palpation Assessment Location buttock Palpation Location right Palpation Findings Soft Tissue Tightness,Muscle Guarding,Tenderness paraspinals Palpation Location right Palpation Findings Muscle Guarding,Tenderness PT-OP-K Range of Motion Start: 03/23/23 15:55 Freq: Status: Active Protocol: Document 03/24/23 09:33 SAK (Rec: 03/24/23 15:05 [facility] [id number]) Lumbar Spine Range of Motion Lumbar Spine Active Testing Position Standing Flexion 40 Extension 15 Rotation Left 30 Rotation Right 30 Lateral Flexion Left 20 Lateral Flexion Right 30 ROM Limitations Soft Tissue Tightness Hip Goniometric Range of Motion Hip Right Flexion w/Knee Flexed 95 Straight Leg Raise 60 Extension 0 Abduction 40 Internal Rotation 30 External Rotation 50 Left Flexion w/Knee Flexed 95 Straight Leg Raise 55 Extension 0 Abduction 40 Internal Rotation 30 External Rotation 50 PT-OP-M Strength Start: 03/23/23 15:55 Freq: Status: Active Protocol: Document 03/24/23 09:33 SAK (Rec: 03/24/23 15:05 [facility] [id number]) Trunk Strength Trunk Manual Muscle Testing Flexion 3+ Fair+ Extension 3+ Fair+ Core Stabilization poor Hip Strength Hip Manual Muscle Testing Right Flexion (L2) 4+ Good+ Extension (S1) 4- Good- Abduction 4- Good- External Rotation 3+ Fair+ Internal Rotation 3+ Fair+ Left Flexion (L2) 4+ Good+ Extension (S1) 4- Good- Abduction 4- Good- External Rotation 3+ Fair+ Internal Rotation 4- Good- Knee Strength Knee Manual Muscle Testing Right Flexion (S2) 4+ Good+ Extension (L3) 4 Good Left Flexion (S2) 5 Normal Extension (L3) 5 Normal Ankle/Foot Strength Ankle and Foot Manual Muscle Testing Right Dorsiflexion (L4) 4 Good Plantarflexion (S1) 4 Good Left Dorsiflexion (L4) 4+ Good+ Plantarflexion (S1) 4+ Good+ PT-OP-Q Treatments Start: 03/23/23 15:55 Freq: Status: Active Protocol: Document 04/14/23 09:34 [facility] (Rec: 04/14/23 10:27 [facility] [id number]) Cardio Equipment Bicycle (Upright) Duration (Minutes) 8 Resistance 4-5 Seat Position 4 Other cues for upright posture Therapeutic Exercises Sidelying Exercises hip abduction Reps/Minutes 10x Comments mod cues alignment and core stab Standing Exercises Paleoff press Reps/Minutes 10x resisted sidestepping Standing Exercise Name added to HEP Side bilateral Resistance orange band Reps/Minutes 10 ft x2.5 laps Comments cued central postural, clearance and slow eccentric trialing LE row, shld ext Standing Exercise Name added to HEP Equipment Used L1 TB Reps/Minutes 10x split squats Equipment Used mirror Reps/Minutes 10x Comments mod cues alignment and gluteal activation squats Standing Exercise Name 1. STS 2. eccentric squat taps Equipment Used mirror Reps/Minutes 1. x10 2. x4 reps Comments mod cues scoot fwd, feet back, hip hinge asc/descend no UE - good lat 2 rep PT-OP-R Modalities Start: 03/23/23 15:55 Freq: Status: Active Protocol: Document 04/14/23 09:34 [facility] (Rec: 04/14/23 10:27 [facility] [id number]) Electric Stimulation Electric Stimulation Interferential Current (IFC) Body Location tae l/s Duration (Minutes) 15 Intensity 34 Target/Sweep Sweep Patient Position Hooklying Combined With Heat/Cold Hot Pack PT-OP-T Assessment and Plan Start: 03/23/23 15:55 Freq: Status: Active Protocol: Document 04/14/23 09:34 [facility] (Rec: 04/14/23 10:27 [facility] [id number]) Physical Therapy Assessment Goals Four Impairment balance dysfunction Impairment at medium risk for falls, SLS 0, tandem standing bal 8 sec Short Term Goal (STG) Improve SLS to 10 sec tae and tandem standing balance to 30 sec STG Duration 05/11/23 Senior Care Goal (LTG) Improve SLS to 15 sec tae and tandem standing bal to 45 sec to allow her to do all usual activities with decreased risk of falls. LTG Duration 06/23/23 Three Impairment muscle imbalances throughout spine, pelvis, and hips Short Term Goal (STG) Patient to be educated in progressive, individualized HEP for purposes of strengthening, flexbility, and postural stabilization STG Duration 05/11/23 Senior Care Goal (LTG) Patient to be independent and compliant with HEP and demonstrate strength at least 4+/5 throughout and flexibility WNL LTG Duration 06/23/23 Two Impairment Oswestry disability index score 57% Short Term Goal (STG) decrease Oswestery score to no greater than 45% STG Duration 05/11/23 Wood Handler Goal (LTG) decrease Oswestry score to no greater than 25% as measure of improved activity tolerance and quality of life LTG Duration 06/23/23 One Impairment function-limiting pain right l /s, buttock, posterior right LE Impairment pain level 3-8/10 Short Term Goal (STG) Decrease pain to no greater than 4/10 with all usual activities STG Duration 05/11/23 Senior Care Goal (LTG) Decrease pain to no greater than 2/10 with all usual activities LTG Duration 06/23/23 Assessment Summary Assessment Mod cues with all ex for core activation, unlock knees, center ribcage over pelvis. With squats and stagger squat cues for long spine, keeping knees behind toes. Physical Therapy Plan Frequency and Duration Frequency of Treatment 1x/Week Duration of treatment (weeks) 12 Plan of Care Start Date 03/24/23 Plan of Care End Date 06/23/23 Therapeutic Interventions Therapeutic Interventions Home Exercise Program,Manual Therapy,Neuromuscular Re- education,Self-Care/Home Management,Soft Tissue Mobilization,Taping, Therapeutic Activities, Therapeutic Exercises Modalities Cold Pack/Ice Massage,Electric Stimulation,Hot Packs, Infrared Therapy,Traction- Mechanical,Ultrasound Next Visit Focus/Plan Next Note Type Treatment Note Next Visit Plan Floor transfer, continue therapeutic exercise progression
--- NOTE | 2023-04-19 08:53 | PT-OP ANOTE ---
cancelled due to sick
--- NOTE | 2023-04-21 16:00 | PT-OP ANOTE ---
Addendum entered and electronically signed by Tanna Rodríguez, INOCENCIA 04/23/23 15:33: Pt texted on 04/21 to cancel 04/22 appt, still feeling sick. Original Note: Pt cancelled 04/21 appt via text, still feeling sick.
--- NOTE | 2023-05-03 10:21 | PT.OTN ---
Current Diagnoses Radiculopathy, lumbar region (05/03/23) Other abnormalities of gait and mobility (05/03/23) Abnormal posture (05/03/23) Weakness (05/03/23) Physical Therapy Treatment Note PT-OP-A Visit Information Start: 03/23/23 15:55 Freq: Status: Active Protocol: Document 05/03/23 09:32 SAK (Rec: 05/03/23 10:20 SAK [id number]) Out-Patient Physical Therapy Visit Information Visit Information Visit Type Treatment Note Visit Start Time 09:33 Visit Stop Time 10:15 Total Visit Minutes 42 Visit Number 7 PT-OP-B Current Condition Start: 03/23/23 15:55 Freq: Status: Active Protocol: Document 05/03/23 09:32 SAK (Rec: 05/03/23 10:20 SAK [id number]) Current Condition History of Current Condition Onset Date 6-7 yrs Current Complaints hip and buttock pain with radiation right LE, difficulty walking History of Current Condition Gradual worsening of right sided LB, hip and posterior LE pain over the years. If really bad takes Ibuprofen or Alleve. Uses heat most of the time, minimal use of ice. Has had PT for pain. Also c/o unsteadiness with gait. Has seen pain doctor, had steroid injection. History of occasional falls. Occasional numbness right LE into foot; feeling of heaviness. No regular exercise routine; I'm always moving. Saw chiropractor. Reports fractured pelvis 2 years ago. PT-OP-C Subjective Start: 03/23/23 15:55 Freq: Status: Active Protocol: Document 05/03/23 09:32 SAK (Rec: 05/03/23 10:20 SAK [id number]) OP-PT Subjective Patient Comments Patient Comments Sick for 3 weeks. Gradually feeling better. Hasn't done much exercise. PT-OP-D Balance Start: 03/23/23 15:55 Freq: Status: Active Protocol: Document 03/24/23 09:33 SAK (Rec: 03/24/23 15:05 SAK [id number]) OP-PT Balance Assessment Sitting Balance Static Sitting Balance Ability Normal Dynamic Sitting Balance Ability Normal Standing Balance Static Standing Balance Ability Fair Dynamic Standing Balance Ability Fair Balance Tests Single Limb Standing Single Limb- Right 0 Single Limb- Left 0 Tandem Tandem Standing 8 Puente Fall Scale Copyright Permission PT-OP-H Neuro Start: 03/23/23 15:55 Freq: Status: Active Protocol: Document 03/24/23 09:33 SAK (Rec: 03/24/23 15:05 [facility] [id number]) Sensation Evaluation Gross Sensation Gross Sensation WNL PT-OP-J Posture/Palpation/Skin Start: 03/23/23 15:55 Freq: Status: Active Protocol: Document 03/24/23 09:33 SAK (Rec: 03/24/23 15:05 SAK [id number]) Palpation Assessment Location buttock Palpation Location right Palpation Findings Soft Tissue Tightness,Muscle Guarding,Tenderness paraspinals Palpation Location right Palpation Findings Muscle Guarding,Tenderness PT-OP-K Range of Motion Start: 03/23/23 15:55 Freq: Status: Active Protocol: Document 03/24/23 09:33 SAK (Rec: 03/24/23 15:05 [facility] [id number]) Lumbar Spine Range of Motion Lumbar Spine Active Testing Position Standing Flexion 40 Extension 15 Rotation Left 30 Rotation Right 30 Lateral Flexion Left 20 Lateral Flexion Right 30 ROM Limitations Soft Tissue Tightness Hip Goniometric Range of Motion Hip Right Flexion w/Knee Flexed 95 Straight Leg Raise 60 Extension 0 Abduction 40 Internal Rotation 30 External Rotation 50 Left Flexion w/Knee Flexed 95 Straight Leg Raise 55 Extension 0 Abduction 40 Internal Rotation 30 External Rotation 50 PT-OP-M Strength Start: 03/23/23 15:55 Freq: Status: Active Protocol: Document 03/24/23 09:33 SAK (Rec: 03/24/23 15:05 [facility] [id number]) Trunk Strength Trunk Manual Muscle Testing Flexion 3+ Fair+ Extension 3+ Fair+ Core Stabilization poor Hip Strength Hip Manual Muscle Testing Right Flexion (L2) 4+ Good+ Extension (S1) 4- Good- Abduction 4- Good- External Rotation 3+ Fair+ Internal Rotation 3+ Fair+ Left Flexion (L2) 4+ Good+ Extension (S1) 4- Good- Abduction 4- Good- External Rotation 3+ Fair+ Internal Rotation 4- Good- Knee Strength Knee Manual Muscle Testing Right Flexion (S2) 4+ Good+ Extension (L3) 4 Good Left Flexion (S2) 5 Normal Extension (L3) 5 Normal Ankle/Foot Strength Ankle and Foot Manual Muscle Testing Right Dorsiflexion (L4) 4 Good Plantarflexion (S1) 4 Good Left Dorsiflexion (L4) 4+ Good+ Plantarflexion (S1) 4+ Good+ PT-OP-Q Treatments Start: 03/23/23 15:55 Freq: Status: Active Protocol: Document 05/03/23 09:32 [facility] (Rec: 05/03/23 10:20 [facility] [id number]) Cardio Equipment Bicycle (Upright) Duration (Minutes) 8 Resistance 3 Seat Position 4 Other cues for upright posture Gym Equipment Cable Column (Body Solid) hamstring curl Resistance 30 Reps/Time 10x2 Shuttle Recovery Unilateral Squats Resistance 25 Reps/Time 10x2 Bilateral Squats Resistance 50 Shuttle Recovery Platform Stable Reps/Time 10x2 Therapeutic Exercises Supine Exercises extension drop test Supine Exercise Name not done today Bridge Supine Exercise Name cues for segmental Reps/Minutes 2x10 Sidelying Exercises clamshell Reps/Minutes 10x Comments cues for stacked hips and feet , small lift, core activation adduction drop test Comments neg right, hip abduction Reps/Minutes 10x Comments mod cues alignment and core stab Sitting Exercises hamstring curl Equipment Used L2 TB Reps/Minutes 10x Standing Exercises Paleoff press Equipment Used orange TB Reps/Minutes 10x split squats Equipment Used mirror Reps/Minutes 10x Comments mod cues alignment and gluteal activation PT-OP-R Modalities Start: 03/23/23 15:55 Freq: Status: Active Protocol: Document 05/03/23 09:32 [facility] (Rec: 05/03/23 10:20 [facility] [id number]) Electric Stimulation Electric Stimulation Interferential Current (IFC) Comments declined due to schedule PT-OP-T Assessment and Plan Start: 03/23/23 15:55 Freq: Status: Active Protocol: Document 05/03/23 09:32 [facility] (Rec: 05/03/23 10:20 [facility] [id number]) Physical Therapy Assessment Goals Four Impairment balance dysfunction Impairment at medium risk for falls, SLS 0, tandem standing bal 8 sec Short Term Goal (STG) Improve SLS to 10 sec tae and tandem standing balance to 30 sec STG Duration 05/11/23 Topographical Engineer Goal (LTG) Improve SLS to 15 sec tae and tandem standing bal to 45 sec to allow her to do all usual activities with decreased risk of falls. LTG Duration 06/23/23 Three Impairment muscle imbalances throughout spine, pelvis, and hips Short Term Goal (STG) Patient to be educated in progressive, individualized HEP for purposes of strengthening, flexbility, and postural stabilization STG Duration 05/11/23 Topographical Engineer Goal (LTG) Patient to be independent and compliant with HEP and demonstrate strength at least 4+/5 throughout and flexibility WNL LTG Duration 06/23/23 Two Impairment Oswestry disability index score 57% Short Term Goal (STG) decrease Oswestery score to no greater than 45% STG Duration 05/11/23 Topographical Engineer Goal (LTG) decrease Oswestry score to no greater than 25% as measure of improved activity tolerance and quality of life LTG Duration 06/23/23 One Impairment function-limiting pain right l /s, buttock, posterior right LE Impairment pain level 3-8/10 Short Term Goal (STG) Decrease pain to no greater than 4/10 with all usual activities STG Duration 05/11/23 Halfway Goal (LTG) Decrease pain to no greater than 2/10 with all usual activities LTG Duration 06/23/23 Assessment Summary Assessment Patient activity tolerance decreased, added sidelying hip ex and updated HEP with good tolerance. Physical Therapy Plan Frequency and Duration Frequency of Treatment 1x/Week Duration of treatment (weeks) 12 Plan of Care Start Date 03/24/23 Plan of Care End Date 06/23/23 Therapeutic Interventions Therapeutic Interventions Home Exercise Program,Manual Therapy,Neuromuscular Re- education,Self-Care/Home Management,Soft Tissue Mobilization,Taping, Therapeutic Activities, Therapeutic Exercises Modalities Cold Pack/Ice Massage,Electric Stimulation,Hot Packs, Infrared Therapy,Traction- Mechanical,Ultrasound Next Visit Focus/Plan Next Note Type Treatment Note Next Visit Plan Floor transfer, continue therapeutic exercise progression
--- NOTE | 2023-05-05 09:47 | PT.OTN ---
Current Diagnoses Radiculopathy, lumbar region (05/05/23) Other abnormalities of gait and mobility (05/05/23) Abnormal posture (05/05/23) Weakness (05/05/23) Physical Therapy Treatment Note PT-OP-A Visit Information Start: 03/23/23 15:55 Freq: Status: Active Protocol: Document 05/05/23 09:07 SP (Rec: 05/05/23 09:54 SP [id number]) Out-Patient Physical Therapy Visit Information Visit Information Visit Type Treatment Note Visit Start Time 09:07 Visit Stop Time 09:47 Total Visit Minutes 40 Visit Number 8 Number of PERSONAL INVESTMENT ADVISER Visits 1 Evaluation Information Evaluation Date 03/24/23 PT-OP-B Current Condition Start: 03/23/23 15:55 Freq: Status: Active Protocol: Document 05/03/23 09:32 SAK (Rec: 05/03/23 10:20 SAK [id number]) Current Condition History of Current Condition Onset Date 6-7 yrs Current Complaints hip and buttock pain with radiation right LE, difficulty walking History of Current Condition Gradual worsening of right sided LB, hip and posterior LE pain over the years. If really bad takes Ibuprofen or Alleve. Uses heat most of the time, minimal use of ice. Has had PT for pain. Also c/o unsteadiness with gait. Has seen pain doctor, had steroid injection. History of occasional falls. Occasional numbness right LE into foot; feeling of heaviness. No regular exercise routine; I'm always moving. Saw chiropractor. Reports fractured pelvis 2 years ago. PT-OP-C Subjective Start: 03/23/23 15:55 Freq: Status: Active Protocol: Document 05/05/23 09:07 SP (Rec: 05/05/23 09:54 SP [id number]) OP-PT Subjective Patient Comments Patient Comments Pt reports still recovering from being sick. She reports very little sore ness after last tx but subsided pretty quickly. She states her R leg gets cranky at times. PT-OP-D Balance Start: 03/23/23 15:55 Freq: Status: Active Protocol: Document 03/24/23 09:33 SAK (Rec: 03/24/23 15:05 SAK [id number]) OP-PT Balance Assessment Sitting Balance Static Sitting Balance Ability Normal Dynamic Sitting Balance Ability Normal Standing Balance Static Standing Balance Ability Fair Dynamic Standing Balance Ability Fair Balance Tests Single Limb Standing Single Limb- Right 0 Single Limb- Left 0 Tandem Tandem Standing 8 Puente Fall Scale Copyright Permission PT-OP-H Neuro Start: 03/23/23 15:55 Freq: Status: Active Protocol: Document 03/24/23 09:33 SAK (Rec: 03/24/23 15:05 [facility] [id number]) Sensation Evaluation Gross Sensation Gross Sensation WNL PT-OP-J Posture/Palpation/Skin Start: 03/23/23 15:55 Freq: Status: Active Protocol: Document 03/24/23 09:33 SAK (Rec: 03/24/23 15:05 SAK [id number]) Palpation Assessment Location buttock Palpation Location right Palpation Findings Soft Tissue Tightness,Muscle Guarding,Tenderness paraspinals Palpation Location right Palpation Findings Muscle Guarding,Tenderness PT-OP-K Range of Motion Start: 03/23/23 15:55 Freq: Status: Active Protocol: Document 03/24/23 09:33 SAK (Rec: 03/24/23 15:05 [facility] [id number]) Lumbar Spine Range of Motion Lumbar Spine Active Testing Position Standing Flexion 40 Extension 15 Rotation Left 30 Rotation Right 30 Lateral Flexion Left 20 Lateral Flexion Right 30 ROM Limitations Soft Tissue Tightness Hip Goniometric Range of Motion Hip Right Flexion w/Knee Flexed 95 Straight Leg Raise 60 Extension 0 Abduction 40 Internal Rotation 30 External Rotation 50 Left Flexion w/Knee Flexed 95 Straight Leg Raise 55 Extension 0 Abduction 40 Internal Rotation 30 External Rotation 50 PT-OP-M Strength Start: 03/23/23 15:55 Freq: Status: Active Protocol: Document 03/24/23 09:33 SAK (Rec: 03/24/23 15:05 [facility] [id number]) Trunk Strength Trunk Manual Muscle Testing Flexion 3+ Fair+ Extension 3+ Fair+ Core Stabilization poor Hip Strength Hip Manual Muscle Testing Right Flexion (L2) 4+ Good+ Extension (S1) 4- Good- Abduction 4- Good- External Rotation 3+ Fair+ Internal Rotation 3+ Fair+ Left Flexion (L2) 4+ Good+ Extension (S1) 4- Good- Abduction 4- Good- External Rotation 3+ Fair+ Internal Rotation 4- Good- Knee Strength Knee Manual Muscle Testing Right Flexion (S2) 4+ Good+ Extension (L3) 4 Good Left Flexion (S2) 5 Normal Extension (L3) 5 Normal Ankle/Foot Strength Ankle and Foot Manual Muscle Testing Right Dorsiflexion (L4) 4 Good Plantarflexion (S1) 4 Good Left Dorsiflexion (L4) 4+ Good+ Plantarflexion (S1) 4+ Good+ PT-OP-Q Treatments Start: 03/23/23 15:55 Freq: Status: Active Protocol: Document 05/05/23 09:07 SP (Rec: 05/05/23 09:54 SP [id number]) Cardio Equipment Bicycle (Upright) Duration (Minutes) 8 Resistance 3 Seat Position 4 Other cues for upright posture Therapeutic Exercises Sidelying Exercises clamshell Sidelying Exercise Name HEP reviewed Side bilateral Resistance AROM Reps/Minutes x15- pause end range hold awareness stab Comments Improved TA/ less wobble, good stacked alignment hip abduction Sidelying Exercise Name HEP reviewed Side bilateral Equipment Used leg straight Reps/Minutes x15 Comments Improved TA/ less wobble, good stacked alignment Standing Exercises Paleoff press Standing Exercise Name added to HEP Side bilateral Equipment Used orange TB Reps/Minutes 10x Comments cued soft knee, tall posture, press out front navel resisted sidestepping Standing Exercise Name HEP reviewed HEP Side bilateral Resistance orange band Reps/Minutes 10 ft x2.5 laps Comments cued central postural, clearance and slow eccentric trialing LE row, shld ext Standing Exercise Name HEP reviewed Side bilateral Equipment Used L2 TB ext, L3 green rows Reps/Minutes x15 each Comments each, occ cues for no UT recruitment split squats Standing Exercise Name HEP reviewed Side bilateral Resistance UEs on //bars Equipment Used mirror, foam oval pad floor under back knee Reps/Minutes 10x Comments Mod cues for alignment, improved hip hinge with back knee bend toward pad PT-OP-R Modalities Start: 03/23/23 15:55 Freq: Status: Active Protocol: Document 05/03/23 09:32 SAK (Rec: 05/03/23 10:20 SAK [id number]) Electric Stimulation Electric Stimulation Interferential Current (IFC) Comments declined due to schedule PT-OP-T Assessment and Plan Start: 03/23/23 15:55 Freq: Status: Active Protocol: Document 05/05/23 09:07 SP (Rec: 05/05/23 09:54 SP [id number]) Physical Therapy Assessment Goals Four Impairment balance dysfunction Impairment at medium risk for falls, SLS 0, tandem standing bal 8 sec Short Term Goal (STG) Improve SLS to 10 sec tae and tandem standing balance to 30 sec STG Duration 05/11/23 [facility] Goal (LTG) Improve SLS to 15 sec tae and tandem standing bal to 45 sec to allow her to do all usual activities with decreased risk of falls. LTG Duration 06/23/23 Three Impairment muscle imbalances throughout spine, pelvis, and hips Short Term Goal (STG) Patient to be educated in progressive, individualized HEP for purposes of strengthening, flexbility, and postural stabilization STG Duration 05/11/23 [facility] Goal (LTG) Patient to be independent and compliant with HEP and demonstrate strength at least 4+/5 throughout and flexibility WNL LTG Duration 06/23/23 Two Impairment Oswestry disability index score 57% Short Term Goal (STG) decrease Oswestery score to no greater than 45% STG Duration 05/11/23 [facility] Goal (LTG) decrease Oswestry score to no greater than 25% as measure of improved activity tolerance and quality of life LTG Duration 06/23/23 One Impairment function-limiting pain right l /s, buttock, posterior right LE Impairment pain level 3-8/10 Short Term Goal (STG) Decrease pain to no greater than 4/10 with all usual activities STG Duration 05/11/23 [facility] Goal (LTG) Decrease pain to no greater than 2/10 with all usual activities LTG Duration 06/23/23 Assessment Summary Assessment Pt improved self correction trunk alignment during sidelying ex and mod cues with use oval pad under back knee for proper form hip hinge and front knee behind toe and back knee flexion during split squat, reported quad more than glut fac. Physical Therapy Plan Frequency and Duration Frequency of Treatment 1x/Week Duration of treatment (weeks) 12 Plan of Care Start Date 03/24/23 Plan of Care End Date 06/23/23 Therapeutic Interventions Therapeutic Interventions Home Exercise Program,Manual Therapy,Neuromuscular Re- education,Self-Care/Home Management,Soft Tissue Mobilization,Taping, Therapeutic Activities, Therapeutic Exercises Modalities Cold Pack/Ice Massage,Electric Stimulation,Hot Packs, Infrared Therapy,Traction- Mechanical,Ultrasound Next Visit Focus/Plan Next Note Type Treatment Note Next Visit Plan Next tx: reassess Floor transfer (does at home with HEP on floor), continue therapeutic exercise progression. Add hurdles for functional SLS balance strengthening.
--- NOTE | 2023-05-17 09:45 | PT.OTN ---
Current Diagnoses Radiculopathy, lumbar region (05/17/23) Other abnormalities of gait and mobility (05/17/23) Abnormal posture (05/17/23) Weakness (05/17/23) Physical Therapy Treatment Note PT-OP-A Visit Information Start: 03/23/23 15:55 Freq: Status: Active Protocol: Document 05/17/23 09:06 SP (Rec: 05/17/23 09:48 SP [id number]) Out-Patient Physical Therapy Visit Information Visit Information Visit Type Treatment Note Visit Start Time 09:06 Visit Stop Time 09:45 Total Visit Minutes 39 Visit Number 9 Number of [employer]ADER Visits 2 PT-OP-B Current Condition Start: 03/23/23 15:55 Freq: Status: Active Protocol: Document 05/03/23 09:32 SAK (Rec: 05/03/23 10:20 SAK [id number]) Current Condition History of Current Condition Onset Date 6-7 yrs Current Complaints hip and buttock pain with radiation right LE, difficulty walking History of Current Condition Gradual worsening of right sided LB, hip and posterior LE pain over the years. If really bad takes Ibuprofen or Alleve. Uses heat most of the time, minimal use of ice. Has had PT for pain. Also c/o unsteadiness with gait. Has seen pain doctor, had steroid injection. History of occasional falls. Occasional numbness right LE into foot; feeling of heaviness. No regular exercise routine; I'm always moving. Saw chiropractor. Reports fractured pelvis 2 years ago. PT-OP-C Subjective Start: 03/23/23 15:55 Freq: Status: Active Protocol: Document 05/17/23 09:06 SP (Rec: 05/17/23 09:48 SP [id number]) OP-PT Subjective Patient Comments Patient Comments Pt reports she notices more SOB with vacumming, changing sheets sometimes, stair mgt and not sure why. She states compliant with HEP. She does do her exercises on the floor at home and feels comfortable getting on/off floor but can assess if any edcues needed. PT-OP-D Balance Start: 03/23/23 15:55 Freq: Status: Active Protocol: Document 03/24/23 09:33 SAK (Rec: 03/24/23 15:05 SAK [id number]) OP-PT Balance Assessment Sitting Balance Static Sitting Balance Ability Normal Dynamic Sitting Balance Ability Normal Standing Balance Static Standing Balance Ability Fair Dynamic Standing Balance Ability Fair Balance Tests Single Limb Standing Single Limb- Right 0 Single Limb- Left 0 Tandem Tandem Standing 8 Puente Fall Scale Copyright Permission PT-OP-H Neuro Start: 03/23/23 15:55 Freq: Status: Active Protocol: Document 03/24/23 09:33 SAK (Rec: 03/24/23 15:05 SAK [id number]) Sensation Evaluation Gross Sensation Gross Sensation WNL PT-OP-J Posture/Palpation/Skin Start: 03/23/23 15:55 Freq: Status: Active Protocol: Document 03/24/23 09:33 SAK (Rec: 03/24/23 15:05 SAK [id number]) Palpation Assessment Location buttock Palpation Location right Palpation Findings Soft Tissue Tightness,Muscle Guarding,Tenderness paraspinals Palpation Location right Palpation Findings Muscle Guarding,Tenderness PT-OP-K Range of Motion Start: 03/23/23 15:55 Freq: Status: Active Protocol: Document 03/24/23 09:33 SAK (Rec: 03/24/23 15:05 [facility] [id number]) Lumbar Spine Range of Motion Lumbar Spine Active Testing Position Standing Flexion 40 Extension 15 Rotation Left 30 Rotation Right 30 Lateral Flexion Left 20 Lateral Flexion Right 30 ROM Limitations Soft Tissue Tightness Hip Goniometric Range of Motion Hip Right Flexion w/Knee Flexed 95 Straight Leg Raise 60 Extension 0 Abduction 40 Internal Rotation 30 External Rotation 50 Left Flexion w/Knee Flexed 95 Straight Leg Raise 55 Extension 0 Abduction 40 Internal Rotation 30 External Rotation 50 PT-OP-M Strength Start: 03/23/23 15:55 Freq: Status: Active Protocol: Document 03/24/23 09:33 SAK (Rec: 03/24/23 15:05 [facility] [id number]) Trunk Strength Trunk Manual Muscle Testing Flexion 3+ Fair+ Extension 3+ Fair+ Core Stabilization poor Hip Strength Hip Manual Muscle Testing Right Flexion (L2) 4+ Good+ Extension (S1) 4- Good- Abduction 4- Good- External Rotation 3+ Fair+ Internal Rotation 3+ Fair+ Left Flexion (L2) 4+ Good+ Extension (S1) 4- Good- Abduction 4- Good- External Rotation 3+ Fair+ Internal Rotation 4- Good- Knee Strength Knee Manual Muscle Testing Right Flexion (S2) 4+ Good+ Extension (L3) 4 Good Left Flexion (S2) 5 Normal Extension (L3) 5 Normal Ankle/Foot Strength Ankle and Foot Manual Muscle Testing Right Dorsiflexion (L4) 4 Good Plantarflexion (S1) 4 Good Left Dorsiflexion (L4) 4+ Good+ Plantarflexion (S1) 4+ Good+ PT-OP-Q Treatments Start: 03/23/23 15:55 Freq: Status: Active Protocol: Document 05/17/23 09:06 SP (Rec: 05/17/23 09:48 SP [id number]) Cardio Equipment Recumbent Elliptical (Biodex) Duration (Minutes) 1 Resistance 3 Seat Position 4 Other feeling it in my thighs, I have an upright bike home, DC Bicycle (Upright) Duration (Minutes) 6 Resistance 3 Seat Position 4 Other cues for upright posture Therapeutic Exercises Supine Exercises SKTC stretch Supine Exercise Name self does home Side bilateral Reps/Minutes 30SH Comments good form/stretch Bridge Supine Exercise Name starts segmental roll AROM, braced noted during lift/lower holds today Resistance AROM Reps/Minutes x10 reps, 10 reps 5SH Comments improved form, TA and painfree range Sidelying Exercises clamshell Sidelying Exercise Name HEP reviewed Side bilateral Resistance AROM Reps/Minutes 2x15 Comments cued stacked trunk alignment, TA draw in improved no LB discomfort hip abduction Sidelying Exercise Name HEP reviewed Side bilateral Equipment Used leg straight Reps/Minutes 2x10 Comments Improved TA/ less wobble LLE/ no RLE, good stacked alignment Standing Exercises resisted sidestepping Standing Exercise Name HEP reviewed HEP- lateral Side bilateral Resistance orange band Reps/Minutes 12 ft x2 laps Comments good form Therapeutic Activity Therapeutic Activity floor transfers Name on/off floor Reps/Minutes x2 reps Comments performs HEP on mat, stand> BUEs good slow descent to sit on floor<>supine. Neuro Re-Education Treatment Balance Activities hurdles Details lateral- ( floor). fwd uneven surfaces Surface 6 hurdles, oval foam, pods Comments SBA. pods CG- 5%A initially. PT-OP-R Modalities Start: 03/23/23 15:55 Freq: Status: Active Protocol: Document 05/03/23 09:32 SAK (Rec: 05/03/23 10:20 SAK [id number]) Electric Stimulation Electric Stimulation Interferential Current (IFC) Comments declined due to schedule PT-OP-T Assessment and Plan Start: 03/23/23 15:55 Freq: Status: Active Protocol: Document 05/17/23 09:06 SP (Rec: 05/17/23 09:48 SP [id number]) Physical Therapy Assessment Goals Four Impairment balance dysfunction Impairment at medium risk for falls, SLS 0, tandem standing bal 8 sec Short Term Goal (STG) Improve SLS to 10 sec tae and tandem standing balance to 30 sec STG Duration 05/11/23 [facility] Goal (LTG) Improve SLS to 15 sec tae and tandem standing bal to 45 sec to allow her to do all usual activities with decreased risk of falls. LTG Duration 06/23/23 Three Impairment muscle imbalances throughout spine, pelvis, and hips Short Term Goal (STG) Patient to be educated in progressive, individualized HEP for purposes of strengthening, flexbility, and postural stabilization STG Duration 05/11/23 [facility] Goal (LTG) Patient to be independent and compliant with HEP and demonstrate strength at least 4+/5 throughout and flexibility WNL LTG Duration 06/23/23 Two Impairment Oswestry disability index score 57% Short Term Goal (STG) decrease Oswestery score to no greater than 45% STG Duration 05/11/23 [facility] Goal (LTG) decrease Oswestry score to no greater than 25% as measure of improved activity tolerance and quality of life LTG Duration 06/23/23 One Impairment function-limiting pain right l /s, buttock, posterior right LE Impairment pain level 3-8/10 Short Term Goal (STG) Decrease pain to no greater than 4/10 with all usual activities STG Duration 05/11/23 [facility] Goal (LTG) Decrease pain to no greater than 2/10 with all usual activities LTG Duration 06/23/23 Assessment Summary Assessment Pt good demonstration on/off floor to complete HEP. Pt was able to tolerate increase progression bridge holds, decrease need for segmental roll as needed for core support to back. She improves more TA stability during clamshell and side ABD and resisted side stepping this tx . Pt improved stability less to no UE support and postural corrections with reps during uneven surface stepping hurdles/foam/pods this tx. Physical Therapy Plan Frequency and Duration Frequency of Treatment 1x/Week Duration of treatment (weeks) 12 Plan of Care Start Date 03/24/23 Plan of Care End Date 06/23/23 Therapeutic Interventions Therapeutic Interventions Home Exercise Program,Manual Therapy,Neuromuscular Re- education,Self-Care/Home Management,Soft Tissue Mobilization,Taping, Therapeutic Activities, Therapeutic Exercises Modalities Cold Pack/Ice Massage,Electric Stimulation,Hot Packs, Infrared Therapy,Traction- Mechanical,Ultrasound Next Visit Focus/Plan Next Note Type Progress Note Next Visit Plan 10th visit PN next tx, add appts into Dec if needed. Next tx: continue therapeutic exercise progression on floor. Add hurdles for functional SLS balance strengthening.
--- NOTE | 2023-05-20 12:07 | PT.OTRE ---
Current Diagnoses Radiculopathy, lumbar region (05/20/23) Other abnormalities of gait and mobility (05/20/23) Abnormal posture (05/20/23) Weakness (05/20/23) Past Medical History (Last Updated 04/28/23 @ 15:36 by Erica Lomas DO) Actinic keratosis Balance problem Constipation Depression Dorsalgia Environmental allergies Fibromyalgia Hemorrhoids Hyperlipidemia Hypothyroidism Intercostal neuralgia Lumbar radiculopathy Lumbar spondylosis Nausea Nonscarring hair loss Osteoarthritis of right knee Osteopenia Osteoporosis Pelvic fracture Ribs, multiple fractures Right knee pain Spasm of thoracic back muscle Thoracic radiculopathy Surgical History (Last Reviewed 02/02/23 @ 09:39 by Abraham Pang MD) Status post appendectomy (1971) Status post delivery (1970) Status post colonoscopy (07/05/10) Status post hysterectomy with oophorectomy (1995) Visit Care Team Role Provider Type Erica Lomas DO Primary Care Provider Physician Specialty: Family Practice Address: [address] [place] [address] Email: [email or web address] Shannon Keene DO Family Provider Physician Specialty: Medical Address: [address] [place] [address], [address], [address] Email: [email or web address] Abraham Pang MD Attending Provider Physician Referring Provider Specialty: Anesthesiology Interventional Radiology Pain Management Address: [facility] [place], [address] Email: [email or web address] Physical Therapy Re-Evaluation PT-OP-A Visit Information Start: 03/23/23 15:55 Freq: Status: Active Protocol: Document 05/20/23 09:46 SAK (Rec: 05/20/23 10:31 SAK [id number]) Out-Patient Physical Therapy Visit Information Visit Information Visit Type Treatment Note Visit Start Time 09:47 Visit Stop Time 10:40 Total Visit Minutes 53 Visit Number 10 Number of SNACK STEWARD Visits 0 PT-OP-B Current Condition Start: 03/23/23 15:55 Freq: Status: Active Protocol: Document 05/03/23 09:32 SAK (Rec: 05/03/23 10:20 SAK [id number]) Current Condition History of Current Condition Onset Date 6-7 yrs Current Complaints hip and buttock pain with radiation right LE, difficulty walking History of Current Condition Gradual worsening of right sided LB, hip and posterior LE pain over the years. If really bad takes Ibuprofen or Alleve. Uses heat most of the time, minimal use of ice. Has had PT for pain. Also c/o unsteadiness with gait. Has seen pain doctor, had steroid injection. History of occasional falls. Occasional numbness right LE into foot; feeling of heaviness. No regular exercise routine; I'm always moving. Saw chiropractor. Reports fractured pelvis 2 years ago. PT-OP-C Subjective Start: 03/23/23 15:55 Freq: Status: Active Protocol: Document 05/20/23 09:46 SAK (Rec: 05/20/23 10:31 SAK [id number]) OP-PT Subjective Patient Comments Patient Comments Past few days 4-5/10 right sided hip and lateral leg. Stressful time of year. Reports feeling she is getting stronger, overall pain less intense, balance improving. PT-OP-D Balance Start: 03/23/23 15:55 Freq: Status: Active Protocol: Document 03/24/23 09:33 SAK (Rec: 03/24/23 15:05 [facility] [id number]) OP-PT Balance Assessment Sitting Balance Static Sitting Balance Ability Normal Dynamic Sitting Balance Ability Normal Standing Balance Static Standing Balance Ability Fair Dynamic Standing Balance Ability Fair Balance Tests Single Limb Standing Single Limb- Right 0 Single Limb- Left 0 Tandem Tandem Standing 8 Puente Fall Scale Copyright Permission Cindi JM, Cindi RM, Montez SJ. Development of a scale to identify the fall- prone patient. Can J Aging 1989;8;366-7. Minerva Puente (2009). Preventing patient falls. (2nd ed). [place]: [place]. PT-OP-H Neuro Start: 03/23/23 15:55 Freq: Status: Active Protocol: Document 03/24/23 09:33 SAK (Rec: 03/24/23 15:05 [facility] [id number]) Sensation Evaluation Gross Sensation Gross Sensation WNL PT-OP-J Posture/Palpation/Skin Start: 03/23/23 15:55 Freq: Status: Active Protocol: Document 03/24/23 09:33 SAK (Rec: 03/24/23 15:05 SAK [id number]) Palpation Assessment Location buttock Palpation Location right Palpation Findings Soft Tissue Tightness,Muscle Guarding,Tenderness paraspinals Palpation Location right Palpation Findings Muscle Guarding,Tenderness PT-OP-K Range of Motion Start: 03/23/23 15:55 Freq: Status: Active Protocol: Document 03/24/23 09:33 SAK (Rec: 03/24/23 15:05 SAK [id number]) Lumbar Spine Range of Motion Lumbar Spine Active Testing Position Standing Flexion 40 Extension 15 Rotation Left 30 Rotation Right 30 Lateral Flexion Left 20 Lateral Flexion Right 30 ROM Limitations Soft Tissue Tightness Hip Goniometric Range of Motion Hip Measured in Degrees Right Flexion w/Knee Flexed 95 Straight Leg Raise 60 Extension 0 Abduction 40 Internal Rotation 30 External Rotation 50 Left Flexion w/Knee Flexed 95 Straight Leg Raise 55 Extension 0 Abduction 40 Internal Rotation 30 External Rotation 50 PT-OP-M Strength Start: 03/23/23 15:55 Freq: Status: Active Protocol: Document 03/24/23 09:33 SAK (Rec: 03/24/23 15:05 [facility] [id number]) Trunk Strength Trunk Manual Muscle Testing Flexion 3+ Fair+ Extension 3+ Fair+ Core Stabilization poor Hip Strength Hip Manual Muscle Testing Right Flexion (L2) 4+ Good+ Extension (S1) 4- Good- Abduction 4- Good- External Rotation 3+ Fair+ Internal Rotation 3+ Fair+ Left Flexion (L2) 4+ Good+ Extension (S1) 4- Good- Abduction 4- Good- External Rotation 3+ Fair+ Internal Rotation 4- Good- Knee Strength Knee Manual Muscle Testing Right Flexion (S2) 4+ Good+ Extension (L3) 4 Good Left Flexion (S2) 5 Normal Extension (L3) 5 Normal Ankle/Foot Strength Ankle and Foot Manual Muscle Testing Right Dorsiflexion (L4) 4 Good Plantarflexion (S1) 4 Good Left Dorsiflexion (L4) 4+ Good+ Plantarflexion (S1) 4+ Good+ PT-OP-Q Treatments Start: 03/23/23 15:55 Freq: Status: Active Protocol: Document 05/20/23 09:46 SAK (Rec: 05/20/23 10:31 SAK [id number]) Cardio Equipment Bicycle (Upright) Duration (Minutes) 8 Resistance 3 Seat Position 4 Other cues for upright posture Gym Equipment Shuttle Balance chains red Details bal and wt shift WBOS f/b, side Reps/Duration 8 min Therapeutic Exercises Supine Exercises SKTC stretch Reps/Minutes 1x30 IT band stretch Equipment Used strap Reps/Minutes 2x30 Bridge Supine Exercise Name starts segmental roll AROM, braced noted during lift/lower holds today Resistance AROM Reps/Minutes x10 reps, 10 reps 5SH Comments improved form, TA and painfree range Figure 4 Reps/Minutes 2x30 piriformis stretch Supine Exercise Name knee to opposite shoulder Reps/Minutes 2x30 hamstring stretch Equipment Used strap Reps/Minutes 2x30 overhead stretch Reps/Minutes 1x30 Comments cues for lengthening sides Sidelying Exercises hip abduction Sidelying Exercise Name HEP reviewed Side bilateral Equipment Used leg straight Reps/Minutes 2x10 Comments Improved TA/ less wobble LLE/ no RLE, good stacked alignment Standing Exercises Paleoff press Standing Exercise Name added to HEP Side bilateral Equipment Used orange TB Reps/Minutes 10x Comments cued soft knee, tall posture, press out front navel Other Exercises child's pose Other Exercise Name fwd and lateral Reps/Minutes 2x30 cat/cow Reps/Minutes 5x Neuro Re-Education Treatment Balance Activities tandem stand Reps/Duration 2x ea Comments cues for no UE support SLS Reps/Duration 4x each side Comments cues for no UE support hurdles Details lateral- ( floor). fwd uneven surfaces Surface 6 hurdles, oval foam, pods Comments SBA. pods CG- 5%A initially. Self-Care/Home Management Treatment Education Other Education modify cat/cow to seated for improved tolerance, HO issued PT-OP-R Modalities Start: 03/23/23 15:55 Freq: Status: Active Protocol: Document 05/03/23 09:32 [facility] (Rec: 05/03/23 10:20 [facility] [id number]) Electric Stimulation Electric Stimulation Interferential Current (IFC) Comments declined due to schedule PT-OP-T Assessment and Plan Start: 03/23/23 15:55 Freq: Status: Active Protocol: Document 05/20/23 09:46 [facility] (Rec: 05/20/23 10:31 SAK [id number]) Physical Therapy Assessment Goals Four Impairment balance dysfunction Impairment at medium risk for falls, SLS 0, tandem standing bal 8 sec Short Term Goal (STG) Improve SLS to 10 sec tae and tandem standing balance to 30 sec 05/20/23: SLS right 10 sec, left 14 sec tandem stand 30 sec goal met STG Duration goal met Usp Goal (LTG) Improve SLS to 15 sec tae and tandem standing bal to 45 sec to allow her to do all usual activities with decreased risk of falls. LTG Duration 06/23/23 Three Impairment muscle imbalances throughout spine, pelvis, and hips Short Term Goal (STG) Patient to be educated in progressive, individualized HEP for purposes of strengthening, flexbility, and postural stabilization STG Duration goal met Study Coordinator Goal (LTG) Patient to be independent and compliant with HEP and demonstrate strength at least 4+/5 throughout and flexibility WNL LTG Duration 06/23/23 Two Impairment Oswestry disability index score 57% Short Term Goal (STG) decrease Oswestery score to no greater than 45% 05/20/23: goal met 8% STG Duration 05/11/23 Study Coordinator Goal (LTG) decrease Oswestry score to no greater than 25% as measure of improved activity tolerance and quality of life LTG Duration goal met One Impairment function-limiting pain right l /s, buttock, posterior right LE Impairment pain level 3-8/10 Short Term Goal (STG) Decrease pain to no greater than 4/10 with all usual activities 05/20/23: no greater than 5/10 , goal progress STG Duration 05/11/23 Study Coordinator Goal (LTG) Decrease pain to no greater than 2/10 with all usual activities LTG Duration 06/23/23 Progress Towards Goals Progress Towards Goals Progressing Toward Goals Assessment Summary Assessment Good progress toward goals as noted above with dec pain, improved strength, balance, and safety. Feel she would benefit from a few further PT visits to help her to fully achieve her PT goals. Physical Therapy Plan Frequency and Duration Frequency of Treatment 1x/Week Duration of treatment (weeks) 2 Plan of Care Start Date 05/20/23 Plan of Care End Date 06/03/23 Therapeutic Interventions Therapeutic Interventions Home Exercise Program,Manual Therapy,Neuromuscular Re- education,Self-Care/Home Management,Soft Tissue Mobilization,Taping, Therapeutic Activities, Therapeutic Exercises Modalities Cold Pack/Ice Massage,Electric Stimulation,Hot Packs, Infrared Therapy,Traction- Mechanical,Ultrasound Next Visit Focus/Plan Next Note Type Treatment Note Next Visit Plan Continue PT to help patient fully achieve her PT goals and return to usual activities with improved safety, ease, and decreased pain.
--- NOTE | 2023-05-20 12:07 | PT.OPPOC ---
Physical, Occupational & Speech Therapy At [facility] Current Diagnoses Radiculopathy, lumbar region (05/20/23) Other abnormalities of gait and mobility (05/20/23) Abnormal posture (05/20/23) Weakness (05/20/23) Visit Care Team Role Provider Type Erica Lomas DO Primary Care Provider Physician Specialty: Family Practice Address: [address] [place] [address], [facility] [address], [place], [address] Email: [email or web address] Shannon Keene DO Family Provider Physician Specialty: Medical Address: [address] [place] [address], [facility] [address], [place], [address] Email: [email or web address] Abraham Pang MD Attending Provider Physician Referring Provider Specialty: Anesthesiology Interventional Radiology Pain Management Address: [address] [place] [address], [address] Email: [email or web address] Plan Of Care PT-OP-T Assessment and Plan Start: 03/23/23 15:55 Freq: Status: Active Protocol: Document 05/20/23 09:46 SAK (Rec: 05/20/23 10:31 SAK [id number]) Physical Therapy Assessment Goals Four Impairment balance dysfunction Impairment at medium risk for falls, SLS 0, tandem standing bal 8 sec Short Term Goal (STG) Improve SLS to 10 sec tae and tandem standing balance to 30 sec 05/20/23: SLS right 10 sec, left 14 sec tandem stand 30 sec goal met STG Duration goal met Air Deodorizer Servicer Goal (LTG) Improve SLS to 15 sec tae and tandem standing bal to 45 sec to allow her to do all usual activities with decreased risk of falls. LTG Duration 06/23/23 Three Impairment muscle imbalances throughout spine, pelvis, and hips Short Term Goal (STG) Patient to be educated in progressive, individualized HEP for purposes of strengthening, flexbility, and postural stabilization STG Duration goal met Air Deodorizer Servicer Goal (LTG) Patient to be independent and compliant with HEP and demonstrate strength at least 4+/5 throughout and flexibility WNL LTG Duration 06/23/23 Two Impairment Oswestry disability index score 57% Short Term Goal (STG) decrease Oswestery score to no greater than 45% 05/20/23: goal met 8% STG Duration 05/11/23 Air Deodorizer Servicer Goal (LTG) decrease Oswestry score to no greater than 25% as measure of improved activity tolerance and quality of life LTG Duration goal met One Impairment function-limiting pain right l /s, buttock, posterior right LE Impairment pain level 3-8/10 Short Term Goal (STG) Decrease pain to no greater than 4/10 with all usual activities 05/20/23: no greater than 5/10 , goal progress STG Duration 05/11/23 Air Deodorizer Servicer Goal (LTG) Decrease pain to no greater than 2/10 with all usual activities LTG Duration 06/23/23 Progress Towards Goals Progress Towards Goals Progressing Toward Goals Assessment Summary Assessment Good progress toward goals as noted above with dec pain, improved strength, balance, and safety. Feel she would benefit from a few further PT visits to help her to fully achieve her PT goals. Physical Therapy Plan Frequency and Duration Frequency of Treatment 1x/Week Duration of treatment (weeks) 2 Plan of Care Start Date 05/20/23 Plan of Care End Date 06/03/23 Therapeutic Interventions Therapeutic Interventions Home Exercise Program,Manual Therapy,Neuromuscular Re- education,Self-Care/Home Management,Soft Tissue Mobilization,Taping, Therapeutic Activities, Therapeutic Exercises Modalities Cold Pack/Ice Massage,Electric Stimulation,Hot Packs, Infrared Therapy,Traction- Mechanical,Ultrasound Next Visit Focus/Plan Next Note Type Treatment Note Next Visit Plan Continue PT to help patient fully achieve her PT goals and return to usual activities with improved safety, ease, and decreased pain. Plan of Care Dates Plan of Care Start Date 05/20/23 Plan of Care End Date 06/03/23 Electronically Signed by: Scarlet Mcginnis, PT 05/20/23 8690 If you are in agreement with this Plan of Care, please return a signed and dated copy. I have reviewed this Plan of Care and certify that the skilled therapy services above are required to meet the patient?s needs. Physician Signature Date Printed Name and Credentials Clinical Instructor Signature Printed Name and Credentials
--- NOTE | 2023-05-31 07:54 | PT-OP ANOTE ---
Pt texted cancelling appt<24 hrs, no reasons given. SECRET SERVICE AGENT called left voice message inquiring of reasoning of cancel and importance of attendance to assist progress in PT. Discussed next appt is last appt scheduled and end of POC and importance of attending to complete PN.
--- NOTE | 2023-06-01 08:12 | PT-OP ANOTE ---
patient ill, exposed to Covid, requested discharge.
--- NOTE | 2023-06-01 08:12 | PT.OPDS ---
Current Diagnoses Radiculopathy, lumbar region (05/20/23) Other abnormalities of gait and mobility (05/20/23) Abnormal posture (05/20/23) Weakness (05/20/23) Visit Care Team Role Provider Type Erica Lomas DO Primary Care Provider Physician Specialty: Family Practice Address: [address] [place] [address], [address] Email: [email or web address] Shannon Keene DO Family Provider Physician Specialty: Medical Address: [address] [place] [address], [address], [place], [address] Email: [email or web address] Abraham Pang MD Attending Provider Physician Referring Provider Specialty: Anesthesiology Interventional Radiology Pain Management Address: [facility] [place], [address] Email: [email or web address] Visit Number Visit Number 10 Discharge Summary PT-OP-B Current Condition Start: 03/23/23 15:55 Freq: Status: Active Protocol: Document 05/03/23 09:32 SAK (Rec: 05/03/23 10:20 SAK [id number]) Current Condition History of Current Condition Onset Date 6-7 yrs Current Complaints hip and buttock pain with radiation right LE, difficulty walking History of Current Condition Gradual worsening of right sided LB, hip and posterior LE pain over the years. If really bad takes Ibuprofen or Alleve. Uses heat most of the time, minimal use of ice. Has had PT for pain. Also c/o unsteadiness with gait. Has seen pain doctor, had steroid injection. History of occasional falls. Occasional numbness right LE into foot; feeling of heaviness. No regular exercise routine; I'm always moving. Saw chiropractor. Reports fractured pelvis 2 years ago. PT-OP-C Subjective Start: 03/23/23 15:55 Freq: Status: Active Protocol: Document 05/20/23 09:46 SAK (Rec: 05/20/23 10:31 SAK [id number]) OP-PT Subjective Patient Comments Patient Comments Past few days 4-5/10 right sided hip and lateral leg. Stressful time of year. Reports feeling she is getting stronger, overall pain less intense, balance improving. PT-OP-D Balance Start: 03/23/23 15:55 Freq: Status: Active Protocol: Document 03/24/23 09:33 SAK (Rec: 03/24/23 15:05 [facility] [id number]) OP-PT Balance Assessment Sitting Balance Static Sitting Balance Ability Normal Dynamic Sitting Balance Ability Normal Standing Balance Static Standing Balance Ability Fair Dynamic Standing Balance Ability Fair Balance Tests Single Limb Standing Single Limb- Right 0 Single Limb- Left 0 Tandem Tandem Standing 8 Puente Fall Scale Copyright Permission PT-OP-H Neuro Start: 03/23/23 15:55 Freq: Status: Active Protocol: Document 03/24/23 09:33 SAK (Rec: 03/24/23 15:05 [facility] [id number]) Sensation Evaluation Gross Sensation Gross Sensation WNL PT-OP-J Posture/Palpation/Skin Start: 03/23/23 15:55 Freq: Status: Active Protocol: Document 03/24/23 09:33 SAK (Rec: 03/24/23 15:05 [facility] [id number]) Palpation Assessment Location buttock Palpation Location right Palpation Findings Soft Tissue Tightness,Muscle Guarding,Tenderness paraspinals Palpation Location right Palpation Findings Muscle Guarding,Tenderness PT-OP-K Range of Motion Start: 03/23/23 15:55 Freq: Status: Active Protocol: Document 03/24/23 09:33 SAK (Rec: 03/24/23 15:05 [facility] [id number]) Lumbar Spine Range of Motion Lumbar Spine Active Testing Position Standing Flexion 40 Extension 15 Rotation Left 30 Rotation Right 30 Lateral Flexion Left 20 Lateral Flexion Right 30 ROM Limitations Soft Tissue Tightness Hip Goniometric Range of Motion Hip Right Flexion w/Knee Flexed 95 Straight Leg Raise 60 Extension 0 Abduction 40 Internal Rotation 30 External Rotation 50 Left Flexion w/Knee Flexed 95 Straight Leg Raise 55 Extension 0 Abduction 40 Internal Rotation 30 External Rotation 50 PT-OP-M Strength Start: 03/23/23 15:55 Freq: Status: Active Protocol: Document 03/24/23 09:33 SAK (Rec: 03/24/23 15:05 [facility] [id number]) Trunk Strength Trunk Manual Muscle Testing Flexion 3+ Fair+ Extension 3+ Fair+ Core Stabilization poor Hip Strength Hip Manual Muscle Testing Right Flexion (L2) 4+ Good+ Extension (S1) 4- Good- Abduction 4- Good- External Rotation 3+ Fair+ Internal Rotation 3+ Fair+ Left Flexion (L2) 4+ Good+ Extension (S1) 4- Good- Abduction 4- Good- External Rotation 3+ Fair+ Internal Rotation 4- Good- Knee Strength Knee Manual Muscle Testing Right Flexion (S2) 4+ Good+ Extension (L3) 4 Good Left Flexion (S2) 5 Normal Extension (L3) 5 Normal Ankle/Foot Strength Ankle and Foot Manual Muscle Testing Right Dorsiflexion (L4) 4 Good Plantarflexion (S1) 4 Good Left Dorsiflexion (L4) 4+ Good+ Plantarflexion (S1) 4+ Good+ PT-OP-T Assessment and Plan Start: 03/23/23 15:55 Freq: Status: Active Protocol: Document 06/01/23 08:11 [email or web address] (Rec: 06/01/23 08:12 [facility] [id number]) Physical Therapy Plan Discharge Physical Therapy Discharge Comments patient ill, exposed to Covid, requested discharge.
== END 2023-06-02 13:29 | disposition home or self-care (01) ==
LOC: PHYS 09:45
PROVIDERS: Family Provider Family Medicine; PCP Family Medicine; Referring Provider Anesthesiology; Visit Provider Anesthesiology
DX: R26.89 Other abnormalities of gait and mobility (principal); M54.16 Radiculopathy, lumbar region; R53.1 Weakness; R29.3 Abnormal posture
CPT/HCPCS: 97014; 97110; 97112; 97162; 97535; G0283

== ENCOUNTER → 2023-05-30 13:16 | Outpatient (CLI) | payer MEDICARE, SELFPAY ==
[2023-05-30 14:12] LABS: Influenza A - CEPHEID Flu A NEGATIVE (NEGATIVE); Influenza B - CEPHEID Flu B NEGATIVE (NEGATIVE); Respiratory Syncytial Virus Negative (Negative)
[2023-05-30 14:14] LABS: COVID-19 CEPHEID 4-PLEX PCR Negative (Negative)
== END ==
PROVIDERS: Family Provider Family Medicine; PCP Family Medicine; Visit Provider Physician Assistant
DX: R05.9 Cough, unspecified (principal); Z20.822 Contact with and (suspected) exposure to COVID-19
CPT/HCPCS: 0241U

== ENCOUNTER → 2023-06-04 10:37 | Outpatient (CLI) | payer MEDICARE, SELFPAY ==
[2023-06-04 11:31] LABS: Influenza A - CEPHEID Flu A NEGATIVE (NEGATIVE); Influenza B - CEPHEID Flu B NEGATIVE (NEGATIVE); Respiratory Syncytial Virus Negative (Negative)
[2023-06-04 11:53] LABS: COVID-19 CEPHEID 4-PLEX PCR POSITIVE (Negative)
== END ==
PROVIDERS: Family Provider Family Medicine; PCP Family Medicine; Visit Provider Family Medicine
DX: Z20.822 Contact with and (suspected) exposure to COVID-19 (principal); R53.83 Other fatigue; R06.02 Shortness of breath
CPT/HCPCS: 0241U

== ENCOUNTER → 2023-09-30 08:49 | Outpatient (CLI) | payer MEDICARE, SELFPAY ==
[2023-09-30 10:31] LABS: Alanine Aminotransferase 17 IU/L (<35); Albumin 4.3 g/dL (3.5-5.0); Albumin Globulin Ratio 1.5 (1.0-2.8); Alkaline Phosphatase 71 U/L (38-126); Aspartate Aminotransferase 26 IU/L (14-36); BUN Creatinine Ratio 21.7 (6-22); Bilirubin Total 0.6 mg/dL (0.2-1.3); Blood Urea Nitrogen 18 mg/dL (7-17); Calcium 9.5 mg/dL (8.4-10.2); Carbon Dioxide 29 mmol/L (22-32); Chloride 110 mmol/L (98-107); Cholesterol 235 mg/dL (140-199); Estimated Glomerular Filt Rate > 60 mL/min (>60); Globulin 2.8 g/dL (1.7-4.1); Glucose 78 mg/dL (80-110); HDL Cholesterol 100 mg/dL (40-60); HEMOLYSIS < 15 (0-50); LDL Cholesterol Calculated 85 mg/dL (<100); Potassium 4.4 mmol/L (3.4-5.1); Sodium 144 mmol/L (137-145); Total Protein 7.1 g/dL (6.3-8.2); Triglycerides 248 mg/dL (35-150)
[2023-09-30 10:46] LABS: TSH w/ Reflex to FT4 < 0.02 uIU/mL (0.47-4.68)
[2023-09-30 11:35] LABS: Free T4, Direct Thyroxine 1.23 ng/dL (0.78-2.19)
== END ==
PROVIDERS: Family Provider Family Medicine; PCP Family Medicine; Referring Provider Family Medicine; Visit Provider Family Medicine
DX: Z00.00 Encounter for general adult medical examination without abnormal findings (principal); E78.5 Hyperlipidemia, unspecified; E03.9 Hypothyroidism, unspecified
CPT/HCPCS: 36415; 80053; 80061; 84439; 84443

== ENCOUNTER 2023-12-29 08:09 | Outpatient (CLI) | payer MEDICARE, SELFPAY ==
[2023-12-29 08:40] VITALS: BP 162/86; PULSE 80; RESP 16; TEMP 36.3; O2SAT 98
--- NOTE | 2023-12-29 09:00 | DI.RAD.S_ITS ---
PROCEDURE: PAIN L/S TRANSFORAMINAL INJECT INDICATIONS: RADICULOPATHY COMPARISON: [facility], , PAIN L/S TRANSFORAMINAL INJECT, 11/25/2022, 13:38. FINDINGS: Fluoroscopic spot filming was performed to verify placement of spinal needles at the L4-5 and L5-S1 level(s), as labeled on the films. Appropriate location(s) of the needle tip(s) was confirmed by injection of iodinated contrast. IMPRESSION: Fluoroscopic support for L4-5 and L5-S1 transforaminal epidural steroid injection. Please see separate procedure note for further details. Dictated by: Stan Taylor M.D. on 12/29/2023 at 12:16 Approved by: Stan Taylor M.D. on 12/29/2023 at 12:17
[2023-12-29 09:06] VITALS: BP 137/90; PULSE 79; RESP 17; O2SAT 100
[2023-12-29 09:10] VITALS: PULSE 69; RESP 21; O2SAT 100
[2023-12-29] MEDS: iopamidoL 15 ML VIAL 3 ML INJ (09:11)
[2023-12-29] MEDS: DEXAMETHASONE 10 MG/ML VIAL 20 MG INJ (09:12)
[2023-12-29 09:15] VITALS: BP 174/103; PULSE 72; RESP 19; O2SAT 100
[2023-12-29 09:20] VITALS: BP 172/101; PULSE 75; RESP 14; O2SAT 100
[2023-12-29 09:24] VITALS: BP 157/86; PULSE 78; RESP 15; O2SAT 99
--- NOTE | 2023-12-29 12:14 | P.PCN_ITS ---
Date/Time/Diagnoses Date of procedure: 12/29/23 Time of procedure: 09:00 Procedure Notes Physician: Abraham Pang Total Fluoroscopy time (seconds): 28 Total sedation minutes: 0 Procedure in detail & Post-procedure care: Right L4-5 and L5-S1 Transforaminal Epidural Steroid Injection Indications: Louise is presenting for treatment of lumbar radiculopathy with low back and leg pain. Preoperative diagnosis: Lumbar radiculopathy Postoperative diagnosis: Same Focused Examination: Ax3 Mood and affect are normal Vital Signs: VSS Consent: Following review of allergies and potential side effects/complications, including, but not necessarily limited to, infection, allergic reaction, local tissue breakdown, stroke, temporary or permanent nerve injury, paralysis, and possible , the patient indicated that they understood and agreed to proceed.? An informed consent document was signed by the patient, witnessed by a nurse and placed in the patient's chart.? Additionally, other treatment options including medications and physical therapy were reviewed with the patient. All questions were answered. Site was then marked. Anesthesia: Local Position: Prone Monitoring: NIBP, Pulse oximetry, 3 lead EKG Needle used: 22 gauge, 3.5 in inch spinal needle Contrast: Isovue 300M Injectate: 7.5 mg Dexamethasone mixed with 1% lidocaine 1 ml and normal saline 1 mL per site Technique: The skin was prepped with chloraprep and draped in a sterile fashion. Time out was performed as per protocol. Oxygen applied via NC. Skin and subcutaneous structures of the needle entry site were infiltrated with 3mL of lidocaine 1%. Under fluoroscopic guidance, using an ipsilateral oblique view,?a 22 gauge 3.5 inch needle was advanced to the base of the right L4?pedicle.? The needle was advanced to the superio-posterior aspect of the neural foramen under lateral view.? Oblique and AP views were rechecked. No paresthesias noted by the patient during needle placement. In AP view and utilizing real-time digital subtraction fluoroscopy, 2 ml contrast was slowly injected. Epidural spread was observed without evidence for intravascular nor intrathecal uptake. Contrast spread was seen craniocaudally. The above injectate was then administered without paresthesias and the needle was subsequently withdrawn. The above process was repeated for the right L5-S1 TF CAMILO. Band-Aids applied to injection sites. EBL: less than 1 ml Complications: None Post Procedure: Patient was taken to the recovery and monitored. The patient was provided a Pain Log to continue to record the patient's response to the target- specific procedure prior to the patient's follow-up visit with the referring physician. Patient was stable upon discharge. Detailed post procedure instructions were provided. Patient was asked to call in the event of worsening pain, fever, weakness, numbness or bladder or bowel incontinence.
== END 2023-12-29 09:31 | disposition home or self-care (01) ==
LOC: RAD 08:10
PROVIDERS: Family Provider Family Medicine; PCP Family Medicine; Referring Provider Anesthesiology; Visit Provider Anesthesiology
DX: M54.16 Radiculopathy, lumbar region (principal)
CPT/HCPCS: 64483; 64484; J1100

== ENCOUNTER 2024-07-15 19:23 | Emergency (ER) | payer MEDICARE, SELFPAY ==
[2024-07-15 19:51] VITALS: BP 106/64; PULSE 97; RESP 16; TEMP 36.8; O2SAT 95; BMI 22.4
--- NOTE | 2024-07-15 19:57 | DI.RAD.S_ITS ---
PROCEDURE: XR WRIST LT MIN 3V INDICATIONS: s/p fall TECHNIQUE: 4 views of the wrist were acquired. COMPARISON: None. FINDINGS: Bones: Mildly displaced intra-articular distal radius fracture. Minimally displaced ulnar styloid fracture. On lateral view, there also age-indeterminate small bone fragments around the carpals. Mild background degenerative changes. Soft tissues: Chondrocalcinosis. IMPRESSION: Mildly displaced intra-articular distal radius fracture and minimally displaced ulnar styloid fracture. These are acute. Age-indeterminate bone fragments are seen around the carpal bones on lateral view. Chondrocalcinosis. Dictated by: Reji Diallo M.D. on 07/15/2024 at 20:20 Approved by: Reji Diallo M.D. on 07/15/2024 at 20:21
--- NOTE | 2024-07-15 20:46 | ED_ITS ---
HPI - Fall General Chief Complaint: Fall Stated Complaint: fall, wrist injury, bleeding chin, no blood thinne Time Seen by Provider: 07/15/24 20:39 Source: patient Mode of arrival: Ambulatory Limitations: no limitations History of Present Illness HPI Narrative: Patient was an 79-year-old female here for evaluation of injuries that she sustained when she tripped and fell. States she was coming down a flight of [employer] airs and when she was about 2-3 stairs from the bottom she tripped and fell forward. She put her arms out in order to stop herself. Sustained an injury to her left wrist. She did hit her chin on the floor. No loose teeth or missing teeth. No neck pain. Did not hit her head. Not on anticoagulation. No left shoulder pain. No left elbow pain. Lower extremities unremarkable. She did sustain a cut to her chin. Related Data Previous Rx's Medication Instructions Recorded levothyroxine 125 mcg tablet 125 mcg PO DAILY #90 tabs 09/21/23 sertraline 100 mg tablet 150 mg (1.5 x 100 mg) PO QDAY #135 09/21/23 tabs simvastatin 40 mg tablet 40 mg PO BEDTIME #90 tabs 09/21/23 hydrocodone 5 mg-acetaminophen 325 1 tab PO Q4-6H PRN pain #10 tabs 07/15/24 mg tablet Allergies Allergy/AdvReac Type Severity Reaction Status Date / Time No Known Drug Allergies Allergy Verified 01/31/24 09:07 Review of Systems Review of Systems ROS Unobtainable: All systems reviewed & are unremarkable except as noted in HPI and below Patient History Medical History Lumbar spondylosis Dorsalgia Lumbar radiculopathy Encounter for subsequent annual wellness visit (AWV) in Medicare patient Balance problem Osteoarthritis of right knee Right knee pain Thoracic radiculopathy Intercostal neuralgia Ribs, multiple fractures Spasm of thoracic back muscle Nausea Environmental allergies Nonscarring hair loss Pelvic fracture Osteopenia Constipation Hypothyroidism Fibromyalgia Osteoporosis Hyperlipidemia Hemorrhoids Depression Actinic keratosis Surgical History Status post colonoscopy (07/05/10) Status post appendectomy (1971) Status post hysterectomy with oophorectomy (1995) Status post delivery (1970) Family History Father CVA (cerebral infarction) CT (myocardial infarction) Hypertension Alcohol abuse Obesity Mother Osteoporosis Tobacco use Hip fracture Son No problems noted. Social History household members: spouse Smoking Status: Never smoker alcohol intake: current Smoking Status: Never smoker alcohol intake frequency: 0-2 drinks per day Alcohol type: wine Exam Initial Vital Signs Initial Vital Signs: Vital Signs Temperature 98.3 F 07/15/24 19:51 Pulse Rate 97 H 07/15/24 19:51 Respiratory Rate 16 07/15/24 19:51 Blood Pressure 106/64 07/15/24 19:51 Pulse Oximetry 95 07/15/24 19:51 Oxygen Delivery Method Room Air 07/15/24 19:51 Const General: cooperative and comfortable HENMT Head: normal to inspection and normocephalic Resp Effort & Inspection: normal respiratory effort Cardio Rate: regular rate Pulses: radial pulses present on the left Back/Spine/Pelvis Cervical Spine: No cervical spinal tenderness Skin Other: 2 cm laceration to the chin. Neuro General: patient alert, patient awake, patient oriented x3 and moves all extremities Extrem Other: Discomfort with palpation of the left wrist. Left elbow and left shoulder unremarkable. Lower extremities unremarkable. Procedures Laceration Repair Laceration 1: Site: face Side (If applicable): left Size (cm): 1 Description: linear Depth: simple, single layer Pre-repair: wound explored, irrigated extensively and deep structures intact Skin layer closed with: dermabond Orthopedic Splinting/Casting Injury #1: Side: left Upper Extremity Injury Location: wrist Upper Extremity Immobilizer: sugar tong splint Post splinting neuro exam: intact Post splinting vascular exam: intact Placed by: Provider Course Orders Ordered: ED Orders 07/15/24 19:57 XR wrist LT min 3V Stat Discontinued Medications Hydrocodone Bitart/Acetaminophen (Hydrocodone/Acet 5/325 Tablet) 1 tab PO NOW ONE Stop: 07/15/24 20:48 Last Admin: 07/15/24 20:52 Dose: 1 tab Documented By: Hydrocodone Bitart/Acetaminophen (Hydrocodone/Acet 5/325 Prepack) 1 bottle MISC DIRECTED ONE Stop: 07/15/24 21:17 Last Admin: 07/15/24 21:21 Dose: 1 bottle Documented By: JR Vital Signs Vital signs: Vital Signs - 8 hr 07/15/24 19:51 07/15/24 21:20 Temperature 98.3 F 98.4 F Pulse Rate 97 H 60 Respiratory Rate 16 15 Blood Pressure 106/64 133/78 Pulse Oximetry 95 98 Oxygen Delivery Method Room Air Room Air MDM - Fall Imaging Data Extremity x-ray #1: Radiologist's Impression: PROCEDURE: XR WRIST LT MIN 3V INDICATIONS: s/p fall TECHNIQUE: 4 views of the wrist were acquired. COMPARISON: None. FINDINGS: Bones: Mildly displaced intra-articular distal radius fracture. Minimally displaced ulnar styloid fracture. On lateral view, there also age-indeterminate small bone fragments around the carpals. Mild background degenerative changes. Soft tissues: Chondrocalcinosis. IMPRESSION: Mildly displaced intra-articular distal radius fracture and minimally displaced ulnar styloid fracture. These are acute. Age-indeterminate bone fragments are seen around the carpal bones on lateral view. Chondrocalcinosis. [facility] Narrative Medical decision making narrative: Chin laceration was closed as described above. Cervical spine is cleared by nexus criteria. Splint placed on left wrist. No other injuries reported from the patient or found on the exam. We discussed care instructions and return precautions. She expressed understanding and agreement with the plan. Discharge Plan Departure Patient Disposition: Home Clinical Impression: Left wrist fracture, Chin laceration Instructions: DI for Wrist Fracture, DI for Laceration Repair-Skin Glue, How to Take Care of Your Splint Activity Restrictions/Additional Instructions: The splint that was placed today does need to stay on and stay clean and state dry. On Wednesday morning contact the orthopedic doctors of the number provided below for a follow-up. Use the pain medication as needed. Return to the emergency department for new symptoms Prescriptions: New hydrocodone-acetaminophen 5-325 mg tablet 1 tab PO Q4-6H PRN (Reason: pain) Qty: 10 0RF No Action levothyroxine 125 mcg tablet 125 mcg PO DAILY Qty: 90 3RF sertraline 100 mg tablet 150 mg PO QDAY Qty: 135 3RF simvastatin 40 mg tablet 40 mg PO BEDTIME Qty: 90 3RF Referrals: Erica Lomas DO [Primary Care Provider] - Kareen Tony MD [Physician] - Stand Alone Forms: Patient Portal/API/Survey
[2024-07-15] MEDS: HYDROCODONE/ACET 5/325 TABLET 1 TAB PO (20:52)
[2024-07-15 21:20] VITALS: BP 133/78; PULSE 60; RESP 15; TEMP 36.9; O2SAT 98
[2024-07-15] MEDS: HYDROCODONE/ACET 5/325 PREPACK 1 BOTTLE MISC (21:21)
== END 2024-07-15 21:24 | disposition home or self-care (01) ==
PROVIDERS: Emergency Provider Emergency Medicine; Family Provider Family Medicine; PCP Family Medicine
DX: S52.512A Displaced fracture of left radial styloid process, initial encounter for closed fracture (principal); S01.81XA Laceration without foreign body of other part of head, initial encounter; W10.9XXA Fall (on) (from) unspecified stairs and steps, initial encounter
CPT/HCPCS: 29125; 73110; 99283

== ENCOUNTER → 2024-10-06 09:42 | Outpatient (CLI) | payer MEDICARE, SELFPAY ==
[2024-10-06 10:34] LABS: Alanine Aminotransferase 20 IU/L (<35); Albumin 4.7 g/dL (3.5-5.0); Albumin Globulin Ratio 1.9 (1.0-2.8); Alkaline Phosphatase 85 U/L (38-126); Aspartate Aminotransferase 25 IU/L (14-36); BUN Creatinine Ratio 20.5 (6-22); Bilirubin Total 0.8 mg/dL (0.2-1.3); Blood Urea Nitrogen 17 mg/dL (7-17); Calcium 10.1 mg/dL (8.4-10.2); Carbon Dioxide 23 mmol/L (22-32); Chloride 106 mmol/L (98-107); Cholesterol 275 mg/dL (140-199); Estimated Glomerular Filt Rate > 60 mL/min (>60); Globulin 2.5 g/dL (1.7-4.1); Glucose 113 mg/dL (80-110); HDL Cholesterol 103 mg/dL (40-60); HEMOLYSIS < 15 (0-50); LDL Cholesterol Calculated 146 mg/dL (<100); Sodium 140 mmol/L (137-145); Total Protein 7.2 g/dL (6.3-8.2); Triglycerides 132 mg/dL (35-150)
[2024-10-06 11:02] LABS: TSH w/ Reflex to FT4 0.41 uIU/mL (0.47-4.68)
[2024-10-06 11:29] LABS: Free T4, Direct Thyroxine 0.85 ng/dL (0.78-2.19)
== END ==
PROVIDERS: Family Provider Family Medicine; PCP Family Medicine; Referring Provider Family Medicine; Visit Provider Family Medicine
DX: E03.9 Hypothyroidism, unspecified (principal); E78.5 Hyperlipidemia, unspecified
CPT/HCPCS: 36415; 80053; 80061; 84439; 84443

== ENCOUNTER 2025-05-03 10:41 | Emergency (ER) | payer MEDICARE, SELFPAY ==
[2025-05-03] VITALS (8 sets, daily range): BP systolic 150–191; BP diastolic 85–99; PULSE 80–87; RESP 18–30; TEMP 36.6; O2SAT 93–100; BMI 22.3
--- NOTE | 2025-05-03 11:06 | DI.CT.S_ITS ---
PROCEDURE: CT HEAD/BRAIN WO CON INDICATIONS: fall with poor recall TECHNIQUE: Noncontrast 4.5 mm thick angled axial sections acquired from the foramen magnum to the vertex, with coronal and sagittal reformats. For radiation dose reduction, the following was used: automated exposure control, adjustment of mA and/or kV according to patient size. COMPARISON: None. FINDINGS: Image quality: Diagnostic. CSF spaces: Basal cisterns are patent. No extra-axial fluid collections. The ventricles are symmetric in size and shape. Brain: No intracranial bleeds or mass effect. There is cerebral volume loss, with resultant ventricular and sulcal prominence. There are periventricular and deep white matter chronic small vessel ischemic changes. There is intracranial internal carotid artery atherosclerosis. Skull and face: Calvarium and visualized facial bones appear intact, without suspicious lesions. Sinuses: Visualized sinuses and mastoids are clear. IMPRESSION: No acute intracranial pathology. Dictated by: Ab Suarez M.D. on 05/03/2025 at 11:36 Approved by: Ab Suarez M.D. on 05/03/2025 at 11:37
--- NOTE | 2025-05-03 11:06 | DI.CT.S_ITS ---
PROCEDURE: CT CERVICAL SPINE WO CON INDICATIONS: fall with poor recall of event TECHNIQUE: Noncontrast 3 mm thick sections acquired from the skull base to the T4 level. Sagittal and coronal reformats were then constructed. For radiation dose reduction, the following was used: automated exposure control, adjustment of mA and/or kV according to patient size. COMPARISON: None. FINDINGS: Image quality: Excellent. Bones: No fractures or dislocations. Visualized superior ribs are intact. Mild to moderate, multilevel degenerative disc disease and diffuse facet arthrosis. Soft tissues: Prevertebral soft tissues are normal in thickness. No paravertebral hematomas. No apical pneumothoraces. IMPRESSION: No displaced fracture or traumatic subluxation. Dictated by: Dinh Cochran M.D. on 05/03/2025 at 11:35 Approved by: Dinh Cochran M.D. on 05/03/2025 at 11:35
--- NOTE | 2025-05-03 11:06 | DI.CT.S_ITS ---
PROCEDURE: CT CHEST ABD PEL WO CON INDICATIONS: fall with pain TECHNIQUE: After the administration of oral contrast, 5 mm thick sections acquired from the lung apices to the symphysis pubis. 5 mm thick coronal and sagittal reformats acquired, with additional 7 mm coronal MIP reformats through the lungs. For radiation dose reduction, the following was used: automated exposure control, adjustment of mA and/or kV according to patient size. COMPARISON: None. FINDINGS: Image quality: Diagnostic. CHEST: Lower Neck: No enlarged lymph nodes. Thyroid: No thyroid nodules which require sonographic follow up, per consensus guidelines. Axillae: No enlarged lymph nodes. Chest Wall: Unremarkable. Bones: Unremarkable. Lungs and Pleura: No pneumothorax or pleural effusions. No consolidation or suspicious nodule. Mild chronic interstitial pulmonary fibrosis. Heart: Heart size is normal. No pericardial effusion. Thoracic Vessels: The aorta and pulmonary arteries demonstrate normal size. Mediastinum and Patrica: No enlarged lymph nodes. Esophagus: No wall thickening. No hiatal hernia. ABDOMEN: Liver: No solid mass. Gallbladder: No radiopaque gallstones or wall thickening. Biliary ducts: No biliary dilation. Pancreas: No ductal dilation. Spleen: Size is within normal limits. Adrenal Glands: No adrenal nodules. Kidneys and Ureters: No hydronephrosis. No solid mass. No complex renal cystic lesion which requires follow up. Stomach and Bowel: Normal colonic caliber, without significant wall thickening. Advanced sigmoid diverticulosis. Peritoneum: No abnormal intraperitoneal fluid. No free air. Ventral Wall: No hernia. Abdominal Nodes: No retroperitoneal or mesenteric adenopathy by size criteria. Vessels: Aorta and inferior vena cava are normal in size. PELVIS: Pelvic Organs: Uterus is surgically absent. No adnexal masses.. Bladder: Unremarkable. Pelvic Nodes: No enlarged lymph nodes. Miscellaneous: No inguinal hernias are seen. Bones: No aggressive osseous abnormality. S-shaped scoliotic curvature, degenerative change. Mild chronic L5 compression. Diffuse osteopenia. No acute compression fractures. Multiple left-sided rib fractures.. This includes minimally displaced lateral rib fractures involving the left 6th, 7th, and 8th ribs. The 8th rib fracture is a segmental fracture. IMPRESSION: 1. There are 3 contiguous non displaced or minimally displaced left-sided rib fractures. 2. No associated pneumothorax. 3. No other significant sequelae of acute trauma in the chest, abdomen, and pelvis. 4. Advanced sigmoid diverticulosis. Dictated by: Ab Suarez M.D. on 05/03/2025 at 11:49 Approved by: Ab Suarez M.D. on 05/03/2025 at 11:59
--- NOTE | 2025-05-03 11:08 | DI.RAD.S_ITS ---
PROCEDURE: XR ELBOW LT MIN 3V INDICATIONS: fall with pain TECHNIQUE: 3 views of the elbow were acquired. COMPARISON: None. FINDINGS: Bones: No fractures or dislocations. No suspicious bony lesions. Soft tissues: No elbow joint effusion. No suspicious soft tissue calcifications. IMPRESSION: No acute bony abnormality or significant joint effusion. Dictated by: Dinh Cochran M.D. on 05/03/2025 at 11:33 Approved by: Dinh Cochran M.D. on 05/03/2025 at 11:34
--- NOTE | 2025-05-03 13:23 | ED.FALL ---
HPI - Fall General Chief Complaint: Fall Stated Complaint: left rib pain fell 5 days ago Time Seen by Provider: 05/03/25 13:08 Source: patient Mode of arrival: Ambulatory History of Present Illness HPI Narrative: Patient here with her . Complains of left rib pain and left elbow pain. Patient had mechanical fall slipped on some wet pavement at a neighbor's driveway towards the bottom of the incline. She fell on top of her as well as the drive way. No trouble breathing no fever no chills. Patient has full active range motion of the left elbow. Again, injury occurred 4 days ago, on Wednesday. Related Data Home Medications ?Medication ?Instructions ?Recorded ?Confirmed acetaminophen 500 mg tablet 500 mg PO Q6H PRN 04/17/25 04/17/25 (Tylenol Extra Strength) naproxen sodium 220 mg capsule 220 mg PO BID PRN 04/17/25 04/17/25 (Aleve) Previous Rx's ?Medication ?Instructions ?Recorded levothyroxine 125 mcg tablet 125 mcg PO DAILY #90 tabs 10/04/24 simvastatin 40 mg tablet 40 mg PO BEDTIME #90 tabs 10/04/24 losartan 25 mg tablet 25 mg PO DAILY blood pressure #90 01/30/25 tabs sertraline 100 mg tablet 200 mg (2 x 100 mg) PO QDAY #180 01/30/25 tabs hydrocodone 5 mg-acetaminophen 325 1 tab PO Q8H PRN pain #15 tabs 05/03/25 mg tablet ondansetron 4 mg disintegrating 4 mg PO Q6H PRN nausea and 05/03/25 tablet vomiting #20 tabs Allergies Allergy/AdvReac Type Severity Reaction Status Date / Time No Known Drug Allergies Allergy Verified 04/17/25 13:32 Review of Systems Review of Systems Narrative: GENERAL: Negative chills, fatigue, malaise, fever, sweats. HEENT: Negative sinus pain, ear pain, sore throat RESPIRATORY: Negative dyspnea, cough CARDIOVASCULAR: Negative chest pain, palpitations GASTROINTESTINAL: Negative vomiting, nausea, abdominal pain : Negative dysuria, frequency, hematuria MUSCULOSKELETAL: Positive muscle or bony pain SKIN: Negative rash, skin lesions NEUROLOGIC: Negative weakness, numbness ROS Unobtainable: All systems reviewed & are unremarkable except as noted in HPI and below Patient History Medical History (Updated 05/03/25 @ 13:32 by Rolf Metzger MD) Primary osteoarthritis of right hip Primary osteoarthritis of right knee LIBAN (generalized anxiety disorder) Benign essential hypertension Lumbar spondylosis Dorsalgia Lumbar radiculopathy Encounter for subsequent annual wellness visit (AWV) in Medicare patient Balance problem Osteoarthritis of right knee Right knee pain Thoracic radiculopathy Intercostal neuralgia Ribs, multiple fractures Spasm of thoracic back muscle Nausea Environmental allergies Nonscarring hair loss Pelvic fracture Osteopenia Constipation Hypothyroidism Fibromyalgia Osteoporosis Hyperlipidemia Hemorrhoids Depression Actinic keratosis Surgical History Status post colonoscopy (07/05/10) Status post appendectomy (1971) Status post hysterectomy with oophorectomy (1995) Status post delivery (1970) Family History Father CVA (cerebral infarction) [place] (myocardial infarction) Hypertension Alcohol abuse Obesity Mother Osteoporosis Tobacco use Hip fracture Son No problems noted. Social History household members: spouse Smoking Status: Never smoker alcohol intake: current Smoking Status: Never smoker alcohol intake frequency: 0-2 drinks per day Alcohol type: wine Exam Narrative Exam Narrative: GENERAL: in no distress, not toxic not dyspneic HEAD: Normocephalic. EYES: Pupils equal round ENT: Mucous membranes moist. NECK: Trachea midline. No midline tenderness or step-off of the cervical thoracic or lumbar spine CARDIOVASCULAR: Regular rate and rhythm RESPIRATORY: Clear to auscultation. Breath sounds equal bilaterally. No wheezes, rales, or rhonchi. Reproducible left lateral mid ribs around rib 7. And 8. No crepitus no flail. Patient is speaking full sentences. GASTROINTESTINAL: Abdomen soft, non-tender BACK: No flank tenderness. EXTREMITIES: No gross deformities. Examination left elbow small bruise at the olecranon but full active range of motion at the elbow with supination pronation flexion and extension. No deformity. NEURO: AOx4. Clear speech SKIN: Warm and dry PSYCH: Not anxious, is cooperative Initial Vital Signs Initial Vital Signs: Vital Signs Temperature 97.8 F 05/03/25 10:53 Pulse Rate 82 05/03/25 10:53 Respiratory Rate 30 H 05/03/25 10:53 Blood Pressure 191/98 H 05/03/25 10:53 Pulse Oximetry 97 05/03/25 10:53 Oxygen Delivery Method Room Air 05/03/25 10:53 Course Orders Ordered: ED Orders 05/03/25 11:06 CT cervical spine wo con Stat CT chest abd pel wo con Stat CT head/brain wo con Stat 05/03/25 11:08 XR elbow LT min 3V Stat Discontinued Medications Hydrocodone Bitart/Acetaminophen (Hydrocodone/Acet 5/325 Tablet) 1 tab PO NOW ONE Stop: 05/03/25 13:34 Last Admin: 05/03/25 13:39 Dose: 1 tab Documented By: JUAN Ondansetron HCl (Ondansetron 4 Mg Odt) 4 mg SL NOW ONE Stop: 05/03/25 13:34 Last Admin: 05/03/25 13:39 Dose: 4 mg Documented By: JUAN Vital Signs Vital signs: Vital Signs - 8 hr 05/03/25 10:53 05/03/25 12:57 05/03/25 12:59 Temperature 97.8 F Pulse Rate 82 87 Respiratory Rate 30 H Blood Pressure 191/98 H 171/94 H Pulse Oximetry 97 93 Oxygen Delivery Method Room Air 05/03/25 12:59 05/03/25 13:00 05/03/25 13:00 Temperature Pulse Rate 87 85 Respiratory Rate Blood Pressure 153/85 H Pulse Oximetry 100 100 Oxygen Delivery Method 05/03/25 13:15 05/03/25 13:15 05/03/25 13:30 Temperature Pulse Rate 81 Respiratory Rate Blood Pressure 150/99 H 154/95 H Pulse Oximetry 99 Oxygen Delivery Method 05/03/25 13:30 05/03/25 13:46 05/03/25 13:46 Temperature Pulse Rate 80 84 Respiratory Rate Blood Pressure 169/98 H Pulse Oximetry 99 98 Oxygen Delivery Method 05/03/25 14:21 Temperature Pulse Rate 83 Respiratory Rate 18 Blood Pressure 154/95 H Pulse Oximetry 98 Oxygen Delivery Method Room Air MDM - Fall MDM Narrative Medical decision making narrative: Patient here with her . Complains of left rib pain and left elbow pain. Patient had mechanical fall slipped on some wet pavement at a neighbor's driveway towards the bottom of the incline. She fell on top of her as well as the drive way. No trouble breathing no fever no chills. Patient has full active range motion of the left elbow. Again, injury occurred 4 days ago, on Wednesday. MDM After history and exam, CT head CT cervical spine CT chest abdomen pelvis x-ray left elbow, exam is reassuring. No blood work indicated. [place] Zofran ordered. Incentive spirometer. Differential considered: Includes but not limited to elbow contusion/fracture/dislocation, pneumothorax pulmonary contusion rib fracture Medical records reviewed: No recent visit for this complaint Imaging studies independently reviewed: CT head CT cervical spine no acute finding. CT chest abdomen pelvis 3 contiguous rib fractures on the left. Consultations: 1:28 p.m.. Spoke with General surgery, Dr. Lea, exam and imaging studies are reassuring. No admission to hospital indicated. Patient may be discharged home. Re-evaluations: 1:30 p.m.. Updated patient my discussion with general surgery and treatment plan. She agrees with follow up with primary care as well as incentive spirometer and pain medication. Return precautions reviewed. She desires discharge home. Discussion: Appropriate for discharge home. Injury occurred 4 days ago Exam is reassuring. Return precautions reviewed patient and . Pain is controlled. Return precautions reviewed. They desire discharge home. Diagnosis: Multiple rib fracture, elbow contusion Discharge Plan Departure Patient Disposition: Home Clinical Impression: Multiple rib fractures Qualifiers: Encounter type: initial encounter Fracture type: closed Laterality: left Qualified Code(s): S22.42XA - Multiple fractures of ribs, left side, initial encounter for closed fracture Contusion of elbow, left Qualifiers: Encounter type: initial encounter Qualified Code(s): S50.02XA - Contusion of left elbow, initial encounter Instructions: How to Use an Incentive Spirometer, DI for Rib Fracture, DI for Contusion Activity Restrictions/Additional Instructions: No driving operating machinery today or when taking prescribe pain medication. You have broken 3 ribs on the left side. No surgery is indicated. General surgery service was contacted. Please follow up with your family doctor in a week for re-evaluation. Use provided incentive spirometer every 2 hours while awake to exercise the lungs and chest wall muscles. Short pain medication has been provided for you. Return if worse if any questions or concerns Prescriptions: New ondansetron 4 mg tablet,disintegrating 4 mg PO Q6H PRN (Reason: nausea and vomiting) Qty: 20 0RF hydrocodone-acetaminophen 5-325 mg tablet 1 tab PO Q8H PRN (Reason: pain) Qty: 15 0RF No Action levothyroxine 125 mcg tablet 125 mcg PO DAILY Qty: 90 3RF simvastatin 40 mg tablet 40 mg PO BEDTIME Qty: 90 3RF sertraline 100 mg tablet 200 mg PO QDAY Qty: 180 3RF losartan 25 mg tablet 25 mg PO DAILY Qty: 90 3RF acetaminophen [Tylenol Extra Strength] 500 mg tablet 500 mg PO Q6H PRN naproxen sodium [Aleve] 220 mg capsule 220 mg PO BID PRN Referrals: Erica Lomas DO [Primary Care Provider, Family Practice] Stand Alone Forms: Patient Portal/API
[2025-05-03] MEDS: ONDANSETRON 4 MG ODT SL (13:39)
== END 2025-05-03 14:23 | disposition home or self-care (01) ==
PROVIDERS: Emergency Provider Emergency Medicine; Family Provider Family Medicine; PCP Family Medicine
DX: S22.42XA Multiple fractures of ribs, left side, initial encounter for closed fracture (principal); S50.02XA Contusion of left elbow, initial encounter; W01.0XXA Fall on same level from slipping, tripping and stumbling without subsequent striking against object, initial encounter
CPT/HCPCS: 70450; 71250; 72125; 73080; 74176; 99283; 99284

== ENCOUNTER 2025-06-08 07:00 | Emergency (ER) | payer MEDICARE, SELFPAY ==
[2025-06-08] VITALS (8 sets, daily range): BP systolic 114–154; BP diastolic 58–77; PULSE 77–107; RESP 13–26; TEMP 36.6; O2SAT 92–98; BMI 22.3
--- NOTE | 2025-06-08 07:23 | DI.RAD.S_ITS ---
PROCEDURE: XR CHEST 1V INDICATIONS: Trauma TECHNIQUE: One view of the chest was acquired. COMPARISON: None. FINDINGS: Surgical changes and devices: None. Lungs and pleura: Lungs are clear. No pleural effusions or pneumothorax. Mediastinum: Mediastinal contours appear normal. Heart size is normal. Bones and chest wall: No suspicious bony lesions. Overlying soft tissues appear unremarkable. IMPRESSION: No acute cardiopulmonary abnormality is seen. Dictated by: Ab Suarez M.D. on 06/08/2025 at 8:22 Approved by: Ab Suarez M.D. on 06/08/2025 at 8:22
--- NOTE | 2025-06-08 07:23 | DI.CT.S_ITS ---
PROCEDURE: CT TRAUMA CHEST ABDOMEN PELVIS INDICATIONS: Hx fall, mid right back pain TECHNIQUE: After the administration of intravenous contrast, 5 mm thick sections acquired from the lung apices to the symphysis. 2.5 mm thick coronal and sagittal reformats were acquired. Additional 7 mm thick coronal maximum intensity projection (MIP) reformats acquired through the lungs. Optional 10-minute delayed imaging may be performed from the kidneys to the bladder. For radiation dose reduction, the following was used: automated exposure control, adjustment of mA and/or kV according to patient size. COMPARISON: None. FINDINGS: Image quality: Diagnostic. CHEST: Lower Neck: No enlarged lymph nodes. Thyroid: No thyroid nodules which require sonographic evaluation. Axillae: No enlarged lymph nodes. Chest Wall: No subcutaneous gas. Lungs and Pleura: No pulmonary contusions or lacerations. No acute airspace opacities. No pneumothorax or hemothorax. Mediastinum: No mediastinal hematomas. Heart size is normal. No pericardial effusion. Thoracic aorta and pulmonary arteries demonstrate normal size and enhancement. No mediastinal or hilar adenopathy. Esophagus is normal in caliber. No hiatal hernia. ABDOMEN: Liver: No lacerations. Gallbladder: No radiopaque gallstones or wall thickening. Biliary ducts: No biliary dilation. Pancreas: Homogenous enhancement. Spleen: Homogenous enhancement without laceration or hematoma. Adrenal Glands: Symmetric enhancement. Kidneys and Ureters: Symmetric enhancement. No hydronephrosis. No solid mass. No complex renal cystic lesion which requires follow up. Stomach and Bowel: Normal colonic caliber, without significant wall thickening. Advanced sigmoid diverticulosis without CT evidence of acute diverticulitis. Large fecal load. Peritoneum: Very mild abdominal ascites. No free air. Ventral Wall: No hernia. Abdominal Nodes: No retroperitoneal or mesenteric adenopathy by size criteria. Vessels: Aorta and inferior vena cava are normal in size. PELVIS: Pelvic Organs: Uterus is surgically absent. No adnexal masses. Posterior pelvic floor relaxation with anterior rectocele. Bladder: Normal thickness. Pelvic Nodes: No enlarged lymph nodes. Miscellaneous: No inguinal hernias are seen. Bones: Pelvic ring and hip joints appear intact. No displaced rib fractures. likely chronic compressions of C7 and T7 vertebral bodies. S shaped lumbar scoliotic curvature. IMPRESSION: No evidence of traumatic injury to the chest, abdomen or pelvis. S-shaped scoliotic lumbar curvature, likely old compressions of C7 and T7. No acute process in the chest, abdomen, and pelvis. Remote hysterectomy. Pelvic floor relaxation with anterior rectocele. Minimal ascites. Dictated by: Ab Suarez M.D. on 06/08/2025 at 8:23 Approved by: Ab Suarez M.D. on 06/08/2025 at 8:32
[2025-06-08] MEDS: ONDANSETRON 4 MG/2 ML INJ IV (07:48)
[2025-06-08] MEDS: MORPHINE 4 MG/ML INJ IV (07:48)
[2025-06-08] MEDS: SODIUM CHLORIDE 0.9% 1,000 ML 999 ML IV (07:48)
--- NOTE | 2025-06-08 07:50 | EKG_ITS ---
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
[2025-06-08 08:17] LABS: Add Manual Diff / Slide Review NO; Hematocrit 38.5 % (36-46); Hemoglobin 12.9 g/dL (12.0-16.0); Lymphocytes Absolute Auto 800 /uL (1100-4500); Mean Corpuscular HGB Conc 33.6 % (30-36); Mean Corpuscular Hemoglobin 30.3 PG (26-34); Mean Corpuscular Volume 90.2 fL (80-100); Platelet Count 141 X10^3/uL (150-400)
[2025-06-08 08:34] LABS: Lactate (Lactic Acid) 1.1 mmol/L (0.7-2.1)
[2025-06-08 08:36] LABS: Alanine Aminotransferase 17 IU/L (<35); Albumin 4.1 g/dL (3.5-5.0); Albumin Globulin Ratio 1.7 (1.0-2.8); Alkaline Phosphatase 83 U/L (38-126); Blood Urea Nitrogen 18 mg/dL (7-17); Calcium 8.8 mg/dL (8.4-10.2); Carbon Dioxide 22 mmol/L (22-32); Chloride 106 mmol/L (98-107); Estimated Glomerular Filt Rate > 60 mL/min (>60); Ethanol (ETOH) < 10 mg/dL (<10); Globulin 2.4 g/dL (1.7-4.1); Glucose 89 mg/dL (70-99); HEMOLYSIS < 15 (0-50); Lipase 55 U/L (23-300); Potassium 4.4 mmol/L (3.4-5.1); Sodium 137 mmol/L (137-145); Total Protein 6.5 g/dL (6.3-8.2)
[2025-06-08 08:55] LABS: INR 1.0 (0.9-1.3); Prothrombin Time 11.4 SECONDS (9.4-12.5)
[2025-06-08 08:58] LABS: PTT Partial Thromboplastin Tim 26 SECONDS (25.1-36.5)
--- NOTE | 2025-06-08 10:08 | ED.BACK ---
HPI - Back Pain/Injury General Chief Complaint: Back Pain/Injury Stated Complaint: Middle right back pain , 5 days Time Seen by Provider: 06/08/25 07:07 History of Present Illness HPI Narrative: 80-year-old female with past medical history of a fall 1 month ago, she stated she was diagnosed with 3 left-sided inferior rib fractures, sent home with incentive spirometry and pain medication. States that she was lifting some pumpkins on Wednesday and noticed that she has had increased pain since then. denies fevers, chills, nausea, vomiting, diarrhea, abdominal pain, chest pain, shortness of breath, dizziness, headache, and urinary symptoms, or any productive cough with sputum. Related Data Home Medications ?Medication ?Instructions ?Recorded ?Confirmed acetaminophen 500 mg tablet 500 mg PO Q6H PRN 04/17/25 05/08/25 (Tylenol Extra Strength) naproxen sodium 220 mg capsule 220 mg PO BID PRN 04/17/25 05/08/25 (Aleve) Previous Rx's ?Medication ?Instructions ?Recorded levothyroxine 125 mcg tablet 125 mcg PO DAILY #90 tabs 10/04/24 simvastatin 40 mg tablet 40 mg PO BEDTIME #90 tabs 10/04/24 losartan 25 mg tablet 25 mg PO DAILY blood pressure #90 01/30/25 tabs sertraline 100 mg tablet 200 mg (2 x 100 mg) PO QDAY #180 01/30/25 tabs hydrocodone 5 mg-acetaminophen 325 1 tab PO Q8H PRN pain #15 tabs 25 mg tablet ondansetron 4 mg disintegrating 4 mg PO Q6H PRN nausea and 05/03/25 tablet vomiting #20 tabs naproxen 500 mg tablet 500 mg PO BID PRN pain #40 tabs 05/08/25 Allergies Allergy/AdvReac Type Severity Reaction Status Date / Time No Known Drug Allergies Allergy Verified 05/08/25 14:58 Review of Systems Review of Systems ROS Unobtainable: All systems reviewed & are unremarkable except as noted in HPI and below Patient History Medical History (Updated 06/08/25 @ 10:15 by Karthik Haji MD) Primary osteoarthritis of right hip Primary osteoarthritis of right knee LIBAN (generalized anxiety disorder) Benign essential hypertension Lumbar spondylosis Dorsalgia Lumbar radiculopathy Encounter for subsequent annual wellness visit (AWV) in Medicare patient Balance problem Osteoarthritis of right knee Right knee pain Thoracic radiculopathy Intercostal neuralgia Ribs, multiple fractures Spasm of thoracic back muscle Nausea Environmental allergies Nonscarring hair loss Pelvic fracture Osteopenia Constipation Hypothyroidism Fibromyalgia Osteoporosis Hyperlipidemia Hemorrhoids Depression Actinic keratosis Surgical History Status post colonoscopy (07/05/10) Status post appendectomy (1971) Status post hysterectomy with oophorectomy (1995) Status post delivery (1970) Family History Father CVA (cerebral infarction) [place] (myocardial infarction) Hypertension Alcohol abuse Obesity Mother Osteoporosis Tobacco use Hip fracture Son No problems noted. Social History household members: spouse alcohol intake: current alcohol intake frequency: 0-2 drinks per day Alcohol type: wine Exam Narrative Exam Narrative: Tenderness but no deformity noted to bilateral inferior ribs left greater than right. Initial Vital Signs Initial Vital Signs: Vital Signs Temperature 97.8 F 06/08/25 07:13 Pulse Rate 107 H 06/08/25 07:13 Respiratory Rate 18 06/08/25 07:13 Blood Pressure 154/77 H 06/08/25 07:13 Pulse Oximetry 98 06/08/25 07:13 Oxygen Delivery Method Room Air 06/08/25 07:13 Const General: cooperative, healthy appearing, well developed and well hydrated Nutritional Appearance: average body habitus [facility] Head: normal to inspection Ears: external ears normal Nose: external nose normal and nares normal Face and sinus: sinuses nontender, face symmetric, ecchymosis not on the right, not on the left and not bilaterally, erythema not on the right, not on the left and not bilaterally and edema not on the right, not on the left and not bilaterally Mouth: lip normal Eyes General: Yes appearance normal, both eyes and all related structures Eyelids: eyelids normal Sclera: sclerae normal Pupils: PERRL Neck Neck: normal visual inspection Resp Effort & Inspection: normal respiratory effort and able to speak in complete sentences Cardio Rate: regular rate Rhythm: regular rhythm Pulses: radial pulses present GI Inspection: normal to inspection and non-distended General: bimanual renal exam normal bilaterally Back/Spine/Pelvis Back: normal to inspection Skin General: no rashes or lesions noted Neuro General: patient alert, patient awake, patient oriented x3, gait normal, moves all extremities, normal light touch, pain and propioception, no focal motor deficits and CN's II-XI intact bilaterally Cognition: normal cognition Speech: speech normal Gait: normal gait Motor: muscle tone normal throughout Sensory Exam: no sensory deficits noted Extrem General: normal to inspection Psych Appearance: grossly normal Mental Status: mental status grossly normal Speech and Movement: speech and movement normal Mood: congruent mood Attitude: cooperative Thought Process: normal Thought Content: normal Judgment: judgment good Course Orders Ordered: ED Orders 06/08/25 07:23 CT Trauma Chest Abdomen Pelvis Stat XR chest 1V Stat EKG-12 Lead Stat 06/08/25 08:05 Complete Blood Count AUTO DIFF Stat Comprehensive Metabolic Panel Stat Ethanol (ETOH) Stat Lactate (Lactic Acid) Stat Lipase Stat PTT Partial Thromboplastin [place] Stat Prothrombin Time INR Stat Type and Screen Stat Discontinued Medications Sodium Chloride (Normal Saline 0.9%) 1,000 mls @ 999 mls/hr IV BOLUS ONE Stop: 06/08/25 08:23 Last Infusion: 06/08/25 09:21 Dose: Infused Documented By: Admin: 06/08/25 07:48 Dose: 999 mls/hr Documented By: RB Morphine Sulfate (Morphine 4 Mg/Ml Inj) 4 mg IV NOW ONE Stop: 06/08/25 07:24 Last Admin: 06/08/25 07:48 Dose: 4 mg Documented By: RB Ondansetron HCl (Ondansetron 4 Mg/2 Ml Inj) 4 mg IV NOW ONE Stop: 06/08/25 07:24 Last Admin: 06/08/25 07:48 Dose: 4 mg Documented By: RB Vital Signs Vital signs: Vital Signs - 8 hr 06/08/25 07:13 Temperature 97.8 F Pulse Rate 107 H Respiratory Rate 18 Blood Pressure 154/77 H Pulse Oximetry 98 Oxygen Delivery Method Room Air MDM - Back Pain/Injury Lab Data 06/08/25 08:05 06/08/25 08:05 Labs: Lab Results 06/08/25 Range/Units 08:05 WBC 5.7 (4.5-11.0) X10^3/uL RBC 4.26 (4.0-5.2) X10^6/uL Hgb 12.9 (12.0-16.0) g/dL Hct 38.5 (36-46) % MCV 90.2 (80-100) fL MCH 30.3 (26-34) PG MCHC 33.6 (30-36) % RDW 13.8 (11.6-14.8) % Plt Count 141 L (150-400) X10^3/uL Neut % (Auto) 73.0 (50-75) % Lymph % (Auto) 13.3 L (25-40) % [place] % (Auto) 9.6 (3-14) % Eos % (Auto) 3.4 (2-4) % Baso % (Auto) 0.7 (0-2) % Neut # (Auto) 4100 (4726-5754) /uL Lymph # (Auto) 800 L (5235-9070) /uL [place] # (Auto) 500 (0-900) /uL Eos # (Auto) 200 (0-450) /uL Baso # (Auto) 0 (0-100) /uL PT 11.4 (9.4-12.5) SECONDS INR 1.0 (0.9-1.3) APTT 26 (25.1-36.5) SECONDS Sodium 137 (137-145) mmol/L Potassium 4.4 (3.4-5.1) mmol/L Chloride 106 (98-107) mmol/L Carbon Dioxide 22 (22-32) mmol/L BUN 18 H (7-17) mg/dL Creatinine 0.93 (0.52-1.04) mg/dL Estimated GFR > 60 (>60) mL/min BUN/Creatinine Ratio 19.4 (6-22) Glucose 89 (70-99) mg/dL Lactate 1.1 (0.7-2.1) mmol/L Calcium 8.8 (8.4-10.2) mg/dL Total Bilirubin 0.6 (0.2-1.3) mg/dL AST 28 (14-36) IU/L ALT 17 (<35) IU/L Alkaline Phosphatase 83 (38-126) U/L Total Protein 6.5 (6.3-8.2) g/dL Albumin 4.1 (3.5-5.0) g/dL Globulin 2.4 (1.7-4.1) g/dL Albumin/Globulin Ratio 1.7 (1.0-2.8) Lipase 55 (23-300) U/L Ethyl Alcohol < 10 (<10) mg/dL Blood Type A Positive Antibody Screen Negative MDM Narrative Medical decision making narrative: Pt presents with blunt trauma. CXR given possibility of PTX/pulmonary contusion/rib fx CT brain considered to r/o intracranial hemorrhage/injury/skull fracture, however, deferred due to reassuring history and physical exam. CT C-spine considered to r/o C-spine fx/dislocation/injury, however, deferred due to reassuring history and physical exam. CT ab/pelvis/chest ordered to r/o intra-abdominal/intrathoracic injury including pulmonary contusion/PTX/renal injury/colon injury/liver injury/spleen injury, etc. Labs to r/o severe anemia, electrolyte abnormality (including hypokalemia, hyperkalemia, hypernatremia, hyponatremia, hyperglycemia, hypoglycemia, etc), thrombocytopenia. Patient with pain under better control, lab and imaging workup unremarkable, diagnosis is acute on chronic lower rib pain. Discharge Plan Departure Patient Disposition: Home Clinical Impression: Acute chest pain Instructions: DI for Rib Fracture Activity Restrictions/Additional Instructions: Please return to ED if you have worsening chest pain, shortness of breath, dizziness, nausea, passing out, or any other concern. Si el dolor de pecho sigue, pierde conocimiento, tiene problemas con respiraci?n o cualquier otra tali, por favor vuelve a urgencias. Please return if you have difficulty moving the affected joint, worsening pain after tomorrow, a sudden loss of sensation, or if the affected area becomes cold. Please pickle pumper Arnica gel OTC for topical pain relief. Prescriptions: No Action naproxen 500 mg tablet 500 mg PO BID PRN (Reason: pain) Qty: 40 0RF levothyroxine 125 mcg tablet 125 mcg PO DAILY Qty: 90 3RF simvastatin 40 mg tablet 40 mg PO BEDTIME Qty: 90 3RF sertraline 100 mg tablet 200 mg PO QDAY Qty: 180 3RF losartan 25 mg tablet 25 mg PO DAILY Qty: 90 3RF ondansetron 4 mg tablet,disintegrating 4 mg PO Q6H PRN (Reason: nausea and vomiting) Qty: 20 0RF hydrocodone-acetaminophen 5-325 mg tablet 1 tab PO Q8H PRN (Reason: pain) Qty: 15 0RF acetaminophen [Tylenol Extra Strength] 500 mg tablet 500 mg PO Q6H PRN naproxen sodium [Aleve] 220 mg capsule 220 mg PO BID PRN Referrals: Erica Lomas DO [Primary Care Provider, Family Practice] Stand Alone Forms: Patient Portal/API
== END 2025-06-08 10:41 | disposition home or self-care (01) ==
PROVIDERS: Emergency Provider Emergency Medicine; Family Provider Family Medicine; PCP Family Medicine
DX: R07.89 Other chest pain (principal); S22.42XD Multiple fractures of ribs, left side, subsequent encounter for fracture with routine healing; W19.XXXD Unspecified fall, subsequent encounter
CPT/HCPCS: 36415; 71045; 71275; 74177; 80053; 80320; 83605; 83690; 85025; 85610; 85730; 86850; 86900; 86901; 93005; 96374; 96375; 99284; J2272; J2405; J7030; Q9967

== ENCOUNTER → 2025-07-02 13:44 | Outpatient (CLI) | payer MEDICARE, SELFPAY ==
--- NOTE | 2025-07-02 13:47 | DI.MRI.S_ITS ---
PROCEDURE: MR THORACIC SPINE WO CON INDICATIONS: t-spine pain x 4 weeks TECHNIQUE: Noncontrast sagittal T1 spine echo and T2 fast spin echo, sagittal STIR, and T2 fast spin echo through the thoracic spine. COMPARISON: [facility], CT, CT CHEST ABD PEL WO CON, 05/03/2025, 11:22. [facility], CT, CT TRAUMA CHEST ABDOMEN PELVIS, 06/08/2025, 7:29. [facility], MR, MR THORACIC SPINE WO CON, 11/13/2022, 10:53. FINDINGS: Image quality: Diagnostic Alignment and Curvature: Thoracolumbar junctional dextro scoliosis. Bone Marrow: Subacute T8 vertebral body compression fracture with comminution of the inferior endplate which results in 70 percent anterior vertebral body height loss. No retropulsed bony fragment. The fracture cleft extends to the posterior vertebral body wall. Bone marrow edema within the bilateral mild left greater than right, facet joints without extension of the fracture to the posterior elements. Chronic, healed, T1 compression deformity which results in approximate 50 percent anterior vertebral. No retropulsed bony fragment. Spinal Cord: Visualized spinal cord is normal in size and signal. Paraspinous Soft Tissues: No paravertebral masses. Intact anterior and posterior longitudinal ligaments. Miscellaneous: Bilateral [id number] neural foraminal stenosis at T8-9 secondary to vertebral body height loss. Right moderate to severe neural foraminal stenosis at T10-11 secondary to scoliotic curvature and asymmetric facet arthrosis. No left neural foraminal stenosis. Mild right neural foraminal stenosis at T11-12 secondary to scoliotic curvature and asymmetric facet arthrosis. Moderate neural foraminal stenosis on the right at T12-L1 secondary to scoliotic curvature and facet arthrosis with degenerative retrolisthesis. Otherwise the spinal canal is widely patent at all levels and the neural foraminal are patent. IMPRESSION: 1. Subacute T8 vertebral body compression fracture with comminution of the inferior endplate (incomplete burst type, AO Spine A3), and progressive interval 70 percent anterior vertebral body height loss. 2. Healed T1 anterior vertebral body compression deformity with approximate 50 percent anterior vertebral body height loss. 3. No spinal canal stenosis. 4. Multilevel neural foraminal stenosis is moderate to severe on the right at T10-11 and moderate at T12-L1. Dictated by: Filippo Flores M.D. on 07/02/2025 at 15:17 Approved by: Filippo Flores M.D. on 07/02/2025 at 15:34
== END ==
LOC: MRI 13:45
PROVIDERS: Family Provider Family Medicine; PCP Family Medicine; Referring Provider Family Medicine; Visit Provider Family Medicine
DX: M48.54XA Collapsed vertebra, not elsewhere classified, thoracic region, initial encounter for fracture (principal); M48.04 Spinal stenosis, thoracic region; M48.05 Spinal stenosis, thoracolumbar region; M47.814 Spondylosis without myelopathy or radiculopathy, thoracic region; M41.9 Scoliosis, unspecified; M54.9 Dorsalgia, unspecified
CPT/HCPCS: 72146